=== PATIENT | female | born 1995 | race Caucasian/White ===

== ENCOUNTER 2019-11-17 10:24 | Outpatient (REF) | payer SELFPAY ==
[2019-11-17 12:32] LABS: Estmated Average Glucose 105; Hemoglobin A1C 5.3 % (4.0-6.0)
[2019-11-17 13:58] LABS: Chol HDL Ratio 2.44 mg/dL (0.0-4.40); Cholesterol 134 mg/dL (0-200); Glucose 79 mg/dL (65-115); HDL Cholesterol 55 mg/dL (60-100); LDL Cholesterol Calculated 62 mg/dL (50-129); LDL HDL Ratio 1.13 RATIO (0.00-3.22); Triglycerides 85 mg/dL (0-150)
== END 2019-11-17 10:25 | disposition home or self-care (01) ==
LOC: LAB 10:24
PROVIDERS: Visit Provider Dermatology
DX: Z01.89 Encounter for other specified special examinations (principal)
CPT/HCPCS: 80061; 82947; 83036

== ENCOUNTER 2020-01-18 16:08 | Outpatient (CLI) | payer SELFPAY ==
[2020-01-18 16:30] LABS: Basophils # 0.1 10^3/uL (0.0-0.1); Basophils % 0.8 %; Eosinophils # 0.1 10^3/uL (0.0-0.8); Eosinophils % 1.3 %; Hematocrit 39.5 % (37.0-47.0); Hemoglobin 12.6 g/dL (11.5-15.3); Lymphocytes # 1.7 10^3/uL (0.8-4.8); Lymphocytes % 21.9 %; Mean Corpuscular HGB Conc 31.9 g/dL (30.0-36.0); Mean Corpuscular Hemoglobin 29.4 pg (28.0-34.0); Mean Corpuscular Volume 92.1 fL (81-99); Mean Platelet Volume 9.5 fL (7.4-10.4); Monocytes # 0.5 10^3/uL (0.2-0.9); Monocytes % 5.7 %; Neutrophils # 5.5 10^3/uL (1.8-7.7); Neutrophils % 70.2 %; Nucleated Red Blood Cells % 0 %; Platelet Count 279 10^3/cmm (130-400); Red Blood Count 4.29 10^6/uL (4.1-5.3); Red Cell Distribution Width 12.5 % (12.1-15.1); White Blood Count 7.9 10^3/uL (4.0-10.0)
[2020-01-18 16:50] LABS: Alanine Aminotransferase 9 U/L (0-33); Albumin Level 4.5 g/dL (3.5-5.2); Alkaline Phosphatase 129 IU/L (35-105); Anion Gap 13.7 (5-19); Aspartate Amino Transferase 16 U/L (0-32); Blood Urea Nitrogen 10 mg/dL (6-20); Calcium 9.9 mg/dL (8.5-10.5); Carbon Dioxide 25 mmol/L (22-29); Chloride 105 mmol/L (98-107); Globulin 2.4 g/dL (1.3-4.6); Glomerular Filtration Rate 104.6 mL/min (90-130); Glucose 97 mg/dL (65-115); Osmolality Calculated 286 mOsm/kg (285-295); Potassium 3.7 mmol/L (3.5-5.1); Sodium 140 mmol/L (136-145); Total Bilirubin 0.5 mg/dL (0.15-1.2); Total Protein 6.9 g/dL (6.6-8.7)
[2020-01-18 16:57] LABS: D Dimer <= 0.27 ug/mIFEU (0-0.59)
== END 2020-01-18 16:09 | disposition home or self-care (01) ==
PROVIDERS: Visit Provider Nurse Practitioner Family
DX: R06.00 Dyspnea, unspecified (principal)
CPT/HCPCS: 36415; 80053; 85025; 85378

== ENCOUNTER 2020-08-01 10:51 | Emergency (ER) | payer SELFPAY ==
[2020-08-01 11:13] VITALS: BP 116/73; PULSE 87; RESP 14; TEMP 37.1; O2SAT 98; BMI 29.2
--- NOTE | 2020-08-01 11:19 | US_ITS ---
WS: [id number] OB ultrasound, 08/01/2020 Clinical Data: vaginal bleeding and cramping Comparison: None. Findings: Cervical length is 3.39 cm and it is closed. No abruption is seen. There is a single interuterine . heart rate is 101 beats per minute. There is a yolk sac present measuring 0.44 cm. The crown-rump length measured 0.4 cm and the gestatio nal sac 1.99 cm. The estimated gestational age 6w3d is with an ART of approximately 03/24/2021. The left ovary measured 2.6 cm x 2.6 cm x 3.1 cm. There is a simple left ovarian cyst measuring 1.49 x 1.77 x 2.16 cm. There is a cyst measuring 1.81 x 1.9 x 1.91 cm which has uniform echotexture and co uld represent a hemorrhagic cyst. The right ovary measured 3.44 cm x 3.45 cm x 1.25 cm. No right ovarian cysts or masses are seen. No fluid is seen in the cul-de-sac. US/US OB <=14 wk fetus w transvag Impression: 1. Single interuterine . 2. Estimated gestational age of 6w3d with an ART of 03/24/2021. 3. heart rate 101 beats per minute.
--- NOTE | 2020-08-01 11:33 | W.ED.GENADLT ---
HPI - General Adult General: Chief complaint: General Medical Stated complaint: KEEPS PASSING OUT Time Seen by Provider: 08/01/20 11:18 Source: patient Mode of arrival: ambulatory Limitations: no limitations History of Present Illness: HPI narrative: The patient is a 25-year-old female who has been feeling unwell for about 5 days. She has had nonspecific symptoms which include abdominal cramping, loss of appetite, vomiting and diarrhea, fever today of 101. 4 days ago she went to another emergency department and discovered that she was then. She was unaware that she was prior to this. LMP 06/24/2020. She is a and estimated gestational age is 5 weeks and 3 days. She feels very unwell and would like to be evaluated. Last night she started having some vaginal bleeding and today she said it got much worse. She has had 2 episodes of syncope one yesterday and one today. Associated symptoms: Reports nausea, syncope and vomiting; Deny dyspnea, headache(s), rash or palpitations Review of Systems General: Reports: 10 or more systems reviewed and unremarkable except in HPI and below Const: Reports: fever(s) and chills; Denies: body aches Eyes: Denies: change in vision or blurry vision ENMT: Denies: throat pain, enlarged tonsils, odynophagia, hoarseness, mouth pain or swelling of lips/tongue Card: Reports: syncope; Denies: palpitations, irregular heart rhythm, edema or swelling of feet/ankles Resp: Denies: dyspnea or productive cough GI: Reports: abdominal pain, nausea and vomiting : Reports: vaginal bleeding; Denies: flank pain, difficulty voiding, dysuria, urinary frequency, urinary urgency or urinary hesitancy Musc: Denies: neck pain, back pain or extremity swelling Skin/Breast: Denies: rash, pruritus or erythema Neuro: Reports: dizziness; Denies: headache(s), numbness in extremities or weakness in extremities Endo: Denies: polyuria, polydipsia or tired all the time Physical Exam Const: COMMON NORMALS: no acute distress, average body habitus, patient oriented x3, no limitations, healthy appearing, alert and well nourished HENMT: COMMON NORMALS: normocephalic, atraumatic and moist oral mucous membranes HEAD & SCALP: normocephalic and atraumatic Eye: COMMON NORMALS: Equal, round and reactive pupils present, EOMs intact bilaterally, conjunctivae normal and no scleral icterus CONJUNCTIVA: Yes conjunctivae normal PUPIL: Yes Equal, round and reactive pupils present Neck/C-Spine: COMMON NORMALS: full ROM, supple, no meningeal signs, no JVD and No carotid bruits Resp: COMMON NORMALS: normal respiratory effort, No retractions, No use of accessory muscles, clear to auscultation bilaterally and percussion normal AUSCULTATION: clear to auscultation bilaterally PERCUSSION: percussion normal Cardio: COMMON NORMALS: no JVD, regular rate, regular rhythm, S1 normal heart sound present, S2 normal heart sound present, No gallops present (Cardio), No clicks present (Cardio), No murmurs present (Cardio), No rub (Cardio) and Peripheral pulses 2+ throughout RATE: regular rate RHYTHM: regular rhythm HEART SOUNDS: S1 normal heart sound present and S2 normal heart sound present PERIPHERAL PULSES: Peripheral pulses 2+ throughout GI: COMMON NORMALS: Normal to inspection, nondistended, normoactive bowel sounds present, Soft to palpation, non-tender, No hepatosplenomegaly present, no masses and no bruits PALPATION: Yes Soft to palpation and Yes No hepatosplenomegaly present Extremity: COMMON NORMALS: normal to inspection, full ROM, capillary refill normal, no calf tenderness and no pedal edema Neuro: COMMON NORMALS: patient oriented x3 SENSORIUM/ORIENTATION: Yes alert MENINGEAL SIGNS: Yes no meningeal signs Skin: COMMON NORMALS: no rashes or lesions noted, no wounds, turgor normal, no jaundice, no petechiae and no mottling GENERAL SKIN EXAM: no rashes or lesions noted and turgor normal Course Reevaluation(s): Reevaluation #1: Discussed her lab and imaging findings with her, negative for acute findings. Ultrasound shows hemorrhagic left ovarian cyst as well as a single intrauterine at just about 6 weeks. Her labs are all unremarkable hemoglobin normal, UA negative, white cell count normal. We will discharge her home with no new orders. She voiced understanding and is in agreement with the plan. We will give a prescription of doxylamine pyridoxine. She will call an automotive general manager to set up an appointment. Time: 13:58 Vital Signs: Vital signs: Vital Signs Temperature 98.7 F 08/01/20 11:13 Pulse Rate 81 08/01/20 13:47 Respiratory Rate 18 08/01/20 13:47 Blood Pressure 98/46 08/01/20 13:47 Pulse Oximetry 100 08/01/20 13:47 MDM - General Adult MDM Narrative: Medical decision making narrative: 25-year-old female patient with a threatened . Ultrasound was negative for acute findings other than an ovarian cyst. Other labs unremarkable. She is discharged home with a prescription for doxylamine and pyridoxine. Medical Records: Attestation: I reviewed the patient's medical records. Lab Data: Attestation: I reviewed the patient's lab results. Labs: Lab Results 08/01/20 08/01/20 08/01/20 Range/Units 11:25 11:35 11:35 WBC 7.5 (4.0-10.0) 10^3/ uL RBC 4.44 (4.1-5.3) 10^6/u L Hgb 13.5 (11.5-15.3) g/dL Hct 42.2 (37.0-47.0) % MCV 95.0 (81-99) fL MCH 30.4 (28.0-34.0) pg MCHC 32.0 (30.0-36.0) g/dL RDW 12.7 (12.1-15.1) % Plt Count 294 (130-400) 10^3/c mm MPV 9.6 (7.4-10.4) fL Neut % (Auto) 71.6 % Lymph % (Auto) 17.8 % [place] % (Auto) 6.2 % Eos % (Auto) 3.6 % Baso % (Auto) 0.5 % Neut # (Auto) 5.35 (1.8-7.7) 10^3/u L Lymph # (Auto) 1.3 (0.8-4.8) 10^3/u L [place] # (Auto) 0.5 (0.2-0.9) 10^3/u L Eos # (Auto) 0.3 (0.0-0.8) 10^3/u L Baso # (Auto) 0.0 (0.0-0.1) 10^3/u L Nucleated RBC % (a uto) 0 % Nucleated RBCs # 0.0 /100WBC Sodium 136 (136-145) mmol/L Potassium 4.3 (3.5-5.1) mmol/L Chloride 101 (98-107) mmol/L Carbon Dioxide 28 (22-29) mmol/L Anion Gap 11.3 (5-19) BUN 12 (6-20) mg/dL Creatinine 0.5 (0.5-0.9) mg/dL GFR Calculation 152.9 H (90-130) mL/min Glucose 111 (65-115) mg/dL Calculated Osmolal ity 282 L (285-295) mOsm/k g Calcium 9.4 (8.5-10.5) mg/dL Total Bilirubin 0.3 (0.15-1.2) mg/dL AST 13 (0-32) U/L ALT 10 (0-33) U/L Alkaline Phosphata se 95 (35-105) IU/L Total Protein 7.0 (6.6-8.7) g/dL Albumin 4.2 (3.5-5.2) g/dL Globulin 2.8 (1.3-4.6) g/dL HCG, Qual (Negative) Ser , Coco i-Qnt 89386.00 mIU/mL Urine Color (Yellow) Urine Appearance (CLEAR) Urine pH (5-7) Ur Specific Gravit y (1.005-1.030) Urine Protein (Negative) Urine Glucose (UA) (Normal) Urine Ketones (Negative) Urine Blood (Negative) Urine Nitrate (Negative) Urine Bilirubin (Negative) Urine Urobilinogen (Negative) mg/dL Ur Leukocyte Marcelle ase (Negative) Blood Type Rho(D) Type 08/01/20 08/01/20 08/01/20 Range/Units 11:35 11:35 12:40 WBC (4.0-10.0) 10^3/ uL RBC (4.1-5.3) 10^6/u L Hgb (11.5-15.3) g/dL Hct (37.0-47.0) % MCV (81-99) fL MCH (28.0-34.0) pg MCHC (30.0-36.0) g/dL RDW (12.1-15.1) % Plt Count (130-400) 10^3/c mm MPV (7.4-10.4) fL Neut % (Auto) % Lymph % (Auto) % [place] % (Auto) % Eos % (Auto) % Baso % (Auto) % Neut # (Auto) (1.8-7.7) 10^3/u L Lymph # (Auto) (0.8-4.8) 10^3/u L [place] # (Auto) (0.2-0.9) 10^3/u L Eos # (Auto) (0.0-0.8) 10^3/u L Baso # (Auto) (0.0-0.1) 10^3/u L Nucleated RBC % (a uto) % Nucleated RBCs # /100WBC Sodium (136-145) mmol/L Potassium (3.5-5.1) mmol/L Chloride (98-107) mmol/L Carbon Dioxide (22-29) mmol/L Anion Gap (5-19) BUN (6-20) mg/dL Creatinine (0.5-0.9) mg/dL GFR Calculation (90-130) mL/min Glucose (65-115) mg/dL Calculated Osmolal ity (285-295) mOsm/k g Calcium (8.5-10.5) mg/dL Total Bilirubin (0.15-1.2) mg/dL AST (0-32) U/L ALT (0-33) U/L Alkaline Phosphata se (35-105) IU/L Total Protein (6.6-8.7) g/dL Albumin (3.5-5.2) g/dL Globulin (1.3-4.6) g/dL HCG, Qual Positive H (Negative) Ser , Coco i-Qnt mIU/mL Urine Color Yellow (Yellow) Urine Appearance Clear (CLEAR) Urine pH 6 (5-7) Ur Specific Gravit y 1.015 (1.005-1.030) Urine Protein Neg (Negative) Urine Glucose (UA) Norm (Normal) Urine Ketones Negative (Negative) Urine Blood Neg (Negative) Urine Nitrate Negative (Negative) Urine Bilirubin Neg (Negative) Urine Urobilinogen Norm (Negative) mg/dL Ur Leukocyte Marcelle ase Negative (Negative) Blood Type A Positive Rho(D) Type Positive Imaging Data^: US OB: Attestation: I personally reviewed and interpreted this imaging study as follows: Radiologist's impression: [address] [place] [address] Ultrasound Report Signed Patient: Carter PHILLIPS #: [id number] : 1995Acct#:[id number] Age/Sex: 25 / FADM Date: 08/01/20 Loc: ERRoom/Bed: Attending Dr: Ordering Provider/Ordering MD: Ellyn Herrera MD, [facility] Date of Service: 08/01/20 Procedure(s): US OB <=14 wk fetus w transvag Accession Number(s): [id number] Report Number: [id number] WS: [id number] OB ultrasound, 08/01/2020 Clinical Data: vaginal bleeding and cramping Comparison: None. Findings: Cervical length is 3.39 cm and it is closed. No abruption is seen. There is a single interuterine . heart rate is 101 beats per minute. There is a yolk sac present measuring 0.44 cm. The crown-rump length measured 0.4 cm and the gestational sac 1.99 cm. The estimated gestational age 6w3d is with an ART of approximately 03/24/2021. The left ovary measured 2.6 cm x 2.6 cm x 3.1 cm. There is a simple left ovarian cyst measuring 1.49 x 1.77 x 2.16 cm. There is a cyst measuring 1.81 x 1.9 x 1.91 cm which has uniform echotexture and could represent a hemorrhagic cyst. The right ovary measured 3.44 cm x 3.45 cm x 1.25 cm. No right ovarian cysts or masses are seen. No fluid is seen in the cul-de-sac. US/US OB <=14 wk fetus w transvag Impression: 1. Single interuterine . 2. Estimated gestational age of 6w3d with an ART of 03/24/2021. 3. heart rate 101 beats per minute. Dictated By:Dorinda Perez MD Signed By:Dorinda Perez MDSigned Date/Time:08/01/20 1247 DD/ 1240 Discharge Plan Discharge Patient Disposition: Home Clinical Impression: Threatened , Vomiting of , Hemorrhagic cyst of left ovary Condition: Stable Prescriptions: New doxylamine-pyridoxine (vit B6) 10-10 mg tablet,delayed release (DR/EC) 1 tab PO TID Qty: 30 RF: 0 Discharge Orders: Discharge Order (Routine); Ordered 08/01/20 Ordered By: Ellyn Herrera Discharge Diet: Advance as tolerated Discharge Activity: Resume usual activity Patient Instructions: Threatened Miscarriage (ED), Hyperemesis Gravidarum (ED) Activity Restrictions/Additional Instructions: Return for any new or worsening symptoms. Follow-up with your provider as soon as possible, get an automotive general manager as soon as possible to follow-up. Take the nausea medicine as prescribed, start with 2 at night and you can increase to 1 tablet in the morning 1 tablet in the afternoon and 2 at night. Do not take more than 4 tablets in 24 hours. Coding Level of Care Code ED Conference Concierge for Evan Fwd Exam Comprehensive
[2020-08-01 11:45] VITALS: BP 113/72; BP 120/71; BP 121/78; PULSE 83; PULSE 84; PULSE 96
[2020-08-01] MEDS: ondansetron 2 mg/ML SDV 2 mL 4 MG IVP (11:48)
[2020-08-01 11:52] LABS: Basophils % 0.5 %; Eosinophils # 0.3 10^3/uL (0.0-0.8); Eosinophils % 3.6 %; Hematocrit 42.2 % (37.0-47.0); Hemoglobin 13.5 g/dL (11.5-15.3); Lymphocytes # 1.3 10^3/uL (0.8-4.8); Lymphocytes % 17.8 %; Mean Corpuscular Hemoglobin 30.4 pg (28.0-34.0); Mean Platelet Volume 9.6 fL (7.4-10.4); Monocytes # 0.5 10^3/uL (0.2-0.9); Monocytes % 6.2 %; Neutrophils # 5.35 10^3/uL (1.8-7.7); Neutrophils % 71.6 %; Nucleated Red Blood Cells % 0 %; Platelet Count 294 10^3/cmm (130-400); Red Blood Count 4.44 10^6/uL (4.1-5.3); Red Cell Distribution Width 12.7 % (12.1-15.1); White Blood Count 7.5 10^3/uL (4.0-10.0)
[2020-08-01 12:19] LABS: Alanine Aminotransferase 10 U/L (0-33); Albumin Level 4.2 g/dL (3.5-5.2); Alkaline Phosphatase 95 IU/L (35-105); Anion Gap 11.3 (5-19); Aspartate Amino Transferase 13 U/L (0-32); Blood Urea Nitrogen 12 mg/dL (6-20); Calcium 9.4 mg/dL (8.5-10.5); Carbon Dioxide 28 mmol/L (22-29); Chloride 101 mmol/L (98-107); Globulin 2.8 g/dL (1.3-4.6); Glomerular Filtration Rate 152.9 mL/min (90-130); Glucose 111 mg/dL (65-115); Osmolality Calculated 282 mOsm/kg (285-295); Potassium 4.3 mmol/L (3.5-5.1); Sodium 136 mmol/L (136-145); Total Bilirubin 0.3 mg/dL (0.15-1.2)
[2020-08-01 12:40] LABS: HCG, Serum Qual Positive (Negative)
[2020-08-01] MEDS: sodium chloride 0.9% 1,000 ML 999 ML IV (12:46)
[2020-08-01 13:12] LABS: Add Urine Microscopic? NO; Bilirubin Urine Neg (Negative); Blood Urine Neg (Negative); Glucose Urine UA Norm (Normal); Ketones Urine Negative (Negative); Leukocyte Esterase Urine Negative (Negative); Nitrate Urine Negative (Negative); Protein Urine Neg (Negative); Specific Gravity, Urine 1.015 (1.005-1.030); Urine Appearance Clear (CLEAR); Urine Color Yellow (Yellow); Urobilinogen Urine Norm (Negative); pH Urine 6 (5-7)
[2020-08-01 13:47] VITALS: BP 98/46; PULSE 81; RESP 18; O2SAT 100
[2020-08-01] MEDS: promethazine 25 mg/mL SDV 1 mL IM (13:59)
[2020-08-01 14:51] VITALS: BP 98/51; PULSE 80; RESP 16; O2SAT 100
== END 2020-08-01 14:52 | disposition home or self-care (01) ==
PROVIDERS: Emergency Provider Family Medicine
DX: O20.0 Threatened abortion (principal); Z3A.01 Less than 8 weeks gestation of pregnancy; O26.891 Other specified pregnancy related conditions, first trimester; O34.81 Maternal care for other abnormalities of pelvic organs, first trimester; N83.202 Unspecified ovarian cyst, left side
CPT/HCPCS: 12345; 76801; 76817; 80053; 81003; 84702; 84703; 85025; 86900; 96361; 96372; 96374; 96375; 99283; J2405; J2550; J7030

== ENCOUNTER → 2020-08-12 16:13 | Outpatient (BNVA) | payer MEDICAID, SELFPAY | PROVIDERS: Visit Provider Obstetrics & Gynecology | DX: O20.0 Threatened abortion (principal) | CPT/HCPCS: 84702 ==

== ENCOUNTER 2020-08-15 09:17 | Outpatient (CLI) | payer MEDICAID, SELFPAY | END 2020-08-15 09:18 | disposition home or self-care (01) | LOC: LAB 09:21 | PROVIDERS: Visit Provider Obstetrics & Gynecology | DX: O20.0 Threatened abortion (principal) | CPT/HCPCS: 36415; 84315; 84702 ==

== ENCOUNTER 2020-08-26 02:21 | Emergency (ER) | payer SELFPAY ==
[2020-08-26 02:27] VITALS: BP 91/56; PULSE 90; RESP 16; TEMP 36.6; O2SAT 99; BMI 30.2
--- NOTE | 2020-08-26 02:37 | US_ITS ---
WS: [id number] EARLY OBSTETRICAL ULTRASOUND (<14 WEEKS). HISTORY: Abdominal pain, incomplete spontaneous . COMPARISON: 08/15/2020 Previously described intrauterine gestation is no longer present. There is thickening and heterogenei ty within the endometrial canal consistent with incomplete spontaneous with persistent blood products. No pole or cardiac activity is identified. Products of the gestation also noted cherise g the cervix. No free fluid. Ovaries are both identified and normal size. US/US OB <= 14 weeks fetus [id number] IMPRESSION: 1. Incomplete spontaneous . 2. Moderate amount of retained blood products along the endocervical canal.
--- NOTE | 2020-08-26 02:42 | ED_ITS ---
HPI - Female Genitourinary General: Chief complaint: Vaginal Bleeding Stated complaint: 10wks preg/suspects miscarriage Time Seen by Provider: 08/26/20 02:41 History of Present Illness: HPI Narrative: 25-year-old female with intrauterine documented at about 10 weeks. She presents with abdominal cramping, and brisk vaginal bleeding with clots, soaking about 3 pads in an hour tonight. No fever. No other discharge. MD elicited complaint: vaginal bleeding, pelvic pain and possible miscarriage Pertinent past history: other Onset (ago): hour(s) Location of symptoms: pelvis Severity: moderate Female Urogenital Radiation: Non-Radiating Quality of pain: cramping and stabbing Consistency: intermittent Vaginal discharge: none Vaginal bleeding: moderate and clots Relieving factors: none Associated symptoms: Reports abdominal pain, nausea and vaginal bleeding; Deny fevers/chills or vaginal discharge Sexual activity: Yes Patient : Yes Related Data: : 3 Review of Systems Const: Denies: fever(s) or chills Card: Denies: chest pain or palpitations Resp: Denies: dyspnea or productive cough GI: Reports: abdominal pain and nausea : Denies: vaginal discharge PFSH ED PFSH: Family History Grandmother Clotting disorder maternal Diabetes maternal Father Stroke Family/Other Breast cancer maternal aunt Denies family history of Colon cancer Ovarian cancer Heart disease Hyperlipidemia Anesthesia complication Bleeding disorder Hypertension Uterine cancer Thyroid condition Social History (Updated 08/16/20 @ 15:57 by Mavis Farnsworth RN) Smoking and tobacco status: never smoked Alcohol intake: former Former alcohol use details: prior to Female Reproductive History: : 3 Physical Exam Const: COMMON NORMALS: patient oriented x3, alert and well nourished Chest: COMMONS NORMALS: normal inspection of the chest Resp: COMMON NORMALS: normal respiratory effort, No retractions, No use of accessory muscles and clear to auscultation bilaterally AUSCULTATION: clear to auscultation bilaterally Cardio: COMMON NORMALS: regular rate, regular rhythm and No murmurs present (Cardio) RATE: regular rate RHYTHM: regular rhythm GI: COMMON NORMALS: Soft to palpation PALPATION: Yes Soft to palpation and Yes Tenderness to palpation present (GI) (suprapubic) : SPECULUM EXAM - VAGINA: Yes vaginal bleeding SPECULUM EXAM - CERVIX: Yes Cervical os open (small) OB/EXTERNAL & SPECULUM: Active bleeding present medium/moderate and with clots, Cervical os open (small) and vaginal bleeding Neuro: COMMON NORMALS: patient oriented x3 SENSORIUM/ORIENTATION: Yes alert Course Consultations: Consultation #Jani: Blas Time: 04:39 Vital Signs: Vital signs: Vital Signs Temperature 97.9 F 08/26/20 02:27 Pulse Rate 81 08/26/20 04:46 Respiratory Rate 15 08/26/20 04:46 Blood Pressure 92/52 08/26/20 04:46 Pulse Oximetry 97 08/26/20 04:46 MDM - Female MDM Narrative: Medical decision making narrative: 25-year-old female G3, P2. Pelvic pain and brisk vaginal bleeding. Pelvic exam performed by KADIE Thompson. Hemoglobin is 12. White blood cell count is 14. Ultrasound shows essentially a complete . There is no flow in the uterus. No sac. cervix is nearly closed on exam. She still bleeding some in the ER. Blood pressure 108/64. Heart rate around 100. Saturations are 98%. Spoke with obstetrics. Plan is to allow discharge, return in 48 hours or so to clinic to check H&H as well as hCG levels. Lab Data: Labs: Lab Results 08/26/20 08/26/20 Range/Units 03:00 03:00 WBC 14.1 H (4.0-10.0) 10^3/ uL RBC 4.01 L (4.1-5.3) 10^6/u L Hgb 12.0 (11.5-15.3) g/dL Hct 37.3 (37.0-47.0) % MCV 93.0 (81-99) fL MCH 29.9 (28.0-34.0) pg MCHC 32.2 (30.0-36.0) g/dL RDW 13.0 (12.1-15.1) % Plt Count 328 (130-400) 10^3/c mm MPV 9.7 (7.4-10.4) fL Neut % (Auto) 78.1 % Lymph % (Auto) 14.4 % [place] % (Auto) 5.0 % Eos % (Auto) 1.5 % Baso % (Auto) 0.5 % Neut # (Auto) 10.98 H (1.8-7.7) 10^3/u L Lymph # (Auto) 2.0 (0.8-4.8) 10^3/u L [place] # (Auto) 0.7 (0.2-0.9) 10^3/u L Eos # (Auto) 0.2 (0.0-0.8) 10^3/u L Baso # (Auto) 0.1 (0.0-0.1) 10^3/u L Nucleated RBC % (a uto) 0 % Nucleated RBCs # 0.0 /100WBC Sodium 135 L (136-145) mmol/L Potassium 3.6 (3.5-5.1) mmol/L Chloride 100 (98-107) mmol/L Carbon Dioxide 26 (22-29) mmol/L Anion Gap 12.6 (5-19) BUN 8 (6-20) mg/dL Creatinine 0.4 L (0.5-0.9) mg/dL GFR Calculation 197.8 H (90-130) mL/min Glucose 95 (65-115) mg/dL Calculated Osmolal ity 278 L (285-295) mOsm/k g Calcium 8.9 (8.5-10.5) mg/dL Total Bilirubin 0.2 (0.15-1.2) mg/dL AST 16 (0-32) U/L ALT 11 (0-33) U/L Alkaline Phosphata se 107 H (35-105) IU/L Total Protein 6.2 L (6.6-8.7) g/dL Albumin 3.6 (3.5-5.2) g/dL Globulin 2.6 (1.3-4.6) g/dL Lipase 19 (13-60) U/L Ser , Coco i-Qnt 824431.00 mIU/mL Discharge Plan Discharge Patient Disposition: Home Clinical Impression: Complete Condition: Stable Prescriptions: New Zofran 4 mg tablet 4 mg PO Q6H PRN (Reason: nausea and vomiting) Qty: 10 RF: 0 Percocet 7.5-325 mg tablet 1 tab PO Q6H PRN (Reason: pain) Qty: 10 RF: 0 No Action doxylamine-pyridoxine (vit B6) [Diclegis] 10-10 mg tablet,delayed release (DR/EC) 1 tab PO TID Qty: 90 RF: 0 prenat.vits,adrianna,[id number]-urgbv Tablet 1 tab PO DAILY Qty: 90 RF: 3 Discharge Orders: Discharge Order (Routine); Ordered 08/26/20 Ordered By: Mihai Rivera Referrals: Ernesto Leung MD [Primary Care Provider] - 1-3 days Discharge Diet: Advance as tolerated Discharge Activity: Limit activity as instructed Patient Instructions: Spontaneous Miscarriage (ED) Activity Restrictions/Additional Instructions: Return to the ER for continuing to soak 3 pads an hour for more than 3 to 4 hours. Return also for fever greater than 100, vomiting liquids or medications, worsening pain despite treatment, other concerning symptoms. Follow-up with your painter helper sign in 48 hours or so for repeat exam and testing. Call them later this morning. Medications as directed. Stand Alone Forms: Work/School Release Coding Level of Care Code ED Paperback Machine Operator for Chg Fwd Exam Detailed
[2020-08-26] MEDS: ondansetron 2 mg/ML SDV 2 mL 4 MG IVP ×2 (02:57→04:36)
[2020-08-26] MEDS: sodium chloride 0.9% 1,000 ML 999 ML IV (02:58)
[2020-08-26] MEDS: fentaNYL 50 mcg/mL INJ 2mL IVP ×2 (02:58→04:44)
[2020-08-26 03:01] VITALS: BP 125/77; PULSE 96; RESP 17; O2SAT 96
[2020-08-26 03:17] LABS: Basophils # 0.1 10^3/uL (0.0-0.1); Basophils % 0.5 %; Eosinophils # 0.2 10^3/uL (0.0-0.8); Eosinophils % 1.5 %; Hematocrit 37.3 % (37.0-47.0); Lymphocytes % 14.4 %; Mean Corpuscular HGB Conc 32.2 g/dL (30.0-36.0); Mean Corpuscular Hemoglobin 29.9 pg (28.0-34.0); Mean Platelet Volume 9.7 fL (7.4-10.4); Monocytes # 0.7 10^3/uL (0.2-0.9); Neutrophils # 10.98 10^3/uL (1.8-7.7); Neutrophils % 78.1 %; Nucleated Red Blood Cells % 0 %; Platelet Count 328 10^3/cmm (130-400); Red Blood Count 4.01 10^6/uL (4.1-5.3); White Blood Count 14.1 10^3/uL (4.0-10.0)
[2020-08-26 03:47] LABS: Alanine Aminotransferase 11 U/L (0-33); Albumin Level 3.6 g/dL (3.5-5.2); Alkaline Phosphatase 107 IU/L (35-105); Anion Gap 12.6 (5-19); Aspartate Amino Transferase 16 U/L (0-32); Blood Urea Nitrogen 8 mg/dL (6-20); Calcium 8.9 mg/dL (8.5-10.5); Carbon Dioxide 26 mmol/L (22-29); Chloride 100 mmol/L (98-107); Globulin 2.6 g/dL (1.3-4.6); Glomerular Filtration Rate 197.8 mL/min (90-130); Glucose 95 mg/dL (65-115); Lipase 19 U/L (13-60); Osmolality Calculated 278 mOsm/kg (285-295); Potassium 3.6 mmol/L (3.5-5.1); Sodium 135 mmol/L (136-145); Total Bilirubin 0.2 mg/dL (0.15-1.2); Total Protein 6.2 g/dL (6.6-8.7)
[2020-08-26 03:58] VITALS: BP 101/60; PULSE 77; RESP 18; O2SAT 99
[2020-08-26] MEDS: ketorolac 30 mg/mL INJ IVP (04:36)
[2020-08-26 04:38] VITALS: BP 92/52; PULSE 77; RESP 16; O2SAT 98
[2020-08-26 04:46] VITALS: BP 92/52; PULSE 81; RESP 15; O2SAT 97
[2020-08-26 05:08] VITALS: BP 106/63; PULSE 77; RESP 17; O2SAT 99
== END 2020-08-26 05:11 | disposition home or self-care (01) ==
PROVIDERS: Emergency Provider Emergency Medicine; PCP Obstetrics & Gynecology
DX: O03.9 Complete or unspecified spontaneous abortion without complication (principal)
CPT/HCPCS: 12345; 76801; 80053; 83690; 84702; 85025; 96361; 96374; 96375; 96376; 99282; 99283; J1885; J2405; J3010; J7030

== ENCOUNTER → 2020-08-29 10:48 | Outpatient (BNVA) | payer MEDICAID, SELFPAY | PROVIDERS: PCP Obstetrics & Gynecology; Visit Provider Obstetrics & Gynecology | DX: O03.9 Complete or unspecified spontaneous abortion without complication (principal) | CPT/HCPCS: 84702 ==

== ENCOUNTER 2020-08-30 21:44 | Emergency (ER) | payer SELFPAY ==
[2020-08-30 21:59] VITALS: BP 120/85; PULSE 84; RESP 18; TEMP 36.5; O2SAT 99; BMI 32.1
--- NOTE | 2020-08-30 22:09 | USR_ITS ---
PROCEDURE INFORMATION: Exam: US Nonobstetric Pelvis; Complete Exam date and time: 08/30/2020 10:11 PM Age: 25 years old Clinical indication: Other: Miscarriage, bleeding since Wednesday; Additional info: Continued bleeding after miscarriage TECHNIQUE: Imaging protocol: Transabdominal pelvic nonobstetric ultrasound. Complete exam. Real time ultrasound with image documentation. COMPARISON: US Pelvis Female [id number] 01/09/2014 3:43 PM FINDINGS: Uterus/cervix: The uterus measures 9.6 x 5.3 x 7.3 cm. The endometrium is thickened and inhomogenous measuring 2.1 cm. Focal hypervascularity evident superiorly. Fluid or blood within the endocervical canal. Right adnexa: The right ovary measures 2.9 x 1.1 x 2.7 cm with small follicles and normal blood flow. Left adnexa: The left ovary measures 2.6 x 2.2 x 3.1 cm with a 1.8 cm follicle and normal blood flow. Intraperitoneal space: No intraperitoneal free fluid. Urinary bladder: Normal. US/US pelvic with transvaginal IMPRESSION: 1. Inhomogenous thickened endometrium with focal hypervascularity in the superior fundal portion. This is suspicious for retained products of conception and endometrial blood products. Correlation with quantitative beta HCG values recommended. 2. Small amount of fluid or blood in the endocervical canal.
--- NOTE | 2020-08-30 22:14 | W.ED.PREGNAN ---
HPI - General: Chief complaint: Vaginal Bleeding Stated complaint: complications from miscarriage mon Time Seen by Provider: 08/30/20 22:09 History of Present Illness: HPI Narrative: Patient seen here in the ER on Wednesday incomplete . Miscarried seen Dr. Leung's office yesterday hCG count was still high they did not do an exam or make any recommendation at that time she called the office they said to come in here Complaint: vaginal bleeding (Patient is passing clots been using about 1 pad an hour she says presently) Onset (ago): day(s) Quality: Cramping care: followed by OB Associated symptoms: Reports no associated symptoms (Had fever yesterday while in doctor's office); Deny abdominal pain, headache(s), nausea or vomiting Review of Systems Const: Denies: fever(s), chills or body aches Eyes: Denies: change in vision or blurry vision ENMT: Denies: throat pain or nasal congestion Card: Denies: chest pain or dyspnea on exertion Resp: Denies: dyspnea, productive cough or non-productive cough GI: Denies: abdominal pain, nausea or vomiting : Reports: vaginal bleeding Musc: Denies: extremity pain Skin/Breast: Denies: rash Neuro: Denies: headache(s) Psych: Denies: anxiety or depression Carlo/Lymph: Denies: easy bruising PFSH ED PFSH: Family History Grandmother Clotting disorder maternal Diabetes maternal Father Stroke Family/Other Breast cancer maternal aunt Denies family history of Colon cancer Ovarian cancer Heart disease Hyperlipidemia Anesthesia complication Bleeding disorder Hypertension Uterine cancer Thyroid condition Social History (Updated 08/16/20 @ 15:57 by Mavis Farnsworth RN) Smoking and tobacco status: never smoked Alcohol intake: former Former alcohol use details: prior to Physical Exam Const: COMMON NORMALS: no acute distress, average body habitus and patient oriented x3 HENMT: COMMON NORMALS: normocephalic HEAD & SCALP: normal to inspection and normocephalic FACE & SINUS: normal facial exam Eye: COMMON NORMALS: conjunctivae normal GENERAL EYE: appearance normal, both eyes and all related structures CONJUNCTIVA: Yes conjunctivae normal Neck/C-Spine: COMMON NORMALS: no JVD Chest: COMMONS NORMALS: normal inspection of the chest Resp: COMMON NORMALS: normal respiratory effort Cardio: COMMON NORMALS: no JVD GI: INSPECTION: Yes normal to inspection Extremity: COMMON NORMALS: normal to inspection and full ROM Neuro: COMMON NORMALS: patient oriented x3 Course Vital Signs: Vital signs: Vital Signs Temperature 97.7 F 08/30/20 21:59 Pulse Rate 88 08/30/20 22:19 Respiratory Rate 16 08/30/20 22:39 Blood Pressure 117/76 08/30/20 23:18 Pulse Oximetry 98 08/30/20 22:19 MDM - OB/Uterine Contractions MDM Narrative: Medical decision making narrative: Discussed case and results with Dr. Rivera Lab Data: Labs: Lab Results 08/30/20 08/30/20 Range/Units 22:31 22:31 WBC 8.2 (4.0-10.0) 10^3/ uL RBC 3.85 L (4.1-5.3) 10^6/u L Hgb 11.5 (11.5-15.3) g/dL Hct 36.4 L (37.0-47.0) % MCV 94.5 (81-99) fL MCH 29.9 (28.0-34.0) pg MCHC 31.6 (30.0-36.0) g/dL RDW 12.5 (12.1-15.1) % Plt Count 309 (130-400) 10^3/c mm MPV 9.7 (7.4-10.4) fL Neut % (Auto) 62.8 % Lymph % (Auto) 25.8 % [place] % (Auto) 6.5 % Eos % (Auto) 4.0 % Baso % (Auto) 0.5 % Neut # (Auto) 5.13 (1.8-7.7) 10^3/u L Lymph # (Auto) 2.1 (0.8-4.8) 10^3/u L [place] # (Auto) 0.5 (0.2-0.9) 10^3/u L Eos # (Auto) 0.3 (0.0-0.8) 10^3/u L Baso # (Auto) 0.0 (0.0-0.1) 10^3/u L Nucleated RBC % (a uto) 0 % Nucleated RBCs # 0.0 /100WBC Ser , Coco i-Qnt 9493.00 mIU/mL Discharge Plan Discharge Prescriptions: No Action doxylamine-pyridoxine (vit B6) [Diclegis] 10-10 mg tablet,delayed release (DR/EC) 1 tab PO TID Qty: 90 RF: 0 prenat.vits,adrianna,mpp-haaf-xenau Tablet 1 tab PO DAILY Qty: 90 RF: 3 Zofran 4 mg tablet 4 mg PO Q6H PRN (Reason: nausea and vomiting) Qty: 10 RF: 0 Percocet 7.5-325 mg tablet 1 tab PO Q6H PRN (Reason: pain) Qty: 10 RF: 0 Coding Level of Care Code ED Whittling Room Operator for Chg Fwd Exam Comprehensive
[2020-08-30 22:19] VITALS: BP 126/68; PULSE 88; RESP 16; O2SAT 98
[2020-08-30 22:39] VITALS: BP 108/71; RESP 16
--- NOTE | 2020-08-30 22:46 | PC.NURSE ---
ultrasound in room
[2020-08-30 23:07] LABS: Basophils % 0.5 %; Eosinophils # 0.3 10^3/uL (0.0-0.8); Hematocrit 36.4 % (37.0-47.0); Hemoglobin 11.5 g/dL (11.5-15.3); Lymphocytes # 2.1 10^3/uL (0.8-4.8); Lymphocytes % 25.8 %; Mean Corpuscular HGB Conc 31.6 g/dL (30.0-36.0); Mean Corpuscular Hemoglobin 29.9 pg (28.0-34.0); Mean Corpuscular Volume 94.5 fL (81-99); Mean Platelet Volume 9.7 fL (7.4-10.4); Monocytes # 0.5 10^3/uL (0.2-0.9); Monocytes % 6.5 %; Neutrophils # 5.13 10^3/uL (1.8-7.7); Neutrophils % 62.8 %; Nucleated Red Blood Cells % 0 %; Platelet Count 309 10^3/cmm (130-400); Red Blood Count 3.85 10^6/uL (4.1-5.3); Red Cell Distribution Width 12.5 % (12.1-15.1); White Blood Count 8.2 10^3/uL (4.0-10.0)
[2020-08-30 23:18] VITALS: BP 117/76
[2020-08-30 23:53] VITALS: BP 112/81; PULSE 81; RESP 16; O2SAT 97
== END 2020-08-30 23:45 | disposition home or self-care (01) ==
PROVIDERS: Emergency Provider Nurse Practitioner Family; PCP Obstetrics & Gynecology
DX: N93.9 Abnormal uterine and vaginal bleeding, unspecified (principal)
CPT/HCPCS: 12345; 36415; 76830; 76856; 84702; 85025; 99283

== ENCOUNTER 2020-09-03 08:14 | Outpatient (CLI) | payer MEDICAID, SELFPAY | END 2020-09-03 08:15 | disposition home or self-care (01) | LOC: LAB 08:19 | PROVIDERS: PCP Obstetrics & Gynecology; Visit Provider Obstetrics & Gynecology | DX: O03.9 Complete or unspecified spontaneous abortion without complication (principal) | CPT/HCPCS: 36415; 84702 ==

== ENCOUNTER 2020-09-03 10:36 | Inpatient (IN) | payer SELFPAY ==
[2020-09-03 10:53] VITALS: BMI 31.7
[2020-09-03 11:36] VITALS: BP 107/71; PULSE 71; RESP 16; TEMP 36.9; O2SAT 98
[2020-09-03 12:23] LABS: Add Urine Microscopic? NO
[2020-09-03] MEDS: gentamicin inj 120 MG in sodium chloride 0.9% (100 ml) 100 ML 103 MG IV (12:25)
[2020-09-03 12:34] LABS: Bilirubin Urine Neg (Negative); Blood Urine Neg (Negative); Glucose Urine UA Norm (Normal); Ketones Urine Negative (Negative); Leukocyte Esterase Urine Negative (Negative); Nitrate Urine Negative (Negative); Protein Urine Neg (Negative); Urine Appearance Clear (CLEAR); Urine Color Yellow (Yellow); Urobilinogen Urine Norm (Negative); pH Urine 5 (5-7)
[2020-09-03 12:38] LABS: Basophils # 0.1 10^3/uL (0.0-0.1); Basophils % 0.9 %; Eosinophils # 0.1 10^3/uL (0.0-0.8); Eosinophils % 1.4 %; Hemoglobin 11.9 g/dL (11.5-15.3); Lymphocytes # 1.7 10^3/uL (0.8-4.8); Lymphocytes % 21.8 %; Mean Corpuscular HGB Conc 31.3 g/dL (30.0-36.0); Mean Corpuscular Hemoglobin 29.4 pg (28.0-34.0); Mean Corpuscular Volume 93.8 fL (81-99); Mean Platelet Volume 9.7 fL (7.4-10.4); Monocytes # 0.5 10^3/uL (0.2-0.9); Monocytes % 6.6 %; Nucleated Red Blood Cells % 0 %; Platelet Count 329 10^3/cmm (130-400); Red Blood Count 4.05 10^6/uL (4.1-5.3); Red Cell Distribution Width 12.5 % (12.1-15.1)
[2020-09-03] MEDS: ampicillin 2,000 MG in sodium chloride 0.9% (plus) 50 ML 100 MG IV ×2 (14:11→19:30)
[2020-09-03] MEDS: clindamycin 900 MG/50 ML PREMIX 100 MG IV ×2 (14:53→19:43)
[2020-09-03 15:06] VITALS: BP 106/69; PULSE 75; RESP 16; TEMP 36.7; O2SAT 98
[2020-09-03 15:44] LABS: Anion Gap 12.6 (5-19); Blood Urea Nitrogen 8 mg/dL (6-20); Carbon Dioxide 28 mmol/L (22-29); Chloride 103 mmol/L (98-107); Glomerular Filtration Rate 152.9 mL/min (90-130); Glucose 102 mg/dL (65-115); Osmolality Calculated 289 mOsm/kg (285-295); Potassium 3.6 mmol/L (3.5-5.1); Sodium 140 mmol/L (136-145)
[2020-09-03 19:25] VITALS: BP 105/71; PULSE 88; RESP 17; TEMP 36.9; O2SAT 100
[2020-09-03] MEDS: acetaminophen 325 mg Tablet 650 MG PO (19:47)
[2020-09-03] MEDS: sodium chloride 0.9% 1,000 ML 125 ML IV (21:44)
[2020-09-03 22:47] VITALS: BP 106/67; PULSE 73; RESP 15; TEMP 36.8; O2SAT 98
[2020-09-04] MEDS: ampicillin 2,000 MG in sodium chloride 0.9% (plus) 50 ML 100 MG IV ×4 (00:57→19:23)
[2020-09-04 03:30] VITALS: BP 89/56; PULSE 75; RESP 15; TEMP 36.8; O2SAT 99
[2020-09-04] MEDS: clindamycin 900 MG/50 ML PREMIX 100 MG IV ×3 (03:30→20:07)
--- NOTE | 2020-09-04 07:12 | PC.NURSE ---
DEANN FROM PHARMACY STATED TO DRAW PEAK GENTAMYCIN LEVEL THIRTY MINUTES BEFORE THIRD DOSE, AND TO DRAW TROUGH LEVEL IMMEDIATELY BEFORE ADMINISTRATION OF THE FIFTH DOSE.
[2020-09-04] MEDS: sodium chloride 0.9% 1,000 ML 125 ML IV (07:43)
[2020-09-04 07:48] VITALS: BP 90/57; PULSE 69; RESP 14; TEMP 36.9; O2SAT 99
--- NOTE | 2020-09-04 10:05 | P.HP_ITS ---
Providers/Chief Complaint Admitting Physician: Ernesto Leung MD Primary Care Provider: Ernesto Leung MD Chief Complaint: ENDOMETRIOSIS HPI FLY RAISER LOCKSTITCH History of Present Illness Ms. Parkinson is a 25 y/o with an LMP of 06/24/2020 who presents today for an emergency room follow up for a miscarriage. She is an established patient. She states that she had a gush of blood of Wednesday and then started bleeding heavier. She states that she went to the emergency room on Wednesday evening. She states that she was saturating a pad an hour when she left the hospital. She states that she has light vaginal bleeding today. She states that she wearing a panty liner today. She states that she is passing tissue. She states that she has been having fevers in the afternoon. She states that her temperature was 100.5 axillary yesterday. She continues to have pelvic pain that she describes as a pinching sensation. Present Details Date of Last Menstrual Period: 06/30/20 Calculated Date of Delivery: 04/06/21 Gestational Age Based on Last Menstrual Period: 9 Review of Systems General: Reports: 10 or more systems reviewed and unremarkable except in HPI and below Const: Denies: fever(s), chills or body aches Eyes: Denies: change in vision or blurry vision ENMT: Denies: throat pain or nasal congestion Card: Denies: chest pain or dyspnea on exertion Resp: Denies: dyspnea, productive cough or non-productive cough GI: Denies: abdominal pain, nausea or vomiting : Reports: vaginal bleeding (spotting today), vaginal discharge and pelvic pain; Denies: flank pain, dysuria or genital lesions Musc: Denies: extremity pain Skin/Breast: Denies: rash Neuro: Denies: headache(s) Psych: Denies: anxiety or depression Carlo/Lymph: Denies: easy bruising Medications/Allergies Home Medications Medication Instructions Recorded Confirmed Last Taken Type oxycodone-acetaminophen [Percocet] 1 tab PO Q6H PRN #10 tab 08/26/20 09/03/20 Unknown Rx Allergies Allergy/AdvReac Type Severity Reaction Status Date / Time morphine Allergy ALGY-Hives Verified 09/03/20 08:57 PFSH FLY RAISER LOCKSTITCH PFSH: Family History Grandmother Clotting disorder maternal Diabetes maternal Father Stroke Family/Other Breast cancer maternal aunt Denies family history of Colon cancer Ovarian cancer Heart disease Hyperlipidemia Anesthesia complication Bleeding disorder Hypertension Uterine cancer Thyroid condition Social History (Updated 09/03/20 @ 08:58 by Mavis Farnsworth RN) Smoking and tobacco status: never smoked Alcohol intake: former Former alcohol use details: prior to Other Female Reproductive History: Hx Age of Menarche: 14 Duration of menses: 3-5 days Date of Last Menstrual Period: 06/24/20 Cycle Length: regular, monthly Menstrual flow: normal/abnormal: normal History History History 3 Term 1 Miscarriages/Ectopic 1 1 Living Children 2 Vitals/I&O/Wt Last Vital Signs Temp 98.5 F 09/04/20 07:48 Pulse 69 09/04/20 07:48 Resp 14 09/04/20 07:48 BP 90/57 09/04/20 07:48 Pulse Ox 99 09/04/20 07:48 09/03/20 09/04/20 09/04/20 22:59 06:59 14:59 Intake Total 253.25 / 406.25 855.333 / 1261.583 379.167 / 379.167 Balance 253.25 / 406.25 855.333 / 1261.583 379.167 / 379.167 Weight last 48 hrs Weight 76.204 kg Physical Exam Const: COMMON NORMALS: no acute distress, patient oriented x3, alert and well nourished GENERAL APPEARANCE: well kempt HENMT: COMMON NORMALS: normocephalic and atraumatic HEAD & SCALP: normocephalic and atraumatic Neck/C-Spine: COMMON NORMALS: full ROM and Thyroid normal THYROID: Thyroid normal Lymph: LYMPHATIC: no lymphadenopathy noted Chest: CHEST: Yes Symmetrical chest wall rise Resp: COMMON NORMALS: normal respiratory effort Cardio: COMMON NORMALS: regular rate and regular rhythm RATE: regular rate RHYTHM: regular rhythm GI: COMMON NORMALS: Soft to palpation INSPECTION: Yes normal to inspection PALPATION: Yes Soft to palpation, No Tenderness to palpation present (GI), No Guarding due to palpation present (GI) and No Rebound tenderness present PERCUSSION: normal to percussion : COMMON NORMALS: No no CVA tenderness and Yes normal bimanual exam BLADDER/KIDNEY EXAM: No no CVA tenderness EXTERNAL FEMALE EXAM: Yes normal appearance of the urethra SPECULUM EXAM - VAGINA: No laceration, No lesion, No vaginal bleeding, No tenderness and No Vaginal discharge present SPECULUM EXAM - CERVIX: Yes Cervical os closed, No Cervical bleeding and No Cervical tenderness present BIMANUAL EXAM - VAGINA & UTERUS: Yes normal bimanual exam, Yes normal palpation, Yes normal palpation, Yes cervical motion tenderness, Yes Cervical tenderness present, Yes uterine size normal, Yes uterine shape normal and Yes Uterine tenderness bilaterally BIMANUAL EXAM - ADNEXA, OTHER: Yes normal adnexae, Yes tender on the left and No Adnexal mass present OB/EXTERNAL & SPECULUM: No vaginal bleeding Back/Pelvis: COMMON NORMALS: negative for no CVA tenderness LUMBAR SPINE/LOWER BACK: Yes normal to inspection and No pain with ROM PELVIS: Yes no pain with anterior-posterior compression, Yes no pain with lateral compression and No tenderness over symphysis pubis Extremity: GENERAL: Yes normal exam except as noted, No calf tenderness and No cyanosis Neuro: COMMON NORMALS: patient oriented x3 SENSORIUM/ORIENTATION: Yes alert SPEECH: speech normal Psych: COMMON NORMALS: mental status grossly normal, Normal thought process present, cooperative, normal affect and speech normal APPEARANCE: Yes grossly normal and Yes well kempt ATTITUDE: Yes calm ACTIVITY/MOTOR BEHAVIOR: Yes appropriate eye contact SPEECH: Yes normal speech MOOD & AFFECT: Yes euthymic mood THOUGHT PROCESS: Normal thought process present ATTENTI ON/CONCENTRATION: Yes attention grossly intact Skin: COMMON NORMALS: no rashes or lesions noted GENERAL SKIN EXAM: no rashes or lesions noted Data : 09/03/20 12:04 09/03/20 15:00 Micro: Microbiology 09/03/20 12:04 Blood Culture - Preliminary Blood SPECIMEN COLLECTED A&P Assessment and plan (1) Endometritis following abortive : Patient was counseled regarding suspected endometritis and is inflammation of the inner lining of the uterus (endometrium). Symptoms may include fever, lower abdominal pain, and abnormal vaginal bleeding or discharge. It is the most common cause of infection after miscarriage or childbirth. The preferred treatment is IV antibiotics for 24-48 hours. Patient was counseled regarding treatment and admission to hospital for IV therapy. Status: Acute Attestations Medical Necessity Statement*: In my professional opinion per admitting diagnosis Coding Level of Care Code Acute Cut Out Stitcher for [facility] Fwd Exam Comprehensive Diagnoses Endometritis following abortive O03.5
[2020-09-04 11:36] VITALS: BP 105/65; PULSE 70; RESP 16; TEMP 36.9; O2SAT 98
[2020-09-04 15:14] LABS: Gentamicin Peak 5.8 ug/mL (2.0-8.0)
[2020-09-04 15:35] VITALS: BP 106/67; PULSE 69; RESP 15; TEMP 36.9; O2SAT 99
[2020-09-04 19:30] VITALS: BP 109/71; PULSE 87; RESP 16; TEMP 36.9; O2SAT 99
[2020-09-04 21:06] LABS: Gentamicin Trough 0.7 ug/mL (0.0-8.0)
[2020-09-04 22:51] VITALS: BP 93/62; PULSE 77; RESP 16; TEMP 36.9; O2SAT 96
[2020-09-05] VITALS (15 sets, daily range): BP systolic 92–138; BP diastolic 57–78; PULSE 68–115; RESP 16–18; TEMP 36.7–37; O2SAT 93–100
[2020-09-05] MEDS: ampicillin 2,000 MG in sodium chloride 0.9% (plus) 50 ML 100 MG IV ×3 (00:49→15:20)
[2020-09-05] MEDS: clindamycin 900 MG/50 ML PREMIX 100 MG IV ×2 (03:37→12:02)
[2020-09-05] MEDS: sodium chloride 0.9% 1,000 ML 125 ML IV (04:57)
--- NOTE | 2020-09-05 08:22 | P.DS_ITS ---
Discharge Providers MANUFACTURING MANAGER Date of Admission: 09/03/20 10:36 Date of Discharge: 09/18/20 Attending Provider at Admission: Ernesto Leung MD Attending Provider at Discharge: Ernesto Leung MD Primary Care Provider: Erensto Leung MD Diagnoses at Discharge Discharge Diagnosis (1) Endometritis following abortive : Status: Acute Reason for Visit Reason for Visit: ENDOMETRIOSIS Hospital Course Hospital Course 25-year-old female status post spontaneous , admitted for suspected endometritis. CT IV antibiotics she has been afebrile for 48 hours. Hemodynamically stable. Some vaginal spotting. the vaginal bleeding has stopped but resume. A transvaginal ultrasound was repeated and confirmed retained products conception, a D&C was recommended and was performed without complications. Physical Exam Narrative: EXAM NARRATIVE: GA; alert and oriented x 3 HEENT: normal Breasts: engorged Nipples - skin intact Lungs; clear to auscultation Heart: regular rhythm, no murmurs. Abd: Appropriately tender. BS+. Uterine fundus below umbilicus. No Fundal Tenderness. Perineum: normal lochia. Extremities: no edema, no cyanosis, no tenderness. Discharge Data Data Completed and Pending: Laboratory Tests 09/03/20 09/03/20 09/05/20 08:28 12:04 08:57 WBC 8.0 Hgb 11.9 Hct 38.0 Plt Count 329 Ser , Coco i-Qnt 3179.00 1883.00 Pending at discharge Category Date Time Status Blood Culture [place] [facility] 09/03/20 10:59 Results HCG Quantitative Stat Lab 09/05/20 08:22 Ordered Labs from last 24 hours 09/04/20 09/04/20 20:35 14:30 Gentamicin Peak 5.8 Gentamicin Trough 0.7 Imaging^: US: Radiologist's impression: Findings consistent with retained products of conception redemonstrated. Vitals: Last Vital Signs Temp 98.5 F 09/05/20 07:33 Pulse 70 09/05/20 07:33 Resp 18 09/05/20 07:33 BP 93/60 09/05/20 07:33 Pulse Ox 99 09/05/20 07:33 Discharge Plan Discharge Patient Disposition: Home Condition: Stable Prescriptions: New ibuprofen 800 mg tablet 800 mg PO TID PRN (Reason: pain) Qty: 60 RF: 0 ferrous sulfate 325 mg (65 mg iron) tablet 325 mg PO BID Qty: 60 RF: 0 acetaminophen 325 mg capsule 325 mg PO Q4H PRN (Reason: fever or pain) Qty: 60 RF: 0 Continued Percocet 7.5-325 mg tablet 1 tab PO Q6H PRN (Reason: pain) Qty: 10 RF: 0 No Action metronidazole [Flagyl] 500 mg tablet 500 mg PO BID 14 Days Qty: 28 RF: 0 Discharge Orders: Discharge Order (Routine); Ordered 09/05/20 Ordered By: Ernesto Leung Referrals: Ernesto Leung MD [Primary Care Provider] - 4-7 days (* Call [facility] first thing Wednesday morning to make your follow up appointment. Your appointment needs to occur one day next week in between 09/09/2020 to 09/13/2020.) Discharge Diet: Regular Discharge Activity: Increase activity as tolerated Patient Instructions: Endometriosis (DC), OB Discharge Report, OB Food/Drug Interaction Guide Activity Restrictions/Additional Instructions: 1. Please call [facility] [place] [facility] on next working day to make your follow-up appointment in 2 weeks. 2. Please stay home until you come back to the clinic on first post-operative check up. 3. Please follow instructions on your medications CAREFULLY. 4. If you have abdominal incision, do not cover it unless dressing is necessary because of drainage. OK to shower, but avoid bath. Leave steri-strips until they fall off. If they are still on one week after surgery, you may remove them. 5. If you had vaginal surgery, your doctor may instruct you to take SITZ bath. 6. Yellow, blood tinged odorous vaginal discharge is usually normal after hysterectomy or vaginal surgeries. 7. No sexual intercourse, tampons, or douches until you are completely released from the post-operative care or 6 weeks. 8. Avoid constipation by eating right and maybe using some Metamucil or Milk of Magnesia. 9. All prescription refills are given during the working hours. Please do no wait till it runs out. Call the clinic at [phone] before your medication runs out. The clinic will get in touch with your doctor to prescribe medicat ions if necessary. 10. Please remain within 40 mile radius from our hospital because emergencies do happen now and then during the post-operative period. 11. If you have stairs at home, take one step at a time slowly and minimize the number of trips. It helps to stay in one floor for the next few days. No lifting except what you can lift by one hand until you are released from the post-operative care. 12. Driving is discouraged until you are well healed. It may be 3-4 weeks before you feel strong enough to drive. You should be able to turn and look through the rear window without pain and you should be able to push the brake pedal very hard without pain before you drive. No fast rules, but SAFETY should be your primary concern. DO NOT drive if you are on sedating medications such as narcotics. 13. Call the clinic (during working hours) to make urgent appointment or go to the Emergency room, if any of the following occurs: i. Vaginal bleeding becomes heavy, more than a period. ii. Incision becomes red and sore, or drains pus. iii. Your temperature is over 100.4 or you have chill. iv. IV site becomes red and swollen (a little ``knot?? is usually OK) v. Persistent nausea and vomiting vi. Persistent constipation or diarrhea vii. Rash or allergic reaction to medications. Discharge Attestations MANUFACTURING MANAGER Time Spent in Discharge Care*: greater than 30 min Coding Level of Care Code Acute Alarm Security Or Surveillance Monitor for [facility] Diagnoses Endometritis following abortive O03.5
--- NOTE | 2020-09-05 09:36 | USR_ITS ---
PROCEDURE INFORMATION: Exam: US Pelvis, Transvaginal Exam date and time: 09/05/2020 10:03 AM Age: 25 years old Clinical indication: Other: Retained products of conception; Additional info: Possible retained products of conception TECHNIQUE: Imaging protocol: Real-time transvaginal pelvic ultrasound with image documentation. Transvaginal imaging was used for better evaluation of the endometrium, adnexa, and/or cervix. COMPARISON: US pelvic with transvaginal 08/30/2020 10:53 PM FINDINGS: Uterus/cervix: Uterus 8.9 x 4.8 x 5.9 cm. Heterogeneous material in the upper endometrial cavity with color Doppler hypervascularity (increased vascularity compared to prior study), measuring up 2.0 cm AP dimension. Right adnexa: Right ovary 3.0 x 1.4 x 3.2 cm. Normal color and pulsed Doppler. Left adnexa: Left ovary 3.5 x 1.9 x 3.3 cm. Left ovarian 1.7 mm physiologic follicle. Normal color and pulsed Doppler. Intraperitoneal space: None. US/US OB transvaginal [id number] IMPRESSION: Findings consistent with retained products of conception redemonstrated.
[2020-09-05] MEDS: acetaminophen 325 mg Tablet 650 MG PO (10:51)
--- NOTE | 2020-09-05 13:05 | P.ANESASSM_ITS ---
Pre-Anesthetic Assessment Pre-Anesthetic Assessment: Height/Weight: Height 1.55 m Weight 76.204 kg Temp Pulse Resp BP Pulse Ox 98.4 F 74 18 93/61 99 09/05/20 10:46 09/05/20 10:46 09/05/20 10:46 09/05/20 10:46 09/05/20 10:46 Preop Diagnosis: Endometritis Proposed Procedure: Operation Date: 09/05/20 18:00 Proposed Procedures p Dilation And Curettage (D&C)(Not Applicable) - Ernesto Leung MD Familial anesthetic complications: None Was Beta Roberto taken within 24 hours: N/A Last intake: water will pills at 1030, two bites of bread at 0800 with apple juice Social: Social History: No alcohol and No tobacco Exam: Pre-Anes Outpt Exam: alert, oriented x 3, clear to auscultation bilaterally and regular rate & rhythm Airway: Cervical ROM: WNL MP: 3 Dentition: Full Anesthetic Plan: ASA status: 1 Anesthesia: MAC Meds/Allergies Current Medications: Current Medications Generic Name Dose Route Start Last Admin Trade Name Freq PRN Reason Stop Dose Admin Acetaminophen 650 mg 09/03/20 13:50 09/05/20 10:51 Acetaminophen 32 5 Mg Tablet PO 650 mg Q6H PRN Administration MILD PAIN Clindamycin HCl/De xtrose 900 mg in 50 mls @ 100 mls/hr 09/03/20 11:00 09/05/20 12:32 Cleocin IV Infused Q8H FREDERIC Infusion Protocol Ampicillin Sodium 2,000 mg/ 50 mls @ 100 mls/ hr 09/03/20 11:00 09/05/20 07:53 Sodium Chloride IV Infused Q6H FREDERIC Infusion Protocol Gentamicin Sulfate 130 mg/ 103.25 mls @ 103. 25 mls/hr 09/03/20 20:00 09/05/20 05:59 Sodium Chloride IV Infused Q8H FREDERIC Infusion Sodium Chloride 1,000 mls @ 125 m ls/hr 09/03/20 14:00 09/05/20 10:55 Sodium Chloride 0.9% IV 125 mls/hr .Q8H FREDERIC Infusion PFSH Anesthesia PFSH: Family History Grandmother Clotting disorder maternal Diabetes maternal Father Stroke Family/Other Breast cancer maternal aunt Denies family history of Colon cancer Ovarian cancer Heart disease Hyperlipidemia Anesthesia complication Bleeding disorder Hypertension Uterine cancer Thyroid condition Social History (Updated 09/03/20 @ 08:58 by Mavis Farnsworth RN) Smoking and tobacco status: never smoked Alcohol intake: former Former alcohol use details: prior to Female Reproductive History: Date of last menstrual period: 06/30/20 Data Anesthesia CBC & Chem 7: 09/03/20 12:04 09/03/20 15:00 Other Labs: Laboratory Results - last 48 hr 09/03/20 09/04/20 09/04/20 15:00 14:30 20:35 Sodium 140 Potassium 3.6 Chloride 103 Carbon Dioxide 28 Anion Gap 12.6 BUN 8 Creatinine 0.5 GFR Calculation 152.9 H Glucose 102 Calculated Osmolality 289 Calcium 9.0 C-React Prot High Sens 0.150 Ser , Semi-Qnt Gentamicin Peak 5.8 Gentamicin Trough 0.7 09/05/20 08:57 Sodium Potassium Chloride Carbon Dioxide Anion Gap BUN Creatinine GFR Calculation Glucose Calculated Osmolality Calcium C-React Prot High Sens Ser , Semi-Qnt 1883.00 Gentamicin Peak Gentamicin Trough Micro: Microbiology 09/03/20 12:04 Blood Culture - Preliminary Blood NEGATIVE TO DATE Cardiac Studies: 2 No Data to Display
--- NOTE | 2020-09-05 13:40 | PC.NURSE ---
Ampicillin pulled from [employer] and given to Gale TIPTON to administer when due at 1420.
--- NOTE | 2020-09-05 13:40 | PC.NURSE ---
Pt was taken by Gale TIPTON to surgery at 1340.
--- NOTE | 2020-09-05 13:45 | P.PN_ITS ---
Subjective Subjective: Interval history: 25 y/o female s/p incomplete . Vitals/I&O/Wt Last Vital Signs Temp 98.6 F 09/05/20 13:30 Pulse 74 09/05/20 13:30 Resp 18 09/05/20 13:30 BP 111/70 09/05/20 13:30 Pulse Ox 99 09/05/20 13:30 09/04/20 09/05/20 09/05/20 22:59 06:59 14:59 Intake Total 1100 / 1682.417 306.50 / 1988.917 681.25 / 681.25 Balance 1100 / 1682.417 306.50 / 1988.917 681.25 / 681.25 Physical Exam Narrative: EXAM NARRATIVE: GA; alert and oriented x 3 HEENT: normal Breasts: engorged Nipples - skin intact Lungs; clear to auscultation Heart: regular rhythm, no murmurs. Abd: Appropriately tender. BS+. Uterine fundus below umbilicus. No Fundal Tenderness. Perineum: normal lochia. Extremities: no edema, no cyanosis, no tenderness. Data : 09/03/20 12:04 09/03/20 15:00 Micro: Microbiology 09/03/20 12:04 Blood Culture - Preliminary Blood NEGATIVE TO DATE US: My impression: Retained products of conception redemonstrated. Radiologist's impression: [address] [address] Ultrasound Report Signed Patient: Maria Eugenia Parkinson #: [id number] : 1995Acct#:[id number] Age/Sex: 25 M Date: 09/03/20 Loc: OBGYNRoo/Bed: [facility] Attending Dr: Ernesto Leung MD Ordering Provider/Ordering MD: Ernesto Leung MD Date of Service: 09/05/20 Procedure(s): US OB transvaginal [id number] Accession Number(s): [id number] Report Number: [id number] PROCEDURE INFORMATION: Exam: US Pelvis, Transvaginal Exam date and time: 09/05/2020 10:03 AM Age: 25 years old Clinical indication: Other: Retained products of conception; Additional info: Possible retained products of conception TECHNIQUE: Imaging protocol: Real-time transvaginal pelvic ultrasound with image documentation. Transvaginal imaging was used for better evaluation of the endometrium, adnexa, and/or cervix. COMPARISON: US pelvic with transvaginal 08/30/2020 10:53 PM FINDINGS: Uterus/cervix: Uterus 8.9 x 4.8 x 5.9 cm. Heterogeneous material in the upper endometrial cavity with color Doppler hypervascularity (increased vascularity compared to prior study), measuring up 2.0 cm AP dimension. Right adnexa: Right ovary 3.0 x 1.4 x 3.2 cm. Normal color and pulsed Doppler. Left adnexa: Left ovary 3.5 x 1.9 x 3.3 cm. Left ovarian 1.7 mm physiologic follicle. Normal color and pulsed Doppler. Intraperitoneal space: None. US/US OB transvaginal [id number] IMPRESSION: Findings consistent with retained products of conception redemonstrated. A&P Assessment and plan (1) Incomplete complicated by genital tract and pelvic infection: patient admitted for suspected endometritis. She received IV antibiotics for 48 hours and she has been afebrile hemodynamically stable. Resume bleeding transvaginal ultrasound was ordered and confirmed retained product conception. she was counseled regarding ultrasound findings, and was advised for dilation and curettage. The patient was informed of the risks and benefits of the procedure. Risks included but were not limited to bleeding, infection, injury to the vulva, vagina, or cervix, and uterine perforation. The patient was counseled on the potential need for laparoscopy or laparotomy if uterine perforation were to occur. The patient expressed understanding of the risks involved, all questions were answered, and the patient consented to the procedure and signed informed consent. Status: Acute (2) Endometritis following abortive : Patient is status post spontaneous AB with pelvic pain and fever on admission. Status: Acute Attestations Medical Necessity Statement*: in my professional opinion per admitting diagnosis Coding Level of Care Code Acute Waste Minimization Technician for [facility] Fwd Diagnoses Incomplete complicated by genital tract and pelvic infection O03.0 Endometritis following abortive O03.5
--- NOTE | 2020-09-05 15:37 | PM.OP ---
Operative Report Date of procedure: September 05, 2020 Pre-op Diagnosis: Endometritis, retained products of conception Post-op diagnosis: same Post-op Findings: Product of conception Procedure Done: Suction dilation and curettage Specimens removed/disposition: Products of conception Surgeon: Ernesto Leung MD Anesthesia: MAC Estimated blood loss (mL): 20 IV fluids (mL): 400 Condition: stable Disposition: PACU Brief History: 25-year-old female status post AB admitted for suspected endometritis, transvaginal ultrasound showed retained products of conception. Procedure: After informed consent, the patient was taken to the Operating Room where general anesthesia was administered. The patient was examined under anesthesia and found to have a normal uterus with normal adnexa. She was placed in the dorsal lithotomy position and prepped and draped in sterile fashion. A sterile weighted speculum was placed in the patient?s vagina. A single-tooth tenaculum was then applied to the cervix. The uterus was then gently sounded to 12 cm and a suction curette was advanced gently to the uterine fundus and product of conception emptied. A sharp curettage was then performed until a gritty texture was noted. There was minimal bleeding noted and the tenaculum was removed with good hemostasis noted. The patient tolerated the procedure well. The patient was taken to the recovery area in stable condition.
--- NOTE | 2020-09-05 15:54 | SUR.PHASEI ---
PT AWAKE ALERT SHIVERING WITH GOOD RESP NOTED ON RA, ABD SOFT WITH SARAHY PAD IN PLACE D/I SCDS ON, IV PATENT , PT GIVEN WARM BLANKETS AND SHIVERING BETTER.
--- NOTE | 2020-09-05 16:00 | ANE.PACU2 ---
Inpatient post-anesthesia follow up: Airway intact: Yes Vital signs: Temperature 98.4 F Pulse Rate 115 Respiratory Rate 17 Blood Pressure 100/68 Pulse Oximetry 98 Oxygen Delivery Me thod Room Air Oxygen Flow Rate Fraction of Inspir ed Oxygen Hydration adequate: Yes Nausea and vomiting: No Pain level: 2 Mental status: Baseline
--- NOTE | 2020-09-05 16:29 | SUR.PHASEI ---
1610 PT TO OB SLEEPY BUT MOVES SELF TO BED ABD SOFT SARAHY PAD D/I WARM BLANKETS X 3 TO PT , PT SHIVERING AGAIN FROM MOVING, BUT QUICKLY RELAXES WITH NO SHIVERING, PT C/O OF CRAMPING PAIN TO ABD. NURSE TO CHECK ON PAIN MED PT GIVEN ICE CHIPS.
[2020-09-05] MEDS: HYDROcodone-acetaminophen 5-325 mg Tablet PO (16:41)
[2020-09-05] MEDS: ketorolac 30 mg/mL INJ IVP (16:41)
[2020-09-05] MEDS: ondansetron 2 mg/ML SDV 2 mL 4 MG IVP (16:48)
== END 2020-09-05 17:42 | disposition home or self-care (01) | DRG 770 ==
PROVIDERS: Admitting Provider Obstetrics & Gynecology; PCP Obstetrics & Gynecology; Visit Provider Obstetrics & Gynecology
PROC: 10D17ZZ Extraction of Products of Conception, Retained, Via Natural or Artificial Opening (ICD-10-PCS; CPT 58120; principal; 2020-09-05 18:00)
DX: O03.0 Genital tract and pelvic infection following incomplete spontaneous abortion (principal)
CPT/HCPCS: 12345; 36415; 76817; 80048; 80170; 81003; 84702; 85025; 86141; 87040; 88305; 96375; J0290; J1580; J1885; J2250; J2405; J2704; J3010; J3490; J7030

== ENCOUNTER → 2021-02-19 14:01 | Outpatient (BNVA) | payer MEDICAID, SELFPAY | PROVIDERS: PCP Obstetrics & Gynecology; Visit Provider Nurse Practitioner | DX: J98.8 Other specified respiratory disorders (principal); Z20.822 Contact with and (suspected) exposure to COVID-19; J06.9 Acute upper respiratory infection, unspecified | CPT/HCPCS: 87635 ==

== ENCOUNTER 2021-02-20 05:02 | Emergency (ER) | payer MEDICAID, SELFPAY ==
--- NOTE | 2021-02-20 05:10 | XRR_ITS ---
PROCEDURE INFORMATION: Exam: XR Chest Exam date and time: 02/20/2021 5:11 AM Age: 25 years old Clinical indication: Cough and shortness of breath; Patient HX: Cough with SOB. TECHNIQUE: Imaging protocol: XR of the chest. Views: 1 view. COMPARISON: CT Chest/Abdomen/Pelvis w IV* 05/30/2019 10:15 AM FINDINGS: Lungs: Unremarkable. No consolidation. Pleural spaces: Unremarkable. No pleural effusion. No pneumothorax. Heart/Mediastinum: Unremarkable. No cardiomegaly. Bones/joints: Unremarkable. XR/XR chest 1V portable [id number] IMPRESSION: No acute findings.
[2021-02-20 05:16] VITALS: BP 127/87; PULSE 84; RESP 15; TEMP 37.1; O2SAT 99; BMI 27.3
--- NOTE | 2021-02-20 05:20 | ED_ITS ---
HPI - URI/Sore Throat General: Chief Complaint: COVID symptoms Stated Complaint: covid symptoms Time Seen by Provider: 02/20/21 05:10 Source: patient Mode of arrival: ambulatory Limitations: no limitations History of Present Illness: HPI Narrative: 25-year-old female who states that over the last 4 to 5 days she has been having nasal congestion some sinus pain slight cough and body aches. States she been having weakness. States she was concerned she had a sinus infection went to her PCP yesterday and had a Covid swab. Results still are not back. She states that she just felt worse today. She is afebrile here. She denies any shortness of breath. She is in no distress. Associated symptoms: Reports chills; Deny abdominal pain, chest pain, diarrhea, nausea or vomiting Review of Systems Const: Reports: chills and body aches Eyes: Denies: blurry vision or eye discomfort ENMT: Denies: throat pain or dental pain Card: Denies: chest pain Resp: Reports: non-productive cough GI: Denies: abdominal pain, nausea, vomiting or diarrhea : Denies: dysuria Musc: Denies: neck pain or back pain Skin/Breast: Denies: rash Neuro: Reports: weakness in extremities Psych: Denies: depression Carlo/Lymph: Denies: easy bruising All/Imm: Denies: urticaria PFSH ED PFSH: Medical History Bleeding in early Surgical History H/O dilation and curettage 09/05/2020- suction D&C performed by Dr. Leung at [facility] No history of previous surgery Family History Grandmother Clotting disorder maternal Diabetes maternal Father Stroke Family/Other Breast cancer maternal aunt Denies family history of Colon cancer Ovarian cancer Heart disease Hyperlipidemia Anesthesia complication Bleeding disorder Hypertension Uterine cancer Thyroid condition Social History Smoking and tobacco status: never smoked Second hand smoke exposure: No Smoking risk assessment/counseling performed?: No Alcohol intake: former Former alcohol use details: prior to Desire information about alcohol rehabilitation?: No Counseling given: No Desire information about substance/drug rehabilitation?: No Counseling given: No Adopted: No Caregiver/support person: No Lives independently: Yes Household members: spouse Housing: House Marital status: Number of children: 2 service: No Current occupational status: employed Current occupation: [employer] Pets and animals: No History of recent travel: No Leisure activites: exercise Current gender identity: Female Female Reproductive History: Date of last menstrual period: 01/26/21 Physical Exam Const: COMMON NORMALS: no acute distress, patient oriented x3 and healthy appearing HENMT: COMMON NORMALS: normocephalic and atraumatic HEAD & SCALP: normocephalic and atraumatic Eye: COMMON NORMALS: Equal, round and reactive pupils present and EOMs intact bilaterally PUPIL: Yes Equal, round and reactive pupils present Neck/C-Spine: COMMON NORMALS: full ROM and supple Chest: COMMONS NORMALS: normal inspection of the chest and normal palpation of entire chest wall Resp: COMMON NORMALS: normal respiratory effort, No retractions, No use of accessory muscles and clear to auscultation bilaterally AUSCULTATION: clear to auscultation bilaterally Cardio: COMMON NORMALS: regular rate, regular rhythm and No murmurs present (Cardio) RATE: regular rate RHYTHM: regular rhythm GI: COMMON NORMALS: Normal to inspection, nondistended, normoactive bowel sounds present, Soft to palpation, non-tender and no masses PALPATION: Yes Soft to palpation Extremity: COMMON NORMALS: normal to inspection and full ROM Neuro: COMMON NORMALS: patient oriented x3, moves all extremities and no focal motor deficits Psych: COMMON NORMALS: mental status grossly normal, Normal thought process present and cooperative THOUGHT PROCESS: Normal thought process present Skin: COMMON NORMALS: no rashes or lesions noted and no wounds GENERAL SKIN EXAM: no rashes or lesions noted Course Vital Signs: Vital signs: Vital Signs Temperature 98.8 F 02/20/21 05:16 Pulse Rate 84 02/20/21 05:16 Respiratory Rate 15 02/20/21 05:16 Blood Pressure 127/87 02/20/21 05:16 Pulse Oximetry 99 02/20/21 05:26 MDM - URI/Sore Throat MDM Narrative: Medical decision making narrative: Peyton presents here with upper respiratory infection and possible sinus infection. She did have a Covid swab yesterday that is still pending. X-ray here is normal. She is in no distress and afebrile. Patient given Decadron and Toradol in the ER. Did prescribe her Augmentin informed her that if her Covid comes back negative she is to take the Augmentin. She is to follow-up with PCP and return if worsening. Imaging Data^: CXR: My impression: No acute normality Discharge Plan Discharge Patient Disposition: Home Clinical Impression: Upper respiratory infection Qualifiers: URI type: unspecified URI Qualified Code(s): J06.9 - Acute upper respiratory infection, unspecified Condition: Stable Prescriptions: New Naprosyn 500 mg tablet 500 mg PO BID PRN (Reason: pain) Qty: 20 RF: 0 Augmentin 875-125 mg tablet 1 tab PO BID Qty: 14 RF: 0 No Action promethazine-DM 6.25-15 mg/5 mL syrup 5 ml PO Q6H PRN (Reason: cough) Qty: 118 RF: 0 Discharge Orders: Discharge ED (Routine); Ordered 02/20/21 Ordered By: Qi Darling Referrals: Ernesto Leung MD [Primary Care Provider] - Discharge Diet: Advance as tolerated Discharge Activity: Resume usual activity Patient Instructions: Upper Respiratory Infection (ED) Coding Level of Care Code ED Straw Hat Brusher for Evan Fwd Exam Comprehensive
[2021-02-20 05:26] VITALS: O2SAT 99
[2021-02-20] MEDS: ketorolac 30 mg/mL INJ IM (05:49)
[2021-02-20] MEDS: dexamethasone 10 mg/mL INJ IM (05:50)
[2021-02-20] MEDS: ondansetron 4 MG Tablet PO (05:53)
[2021-02-20 05:56] VITALS: BP 127/87; PULSE 68; RESP 15; TEMP 37.1; O2SAT 96
== END 2021-02-20 05:58 | disposition home or self-care (01) ==
PROVIDERS: Emergency Provider Emergency Medicine; PCP Obstetrics & Gynecology
DX: J06.9 Acute upper respiratory infection, unspecified (principal)
CPT/HCPCS: 71045; 96372; 99283; J1100; J1885; Q0162

== ENCOUNTER 2021-05-13 03:04 | Emergency (ER) | payer MEDICAID, SELFPAY ==
[2021-05-13 03:14] VITALS: BP 128/84; PULSE 89; RESP 16; TEMP 36.6; O2SAT 100; BMI 27.3
--- NOTE | 2021-05-13 03:15 | CTR_ITS ---
PROCEDURE INFORMATION: Exam: CT Abdomen And Pelvis With Contrast Exam date and time: 05/13/2021 3:15 AM Age: 26 years old Clinical indication: Nausea; Abdominal pain; Epigastric; Additional info: Abd pain TECHNIQUE: Imaging protocol: Computed tomography of the abdomen and pelvis with contrast. Radiation optimization: All CT scans at this facility use at least one of these dose optimization techniques: automated exposure control; mA and/or kV adjustment per patient size (includes targeted exams where dose is matched to clinical indication); or iterative reconstruction. Contrast material: OMNI 300; Contrast volume: 95 ml; Contrast route: INTRAVENOUS (IV); COMPARISON: CT Chest/Abdomen/Pelvis w IV* 05/30/2019 10:15 AM RADIATION DOSE METRICS: Total DLP (mGy-cm): 1029.43 FINDINGS: Lungs: The lung bases are clear. Liver: Unremarkable. Gallbladder and bile ducts: No visible gallstones or other definite gallbladder abnormality by CT. Ultrasound would be more sensitive for detecting gallstones, if clinically needed. No biliary tree dilation. Pancreas: Unremarkable. Spleen: Unremarkable. Adrenal glands: Unremarkable. Kidneys and ureters: No hydronephrosis of either kidney. No visible ureteral calculus. No perinephric fluid. The kidneys enhance homogeneously. Stomach and bowel: The stomach appears somewhat distended at the time of scanning. Please correlate clinically. There are no CT findings to strongly suggest diverticulitis. Appendix: The appendix is visualized and appears normal. Intraperitoneal space: No free air, generalized ascites, or bowel distention. Vasculature: No evidence for abdominal aortic aneurysm. Lymph nodes: No retroperitoneal adenopathy. Urinary bladder: Possibly some mild diffuse urinary bladder wall thickening. Evaluation is somewhat limited, as the bladder is not well distended. While nonspecific, this could indicate evidence for cystitis. Please correlate clinically. Reproductive: Very small amount of cul-de-sac fluid. No definite ovarian/adnexal cyst or mass by CT. Bones/joints: No significant acute finding. Soft tissues: Very small umbilical hernia, containing only fat. CT/CT abdomen pelvis w con* [id number] IMPRESSION: 1. Somewhat distended stomach. 2. No free air or bowel distention. No evidence for bowel obstruction. 3. Unremarkable gallbladder by CT. 4. Normal appendix 5. Possible mild urinary bladder wall thickening, see above. 6. No hydronephrosis of either kidney. No visible ureteral calculus. No perinephric fluid. 7. Very small amount of cul-de-sac fluid. No definite ovarian/adnexal cyst or mass by CT. 8. Other findings discussed above. Radiation Dose CTDIVOL = (mGy): DLP = 1029.43 (mGy-cm)
--- NOTE | 2021-05-13 03:15 | XRR_ITS ---
PROCEDURE INFORMATION: Exam: XR Chest Exam date and time: 05/13/2021 3:15 AM Age: 26 years old Clinical indication: Pain; Other: Epigastric; Additional info: Cp TECHNIQUE: Imaging protocol: XR of the chest. Views: 1 view. COMPARISON: CR XR chest 1V portable [id number] 02/20/2021 5:15 AM FINDINGS: Lungs: No CHF/pulmonary edema. Poor inspiration somewhat limits evaluation, especially of the lung bases. Visible lungs appear essentially clear. Pleural spaces: No visible pneumothorax. No definite pleural fluid. Heart/Mediastinum: Heart size is within normal limits. Bones/joints: No significant acute finding. XR/XR chest 1V portable [id number] IMPRESSION: 1. Essentially unremarkable single view chest. 2. Other findings discussed above.
[2021-05-13 03:17] VITALS: PULSE 88; RESP 10; O2SAT 98
--- NOTE | 2021-05-13 03:21 | W.ED.ABDPA2 ---
HPI - Abdominal Pain General: Chief Complaint: Abdominal Pain Stated Complaint: ABD PAIN, CHEST PAIN, N/V Time Seen by Provider: 05/13/21 03:11 Source: patient Mode of arrival: ambulatory Limitations: no limitations History of Present Illness: HPI narrative: 26-year-old female states she has been having epigastric abdominal pain that radiates to her chest along with right lower quadrant pain. States her pain is very sharp in nature going on over the last 2 days. She rates it an 8 out of 10. She has had nauseating and vomiting. She states the pain has been constant. She denies any worsening improving factors. She denies any fevers. Associated Symptoms: Reports nausea and vomiting; Denies chills, dysuria and fever(s) Related Data: Date of Last Menstrual Period: 05/11/21 Review of Systems Const: Denies: fever(s), chills, body aches or change in appetite Eyes: Denies: blurry vision or eye discomfort ENMT: Denies: throat pain or dental pain Card: Reports: chest pain Resp: Denies: dyspnea GI: Reports: abdominal pain, nausea and vomiting : Denies: dysuria Musc: Denies: neck pain or back pain Skin/Breast: Denies: rash Neuro: Denies: headache(s) Psych: Denies: depression Carlo/Lymph: Denies: easy bruising All/Imm: Denies: urticaria PFSH ED PFSH: Medical History Bleeding in early Surgical History H/O dilation and curettage 09/05/2020- suction D&C performed by Dr. Leung at [facility] No history of previous surgery Family History Grandmother Clotting disorder maternal Diabetes maternal Father Stroke Family/Other Breast cancer maternal aunt Denies family history of Colon cancer Ovarian cancer Heart disease Hyperlipidemia Anesthesia complication Bleeding disorder Hypertension Uterine cancer Thyroid condition Social History Smoking and tobacco status: never smoked Second hand smoke exposure: No Smoking risk assessment/counseling performed?: No Alcohol intake: former Former alcohol use details: prior to Desire information about alcohol rehabilitation?: No Counseling given: No Desire information about substance/drug rehabilitation?: No Counseling given: No Adopted: No Caregiver/support person: No Lives independently: Yes Household members: spouse Housing: House Marital status: Number of children: 2 service: No Current occupational status: employed Current occupation: [employer] Pets and animals: No History of recent travel: No Leisure activites: exercise Current gender identity: Female Female Reproductive History: Date of last menstrual period: 05/11/21 Physical Exam Const: COMMON NORMALS: no acute distress, patient oriented x3 and healthy appearing HENMT: COMMON NORMALS: normocephalic and atraumatic HEAD & SCALP: normocephalic and atraumatic Eye: COMMON NORMALS: Equal, round and reactive pupils present and EOMs intact bilaterally PUPIL: Yes Equal, round and reactive pupils present Neck/C-Spine: COMMON NORMALS: full ROM and supple Chest: COMMONS NORMALS: normal inspection of the chest and normal palpation of entire chest wall Resp: COMMON NORMALS: normal respiratory effort, No retractions, No use of accessory muscles and clear to auscultation bilaterally AUSCULTATION: clear to auscultation bilaterally Cardio: COMMON NORMALS: regular rate, regular rhythm and No murmurs present (Cardio) RATE: regular rate RHYTHM: regular rhythm GI: COMMON NORMALS: Normal to inspection, nondistended, normoactive bowel sounds present, Soft to palpation, non-tender and no masses PALPATION: Yes Soft to palpation and Yes Tenderness to palpation present (GI) Details: RLQ Extremity: COMMON NORMALS: normal to inspection and full ROM Neuro: COMMON NORMALS: patient oriented x3, moves all extremities and no focal motor deficits Psych: COMMON NORMALS: mental status grossly normal, Normal thought process present and cooperative THOUGHT PROCESS: Normal thought process present Skin: COMMON NORMALS: no rashes or lesions noted and no wounds GENERAL SKIN EXAM: no rashes or lesions noted Course Vital Signs: Vital signs: Vital Signs Temperature 97.8 F 05/13/21 03:14 Pulse Rate 88 05/13/21 03:17 Respiratory Rate 10 L 05/13/21 03:17 Blood Pressure 112/71 05/13/21 04:47 Pulse Oximetry 98 05/13/21 03:17 MDM - Abdominal Pain MDM Narrative: Medical decision making narrative: Patient presents here with vomiting along with abdominal and chest pain. Her chest pains atypical in her troponin here is negative. CT here shows no acute findings and her white count is normal. She feels much improved after Reglan. Will prescribe her Reglan for home and she is stable for dish Lab Data: Labs: Lab Results 05/13/21 05/13/21 05/13/21 Range/Units 03:22 03:22 03:22 WBC 9.3 (4.0-10.0) 10^3/ uL RBC 4.37 (4.1-5.3) 10^6/u L Hgb 12.8 (11.5-15.3) g/dL Hct 40.5 (37.0-47.0) % MCV 92.7 (81-99) fL MCH 29.3 (28.0-34.0) pg MCHC 31.6 (30.0-36.0) g/dL RDW 13.1 (12.1-15.1) % Plt Count 261 (130-400) 10^3/c mm MPV 9.7 (7.4-10.4) fL Neut % (Auto) 67.2 % Lymph % (Auto) 23.2 % Heard % (Auto) 6.9 % Eos % (Auto) 2.1 % Baso % (Auto) 0.3 % Neut # (Auto) 6.25 (1.8-7.7) 10^3/u L Lymph # (Auto) 2.2 (0.8-4.8) 10^3/u L Heard # (Auto) 0.6 (0.2-0.9) 10^3/u L Eos # (Auto) 0.2 (0.0-0.8) 10^3/u L Baso # (Auto) 0.0 (0.0-0.1) 10^3/u L Nucleated RBC % (a uto) 0 % Nucleated RBCs # 0.0 /100WBC Sodium 138 (136-145) mmol/L Potassium 3.5 (3.5-5.1) mmol/L Chloride 103 (98-107) mmol/L Carbon Dioxide 26 (22-29) mmol/L Anion Gap 12.5 (5-19) BUN 9 (6-20) mg/dL Creatinine 0.6 (0.5-0.9) mg/dL GFR Calculation 122.8 (90-130) mL/min Glucose 81 (65-115) mg/dL Calculated Osmolal ity 284 L (285-295) mOsm/k g Calcium 8.9 (8.5-10.5) mg/dL Total Bilirubin 0.4 (0.15-1.2) mg/dL AST 14 (0-32) U/L ALT 8 (0-33) U/L Alkaline Phosphata se 90 (35-105) IU/L Troponin T Baselin e 6 (0-10) ng/L Total Protein 6.4 L (6.6-8.7) g/dL Albumin 4.2 (3.5-5.2) g/dL Globulin 2.2 (1.3-4.6) g/dL Lipase 25 (13-60) U/L HCG, Qual (Negative) Urine Color (Yellow) Urine Appearance (CLEAR) Urine pH (5-7) Ur Specific Gravit y (1.005-1.030) Urine Protein (Negative) Urine Glucose (UA) (Normal) Urine Ketones (Negative) Urine Blood (Negative) Urine Nitrate (Negative) Urine Bilirubin (Negative) Urine Urobilinogen (Negative) mg/dL Ur Leukocyte Marcelle ase (Negative) Urine RBC (0-2) /hpf Urine WBC (0-5) /hpf Ur Squamous Epith Cells (0-5) /hpf Amorphous Sediment Urine Bacteria (NONE) /hpf 05/13/21 05/13/21 Range/Units 03:22 04:52 WBC (4.0-10.0) 10^3/ uL RBC (4.1-5.3) 10^6/u L Hgb (11.5-15.3) g/dL Hct (37.0-47.0) % MCV (81-99) fL MCH (28.0-34.0) pg MCHC (30.0-36.0) g/dL RDW (12.1-15.1) % Plt Count (130-400) 10^3/c mm MPV (7.4-10.4) fL Neut % (Auto) % Lymph % (Auto) % Heard % (Auto) % Eos % (Auto) % Baso % (Auto) % Neut # (Auto) (1.8-7.7) 10^3/u L Lymph # (Auto) (0.8-4.8) 10^3/u L Heard # (Auto) (0.2-0.9) 10^3/u L Eos # (Auto) (0.0-0.8) 10^3/u L Baso # (Auto) (0.0-0.1) 10^3/u L Nucleated RBC % (a uto) % Nucleated RBCs # /100WBC Sodium (136-145) mmol/L Potassium (3.5-5.1) mmol/L Chloride (98-107) mmol/L Carbon Dioxide (22-29) mmol/L Anion Gap (5-19) BUN (6-20) mg/dL Creatinine (0.5-0.9) mg/dL GFR Calculation (90-130) mL/min Glucose (65-115) mg/dL Calculated Osmolal ity (285-295) mOsm/k g Calcium (8.5-10.5) mg/dL Total Bilirubin (0.15-1.2) mg/dL AST (0-32) U/L ALT (0-33) U/L Alkaline Phosphata se (35-105) IU/L Troponin T Baselin e (0-10) ng/L Total Protein (6.6-8.7) g/dL Albumin (3.5-5.2) g/dL Globulin (1.3-4.6) g/dL Lipase (13-60) U/L HCG, Qual Negative (Negative) Urine Color Yellow (Yellow) Urine Appearance Clear (CLEAR) Urine pH 6.5 (5-7) Ur Specific Gravit y 1.010 (1.005-1.030) Urine Protein Neg (Negative) Urine Glucose (UA) Norm (Normal) Urine Ketones Negative (Negative) Urine Blood 2+ H (Negative) Urine Nitrate Negative (Negative) Urine Bilirubin Neg (Negative) Urine Urobilinogen Norm (Negative) mg/dL Ur Leukocyte Marcelle ase Negative (Negative) Urine RBC 5-10 H (0-2) /hpf Urine WBC 0-4 H (0-5) /hpf Ur Squamous Epith Cells 0-4 H (0-5) /hpf Amorphous Sediment Not Reportable Urine Bacteria Trace (NONE) /hpf Imaging Data ^: CT Abd/Pel: Attestation: I personally reviewed and interpreted this imaging study as follows: Radiologist's impression: [facility] [address] [place] [address] CT Scan Report Signed Patient: Maria Eugenia Parkinson Unit #: [id number] : 1995 Age/Sex: 26 / F ADM Date: 05/13/21 Loc: ER Room/Bed: Attending Dr: Ordering Provider/Ordering MD: Qi Darling MD Date of Service: 05/13/21 Procedure(s): CT abdomen pelvis w con* [id number] Accession Number(s): [id number] Report Number: [id number] PROCEDURE INFORMATION: Exam: CT Abdomen And Pelvis With Contrast Exam date and time: 05/13/2021 3:15 AM Age: 26 years old Clinical indication: Nausea; Abdominal pain; Epigastric; Additional info: Abd pain TECHNIQUE: Imaging protocol: Computed tomography of the abdomen and pelvis with contrast. Radiation optimization: All CT scans at this facility use at least one of these dose optimization techniques: automated exposure control; mA and/or kV adjustment per patient size (includes targeted exams where dose is matched to clinical indication); or iterative reconstruction. Contrast material: OMNI 300; Contrast volume: 95 ml; Contrast route: INTRAVENOUS (IV); COMPARISON: CT Chest/Abdomen/Pelvis w IV* 05/30/2019 10:15 AM RADIATION DOSE METRICS: Total DLP (mGy-cm): 1029.43 FINDINGS: Lungs: The lung bases are clear. Liver: Unremarkable. Gallbladder and bile ducts: No visible gallstones or other definite gallbladder abnormality by CT. Ultrasound would be more sensitive for detecting gallstones, if clinically needed. No biliary tree dilation. Pancreas: Unremarkable. Spleen: Unremarkable. Adrenal glands: Unremarkable. Kidneys and ureters: No hydronephrosis of either kidney. No visible ureteral calculus. No perinephric fluid. The kidneys enhance homogeneously. Stomach and bowel: The stomach appears somewhat distended at the time of scanning. Please correlate clinically. There are no CT findings to strongly suggest diverticulitis. Appendix: The appendix is visualized and appears normal. Intraperitoneal space: No free air, generalized ascites, or bowel distention. Vasculature: No evidence for abdominal aortic aneurysm. Lymph nodes: No retroperitoneal adenopathy. Urinary bladder: Possibly some mild diffuse urinary bladder wall thickening. Evaluation is somewhat limited, as the bladder is not well distended. While nonspecific, this could indicate evidence for cystitis. Please correlate clinically. Reproductive: Very small amount of cul-de-sac fluid. No definite ovarian/adnexal cyst or mass by CT. Bones/joints: No significant acute finding. Soft tissues: Very small umbilical hernia, containing only fat. CT/CT abdomen pelvis w con* [id number] IMPRESSION: 1. Somewhat distended stomach. 2. No free air or bowel distention. No evidence for bowel obstruction. 3. Unremarkable gallbladder by CT. 4. Normal appendix 5. Possible mild urinary bladder wall thickening, see above. 6. No hydronephrosis of either kidney. No visible ureteral calculus. No perinephric fluid. 7. Very small amount of cul-de-sac fluid. No definite ovarian/adnexal cyst or mass by CT. 8. Other findings discussed above. Radiation Dose CTDIVOL = (mGy): DLP = 1029.43 (mGy-cm) Dictated By: Peter Nguyen MD Signed By: Peter Nguyen MD Signed Date/Time: 05/13/21445 DD/ 3 CXR: Radiologist's impression: [address] [address] XRay Report Signed Patient: Maria Eugenia Parkinson Unit #: [id number] : 1995 Age/Sex: 26 / F ADM Date: 05/13/21 Loc: ER Room/Bed: Attending Dr: Ordering Provider/Ordering MD: Qi Darling MD Date of Service: 05/13/21 Procedure(s): XR chest 1V portable [id number] Accession Number(s): [id number] Report Number: [id number] PROCEDURE INFORMATION: Exam: XR Chest Exam date and time: 05/13/2021 3:15 AM Age: 26 years old Clinical indication: Pain; Other: Epigastric; Additional info: Cp TECHNIQUE: Imaging protocol: XR of the chest. Views: 1 view. COMPARISON: CR XR chest 1V portable [id number] 02/20/2021 5:15 AM FINDINGS: Lungs: No CHF/pulmonary edema. Poor inspiration somewhat limits evaluation, especially of the lung bases. Visible lungs appear essentially clear. Pleural spaces: No visible pneumothorax. No definite pleural fluid. Heart/Mediastinum: Heart size is within normal limits. Bones/joints: No significant acute finding. XR/XR chest 1V portable [id number] IMPRESSION: 1. Essentially unremarkable single view chest. 2. Other findings discussed above. Dictated By: Peter Nguyen MD Signed By: Peter Nguyen MD Signed Date/Time: 05/13/21447 DD/ 5 EKG Data ^: EKG 1: Attestation: I personally reviewed and interpreted this EKG as follows: EKG interpretation date: 05/13/21 EKG interpretation time: 03:14 Interpretation: nsr hr [address] or t wave abnormalities qrs 97 qtc 395 Discharge Plan Discharge Patient Disposition: Home Clinical Impression: Abdominal pain Qualifiers: Abdominal location: generalized Qualified Code(s): R10.84 - Generalized abdominal pain Chest pain Qualifiers: Chest pain type: unspecified Qualified Code(s): R07.9 - Chest pain, unspecified Condition: Stable Prescriptions: New metoclopramide HCl [Reglan] 10 mg tablet 10 mg PO Q6H PRN (Reason: nausea and vomiting) Qty: 20 RF: 0 No Action promethazine-DM 6.25-15 mg/5 mL syrup 5 ml PO Q6H PRN (Reason: cough) Qty: 118 RF: 0 Naprosyn 500 mg tablet 500 mg PO BID PRN (Reason: pain) Qty: 20 RF: 0 Augmentin 875-125 mg tablet 1 tab PO BID Qty: 14 RF: 0 Discharge Orders: Discharge ED (Routine); Ordered 05/13/21 Ordered By: Qi Darling Referrals: Ernesto Leung MD [Primary Care Provider] - Discharge Diet: Advance as tolerated Discharge Activity: Resume usual activity Patient Instructions: Acute Nausea and Vomiting (ED), Abdominal Pain (ED) Stand Alone Forms: Work/School Release Coding Level of Care Code ED Astronomy Instructor for Chg Fwd Exam Comprehensive
[2021-05-13] MEDS: ondansetron 2 mg/ML SDV 2 mL 4 MG IVP (03:26)
[2021-05-13] MEDS: HYDROmorphone 1 mg/mL INJ 1 mL IVP (03:26)
[2021-05-13] MEDS: sodium chloride 0.9% 1,000 ML 999 ML IV (03:26)
[2021-05-13 03:27] LABS: Basophils % 0.3 %; Eosinophils # 0.2 10^3/uL (0.0-0.8); Eosinophils % 2.1 %; Hematocrit 40.5 % (37.0-47.0); Hemoglobin 12.8 g/dL (11.5-15.3); Lymphocytes # 2.2 10^3/uL (0.8-4.8); Lymphocytes % 23.2 %; Mean Corpuscular HGB Conc 31.6 g/dL (30.0-36.0); Mean Corpuscular Hemoglobin 29.3 pg (28.0-34.0); Mean Corpuscular Volume 92.7 fL (81-99); Mean Platelet Volume 9.7 fL (7.4-10.4); Monocytes # 0.6 10^3/uL (0.2-0.9); Monocytes % 6.9 %; Neutrophils # 6.25 10^3/uL (1.8-7.7); Neutrophils % 67.2 %; Nucleated Red Blood Cells % 0 %; Platelet Count 261 10^3/cmm (130-400); Red Blood Count 4.37 10^6/uL (4.1-5.3); Red Cell Distribution Width 13.1 % (12.1-15.1); White Blood Count 9.3 10^3/uL (4.0-10.0)
[2021-05-13 03:44] LABS: Troponin(5th) Baseline 6 ng/L (0-10)
[2021-05-13 03:47] LABS: Alanine Aminotransferase 8 U/L (0-33); Albumin Level 4.2 g/dL (3.5-5.2); Alkaline Phosphatase 90 IU/L (35-105); Anion Gap 12.5 (5-19); Aspartate Amino Transferase 14 U/L (0-32); Blood Urea Nitrogen 9 mg/dL (6-20); Calcium 8.9 mg/dL (8.5-10.5); Carbon Dioxide 26 mmol/L (22-29); Chloride 103 mmol/L (98-107); Globulin 2.2 g/dL (1.3-4.6); Glomerular Filtration Rate 122.8 mL/min (90-130); Glucose 81 mg/dL (65-115); Lipase 25 U/L (13-60); Osmolality Calculated 284 mOsm/kg (285-295); Potassium 3.5 mmol/L (3.5-5.1); Sodium 138 mmol/L (136-145); Total Bilirubin 0.4 mg/dL (0.15-1.2); Total Protein 6.4 g/dL (6.6-8.7)
[2021-05-13 04:05] LABS: HCG, Serum Qual Negative (Negative)
[2021-05-13] MEDS: metoclopramide 5 mg/mL SDV 2 mL 10 MG IVP (04:10)
[2021-05-13] MEDS: diphenhydrAMINE 50 mg/mL SDV 1mL IVP (04:13)
[2021-05-13] MEDS: iohexol 300 mg/mL 100 mL Btl IV (04:23)
[2021-05-13 04:47] VITALS: BP 112/71
[2021-05-13 05:08] LABS: Add Urine Culture? No; Add Urine Microscopic? YES; Bacteria Urine TRACE /hpf; Bilirubin Urine Neg (Negative); Blood Urine 2+ (Negative); Glucose Urine UA Norm (Normal); Ketones Urine Negative (Negative); Leukocyte Esterase Urine Negative (Negative); Nitrate Urine Negative (Negative); Protein Urine Neg (Negative); Squamous Epithelial Cell Urine 0-4 /hpf (0-5); Urine Appearance Clear (CLEAR); Urine Color Yellow (Yellow); Urobilinogen Urine Norm (Negative); WBC Urine 0-4 /hpf (0-5); pH Urine 6.5 (5-7)
[2021-05-13 05:41] VITALS: BP 105/66; PULSE 66; RESP 14; O2SAT 100
== END 2021-05-13 05:43 | disposition home or self-care (01) ==
PROVIDERS: Emergency Provider Emergency Medicine; PCP Obstetrics & Gynecology
DX: R10.84 Generalized abdominal pain (principal); R07.9 Chest pain, unspecified
CPT/HCPCS: 71045; 74177; 80053; 81001; 83690; 84484; 84703; 85025; 96374; 96375; 99283; 99284; J1170; J1200; J2405; J2765; J7030; Q9967

== ENCOUNTER 2021-05-13 19:27 | Emergency (ER) | payer MEDICAID, SELFPAY ==
[2021-05-13 20:46] VITALS: BP 127/86; PULSE 94; RESP 18; TEMP 36.8; O2SAT 100; BMI 27.3
--- NOTE | 2021-05-13 20:51 | USR_ITS ---
PROCEDURE INFORMATION: Exam: US Abdomen, Limited; Right Upper Quadrant Exam date and time: 05/13/2021 8:51 PM Age: 26 years old Clinical indication: Abdominal pain; Acute; Additional info: Ruq pain TECHNIQUE: Imaging protocol: US abdomen. Real time ultrasound with image documentation. Limited exam focused on the right upper quadrant. COMPARISON: CT abdomen pelvis w con* [id number] 05/13/2021 4:19 AM FINDINGS: Liver: Normal. No masses. Gallbladder: Gallbladder is contracted. No evident shadowing stones. Common bile duct: Normal. No stones. No dilation. Pancreas: Visualized pancreas is unremarkable. Right kidney: Normal. No mass. No hydronephrosis. Stomach: Distended gas-filled stomach. US/US gall bladder [id number] IMPRESSION: 1. Contracted gallbladder, no evident gallstones. 2. Distended gas-filled stomach.
[2021-05-13 22:06] LABS: Basophils % 0.3 %; Eosinophils # 0.2 10^3/uL (0.0-0.8); Hematocrit 42.7 % (37.0-47.0); Hemoglobin 13.2 g/dL (11.5-15.3); Lymphocytes # 1.3 10^3/uL (0.8-4.8); Lymphocytes % 17.1 %; Mean Corpuscular HGB Conc 30.9 g/dL (30.0-36.0); Mean Corpuscular Hemoglobin 29.6 pg (28.0-34.0); Mean Corpuscular Volume 95.7 fL (81-99); Mean Platelet Volume 9.8 fL (7.4-10.4); Monocytes # 0.5 10^3/uL (0.2-0.9); Neutrophils # 5.54 10^3/uL (1.8-7.7); Neutrophils % 74.5 %; Nucleated Red Blood Cells % 0 %; Platelet Count 291 10^3/cmm (130-400); Red Blood Count 4.46 10^6/uL (4.1-5.3); Red Cell Distribution Width 13.1 % (12.1-15.1); White Blood Count 7.4 10^3/uL (4.0-10.0)
[2021-05-13 22:28] LABS: HCG, Serum Qual Negative (Negative)
[2021-05-13 22:36] LABS: Alanine Aminotransferase 8 U/L (0-33); Albumin Level 4.3 g/dL (3.5-5.2); Alkaline Phosphatase 97 IU/L (35-105); Aspartate Amino Transferase 15 U/L (0-32); Blood Urea Nitrogen 6 mg/dL (6-20); Calcium 8.7 mg/dL (8.5-10.5); Carbon Dioxide 22 mmol/L (22-29); Chloride 107 mmol/L (98-107); Creatinine Clr Calc Pharmacy 150.6071; Glomerular Filtration Rate 151.6 mL/min (90-130); Glucose 74 mg/dL (65-115); Lipase 32 U/L (13-60); Osmolality Calculated 284 mOsm/kg (285-295); Sodium 139 mmol/L (136-145); Total Bilirubin 0.3 mg/dL (0.15-1.2); Total Protein 6.3 g/dL (6.6-8.7)
--- NOTE | 2021-05-13 22:41 | CTR_ITS ---
PROCEDURE INFORMATION: Exam: CT Abdomen And Pelvis With Contrast Exam date and time: 05/13/2021 10:41 PM Age: 26 years old Clinical indication: Nausea; Abdominal pain; Generalized; Patient HX: Persistent abd pain with n/v/d. ; Additional info: Abdominal pain, vomiting TECHNIQUE: Imaging protocol: Computed tomography of the abdomen and pelvis with contrast. Radiation optimization: All CT scans at this facility use at least one of these dose optimization techniques: automated exposure control; mA and/or kV adjustment per patient size (includes targeted exams where dose is matched to clinical indication); or iterative reconstruction. Contrast material: OMNI 300; Contrast volume: 95 ml; Contrast route: INTRAVENOUS (IV); Other contrast: Oral, OMNI 300, 25 ML MIXED WITH 475 ML (16OZ) OF WATER.; COMPARISON: CT abdomen pelvis w con* [id number] 05/13/2021 4:19 AM RADIATION DOSE METRICS: Total DLP (mGy-cm): 977.74 FINDINGS: Liver: No mass. Gallbladder and bile ducts: No calcified stones. No ductal dilation. Pancreas: No ductal dilation. Spleen: No splenomegaly. Adrenal glands: Normal. No mass. Kidneys and ureters: No hydronephrosis. Stomach and bowel: No obstruction. No mucosal thickening. Appendix: No evidence of appendicitis. Intraperitoneal space: No free air. No significant fluid collection. Vasculature: No abdominal aortic aneurysm. Lymph nodes: No enlarged lymph nodes. Urinary bladder: Unremarkable as visualized. Reproductive: Unremarkable as visualized. Bones/joints: Unremarkable. No acute fracture. Soft tissues: Unremarkable. CT/CT abdomen pelvis w con* [id number] IMPRESSION: No acute findings. Radiation Dose CTDIVOL = (mGy): DLP = 977.74 (mGy-cm)
[2021-05-13 22:54] LABS: Lactate (Lactic Acid level) 0.3 mmol/L (0.5-2.2)
[2021-05-14 03:37] VITALS: BP 125/85; PULSE 83; RESP 17; TEMP 36.7; O2SAT 100
[2021-05-14] MEDS: ondansetron 2 mg/ML SDV 2 mL 4 MG IVP (03:52)
[2021-05-14] MEDS: sodium chloride 0.9% 1,000 ML 999 ML IV (03:52)
[2021-05-14] MEDS: HYDROmorphone 1 mg/mL INJ 1 mL IVP (03:52)
--- NOTE | 2021-05-14 03:52 | W.ED.ABDPA2 ---
Documented by User: Qi Darling MD 05/14/21 03:54 HPI - Abdominal Pain General: Chief Complaint: Abdominal Pain Stated Complaint: ABD PAIN/DIARRHEA Time Seen by Provider: 05/14/21 03:33 Source: patient Mode of arrival: ambulatory Limitations: no limitations History of Present Illness: HPI narrative: 26-year-old female seen here yesterday for vomiting along with abdominal pain. She had a CT scan showed no acute findings and normal lab work. Patient discharged home on Reglan. She states that today her vomiting is worsened and she had worse diffuse abdominal cramping. States she is unable to tolerate any p.o. She denies any fevers. Denies any diarrhea. Associated Symptoms: Reports nausea and vomiting; Denies chills, dysuria and fever(s) Related Data: Date of Last Menstrual Period: 05/13/21 Review of Systems Const: Denies: fever(s), chills, body aches or change in appetite Eyes: Denies: blurry vision or eye discomfort ENMT: Denies: throat pain or dental pain Card: Denies: chest pain Resp: Denies: dyspnea GI: Reports: abdominal pain, nausea and vomiting : Denies: dysuria Musc: Denies: neck pain or back pain Skin/Breast: Denies: rash Neuro: Denies: headache(s) Psych: Denies: depression Carlo/Lymph: Denies: easy bruising All/Imm: Denies: urticaria PFSH ED PFSH: Medical History Bleeding in early Surgical History H/O dilation and curettage 09/05/2020- suction D&C performed by Dr. Leung at [facility] No history of previous surgery Family History Grandmother Clotting disorder maternal Diabetes maternal Father Stroke Family/Other Breast cancer maternal aunt Denies family history of Colon cancer Ovarian cancer Heart disease Hyperlipidemia Anesthesia complication Bleeding disorder Hypertension Uterine cancer Thyroid condition Social History Smoking and tobacco status: never smoked Second hand smoke exposure: No Smoking risk assessment/counseling performed?: No Alcohol intake: former Former alcohol use details: prior to Desire information about alcohol rehabilitation?: No Counseling given: No Desire information about substance/drug rehabilitation?: No Counseling given: No Adopted: No Caregiver/support person: No Lives independently: Yes Household members: spouse Housing: House Marital status: Number of children: 2 service: No Current occupational status: employed Current occupation: [employer] Pets and animals: No History of recent travel: No Leisure activites: exercise Current gender identity: Female Female Reproductive History: Date of last menstrual period: 05/13/21 Physical Exam Const: COMMON NORMALS: no acute distress, patient oriented x3 and healthy appearing HENMT: COMMON NORMALS: normocephalic and atraumatic HEAD & SCALP: normocephalic and atraumatic Eye: COMMON NORMALS: Equal, round and reactive pupils present and EOMs intact bilaterally PUPIL: Yes Equal, round and reactive pupils present Neck/C-Spine: COMMON NORMALS: full ROM and supple Chest: COMMONS NORMALS: normal inspection of the chest and normal palpation of entire chest wall Resp: COMMON NORMALS: normal respiratory effort, No retractions, No use of accessory muscles and clear to auscultation bilaterally AUSCULTATION: clear to auscultation bilaterally Cardio: COMMON NORMALS: regular rate, regular rhythm and No murmurs present (Cardio) RATE: regular rate RHYTHM: regular rhythm GI: COMMON NORMALS: Normal to inspection, nondistended, normoactive bowel sounds present, Soft to palpation and no masses PALPATION: Yes Soft to palpation OTHER: Diffuse mild tenderness Extremity: COMMON NORMALS: normal to inspection and full ROM Neuro: COMMON NORMALS: patient oriented x3, moves all extremities and no focal motor deficits Psych: COMMON NORMALS: mental status grossly normal, Normal thought process present and cooperative THOUGHT PROCESS: Normal thought process present Skin: COMMON NORMALS: no rashes or lesions noted and no wounds GENERAL SKIN EXAM: no rashes or lesions noted Course Vital Signs: Vital signs: Vital Signs Temperature 98.0 F 05/14/21 03:37 Pulse Rate 74 05/14/21 06:25 Respiratory Rate 18 05/14/21 06:25 Blood Pressure 122/78 05/14/21 06:25 Pulse Oximetry 99 05/14/21 06:25 MDM - Abdominal Pain Lab Data: Labs: Lab Results 08/12/2905/13/21 05/13/21 Range/Units 21:46 21:46 21:46 WBC 7.4 (4.0-10.0) 10^3/ uL RBC 4.46 (4.1-5.3) 10^6/u L Hgb 13.2 (11.5-15.3) g/dL Hct 42.7 (37.0-47.0) % MCV 95.7 (81-99) fL MCH 29.6 (28.0-34.0) pg MCHC 30.9 (30.0-36.0) g/dL RDW 13.1 (12.1-15.1) % Plt Count 291 (130-400) 10^3/c mm MPV 9.8 (7.4-10.4) fL Neut % (Auto) 74.5 % Lymph % (Auto) 17.1 % [place] % (Auto) 6.0 % Eos % (Auto) 2.0 % Baso % (Auto) 0.3 % Neut # (Auto) 5.54 (1.8-7.7) 10^3/u L Lymph # (Auto) 1.3 (0.8-4.8) 10^3/u L [place] # (Auto) 0.5 (0.2-0.9) 10^3/u L Eos # (Auto) 0.2 (0.0-0.8) 10^3/u L Baso # (Auto) 0.0 (0.0-0.1) 10^3/u L Nucleated RBC % (a uto) 0 % Nucleated RBCs # 0.0 /100WBC Sodium 139 (136-145) mmol/L Potassium 4.0 (3.5-5.1) mmol/L Chloride 107 (98-107) mmol/L Carbon Dioxide 22 (22-29) mmol/L Anion Gap 14.0 (5-19) BUN 6 (6-20) mg/dL Creatinine 0.5 (0.5-0.9) mg/dL GFR Calculation 151.6 H (90-130) mL/min Glucose 74 (65-115) mg/dL Calculated Osmolal ity 284 L (285-295) mOsm/k g Lactate (0.5-2.2) mmol/L Calcium 8.7 (8.5-10.5) mg/dL Total Bilirubin 0.3 (0.15-1.2) mg/dL AST 15 (0-32) U/L ALT 8 (0-33) U/L Alkaline Phosphata se 97 (35-105) IU/L Total Protein 6.3 L (6.6-8.7) g/dL Albumin 4.3 (3.5-5.2) g/dL Globulin 2.0 (1.3-4.6) g/dL Lipase 32 (13-60) U/L HCG, Qual Negative (Negative) Urine Color (Yellow) Urine Appearance (CLEAR) Urine pH (5-7) Ur Specific Gravit y (1.005-1.030) Urine Protein (Negative) Urine Glucose (UA) (Normal) Urine Ketones (Negative) Urine Blood (Negative) Urine Nitrate (Negative) Urine Bilirubin (Negative) Urine Urobilinogen (Negative) mg/dL Ur Leukocyte Marcelle ase (Negative) Urine RBC (0-2) /hpf Urine WBC (0-5) /hpf Ur Squamous Epith Cells (0-5) /hpf Amorphous Sediment Urine Bacteria (NONE) /hpf 05/13/21 05/14/21 Range/Units 21:46 05:48 WBC (4.0-10.0) 10^3/ uL RBC (4.1-5.3) 10^6/u L Hgb (11.5-15.3) g/dL Hct (37.0-47.0) % MCV (81-99) fL MCH (28.0-34.0) pg MCHC (30.0-36.0) g/dL RDW (12.1-15.1) % Plt Count (130-400) 10^3/c mm MPV (7.4-10.4) fL Neut % (Auto) % Lymph % (Auto) % [place] % (Auto) % Eos % (Auto) % Baso % (Auto) % Neut # (Auto) (1.8-7.7) 10^3/u L Lymph # (Auto) (0.8-4.8) 10^3/u L [place] # (Auto) (0.2-0.9) 10^3/u L Eos # (Auto) (0.0-0.8) 10^3/u L Baso # (Auto) (0.0-0.1) 10^3/u L Nucleated RBC % (a uto) % Nucleated RBCs # /100WBC Sodium (136-145) mmol/L Potassium (3.5-5.1) mmol/L Chloride (98-107) mmol/L Carbon Dioxide (22-29) mmol/L Anion Gap (5-19) BUN (6-20) mg/dL Creatinine (0.5-0.9) mg/dL GFR Calculation (90-130) mL/min Glucose (65-115) mg/dL Calculated Osmolal ity (285-295) mOsm/k g Lactate 0.3 L (0.5-2.2) mmol/L Calcium (8.5-10.5) mg/dL Total Bilirubin (0.15-1.2) mg/dL AST (0-32) U/L ALT (0-33) U/L Alkaline Phosphata se (35-105) IU/L Total Protein (6.6-8.7) g/dL Albumin (3.5-5.2) g/dL Globulin (1.3-4.6) g/dL Lipase (13-60) U/L HCG, Qual (Negative) Urine Color Yellow (Yellow) Urine Appearance Clear (CLEAR) Urine pH 5 (5-7) Ur Specific Gravit y 1.010 (1.005-1.030) Urine Protein Neg (Negative) Urine Glucose (UA) Norm (Normal) Urine Ketones Negative (Negative) Urine Blood 3+ H (Negative) Urine Nitrate Negative (Negative) Urine Bilirubin Neg (Negative) Urine Urobilinogen Norm (Negative) mg/dL Ur Leukocyte Marcelle ase Negative (Negative) Urine RBC 5-10 H (0-2) /hpf Urine WBC None (0-5) /hpf Ur Squamous Epith Cells 5-10 H (0-5) /hpf Amorphous Sediment Not Reportable Urine Bacteria None (NONE) /hpf Discharge Plan Discharge Patient Disposition: Home Clinical Impression: Abdominal pain, Biliary dyskinesia Condition: Stable Prescriptions: New promethazine 25 mg tablet 25 mg PO QID PRN (Reason: nausea and vomiting) Qty: 20 RF: 0 omeprazole 20 mg capsule,delayed release(DR/EC) 20 mg PO DAILY 28 Days RF: 0 hydrocodone-acetaminophen 5-325 mg tablet 1 tab PO Q6H PRN (Reason: pain) Qty: 15 RF: 0 Held promethazine-DM 6.25-15 mg/5 mL syrup 5 ml PO Q6H PRN (Reason: cough) Qty: 118 RF: 0 Hold Instructions: Resume on 05/28/21. Reglan 10 mg tablet 10 mg PO Q6H PRN (Reason: nausea and vomiting) Qty: 20 RF: 0 Hold Instructions: Resume on 05/28/21. Discontinued naproxen [Naprosyn] 500 mg tablet 500 mg PO BID PRN (Reason: pain) Qty: 20 RF: 0 No Action Augmentin 875-125 mg tablet 1 tab PO BID Qty: 14 RF: 0 Discharge Orders: Discharge ED (Routine); Ordered 05/14/21 Ordered By: Florin Grace Referrals: Ernesto Leung MD [Primary Care Provider] - Patient Instructions: Abdominal Pain (ED), Opioid Safety Sign Out Sign Out Data: Patient Sign Out occurred on 05/14/21 at 06:23. Patient's care was discussed, and care was transferred from to Florin Grace DO. Coding Level of Care Code ED Clamshell Operator for Chg Fwd Exam Comprehensive Documented by User: Florin Grace DO 05/14/21 07:04 HPI - Abdominal Pain General: Chief Complaint: Abdominal Pain Stated Complaint: ABD PAIN/DIARRHEA Time Seen by Provider: 05/14/21 03:33 PFS ED PFSH: Medical History Bleeding in early Surgical History H/O dilation and curettage 09/05/2020- suction D&C performed by Dr. Leung at [facility] No history of previous surgery Family History Grandmother Clotting disorder maternal Diabetes maternal Father Stroke Family/Other Breast cancer maternal aunt Denies family history of Colon cancer Ovarian cancer Heart disease Hyperlipidemia Anesthesia complication Bleeding disorder Hypertension Uterine cancer Thyroid condition Social History Smoking and tobacco status: never smoked Second hand smoke exposure: No Smoking risk assessment/counseling performed?: No Alcohol intake: former Former alcohol use details: prior to Desire information about alcohol rehabilitation?: No Counseling given: No Desire information about substance/drug rehabilitation?: No Counseling given: No Adopted: No Caregiver/support person: No Lives independently: Yes Household members: spouse Housing: House Marital status: Number of children: 2 service: No Current occupational status: employed Current occupation: [employer] Pets and animals: No History of recent travel: No Leisure activites: exercise Current gender identity: Female Course Vital Signs: Vital signs: Vital Signs Temperature 98.0 F 05/14/21 03:37 Pulse Rate 74 05/14/21 06:25 Respiratory Rate 18 05/14/21 06:25 Blood Pressure 122/78 05/14/21 06:25 Pulse Oximetry 99 05/14/21 06:25 MDM - Abdominal Pain MDM Narrative: Medical decision making narrative: Assumed at change of shift CT read is negative patient does have a lot of gastric distention. Ultrasound gallbladder was negative labs for the most part are unremarkable patient has recurrent nausea and vomiting with normal liver functions. This is been going on for at least a month. We will set her up for a HIDA scan and discharge her home with hydrocodone we will switch her from Reglan to promethazine have her stop the promethazine DM cough syrup. Also switch her from Pepcid she has been taking to Prilosec. Have her follow-up with a general surgeon after the HIDA scan is completed. Lab Data: Labs: Lab Results 05/13/21 05/13/21 05/13/21 Range/Units 21:46 21:46 21:46 WBC 7.4 (4.0-10.0) 10^3/ uL RBC 4.46 (4.1-5.3) 10^6/u L Hgb 13.2 (11.5-15.3) g/dL Hct 42.7 (37.0-47.0) % MCV 95.7 (81-99) fL MCH 29.6 (28.0-34.0) pg MCHC 30.9 (30.0-36.0) g/dL RDW 13.1 (12.1-15.1) % Plt Count 291 (130-400) 10^3/c mm MPV 9.8 (7.4-10.4) fL Neut % (Auto) 74.5 % Lymph % (Auto) 17.1 % [place] % (Auto) 6.0 % Eos % (Auto) 2.0 % Baso % (Auto) 0.3 % Neut # (Auto) 5.54 (1.8-7.7) 10^3/u L Lymph # (Auto) 1.3 (0.8-4.8) 10^3/u L [place] # (Auto) 0.5 (0.2-0.9) 10^3/u L Eos # (Auto) 0.2 (0.0-0.8) 10^3/u L Baso # (Auto) 0.0 (0.0-0.1) 10^3/u L Nucleated RBC % (a uto) 0 % Nucleated RBCs # 0.0 /100WBC Sodium 139 (136-145) mmol/L Potassium 4.0 (3.5-5.1) mmol/L Chloride 107 (98-107) mmol/L Carbon Dioxide 22 (22-29) mmol/L Anion Gap 14.0 (5-19) BUN 6 (6-20) mg/dL Creatinine 0.5 (0.5-0.9) mg/dL GFR Calculation 151.6 H (90-130) mL/min Glucose 74 (65-115) mg/dL Calculated Osmolal ity 284 L (285-295) mOsm/k g Lactate (0.5-2.2) mmol/L Calcium 8.7 (8.5-10.5) mg/dL Total Bilirubin 0.3 (0.15-1.2) mg/dL AST 15 (0-32) U/L ALT 8 (0-33) U/L Alkaline Phosphata se 97 (35-105) IU/L Total Protein 6.3 L (6.6-8.7) g/dL Albumin 4.3 (3.5-5.2) g/dL Globulin 2.0 (1.3-4.6) g/dL Lipase 32 (13-60) U/L HCG, Qual Negative (Negative) Urine Color (Yellow) Urine Appearance (CLEAR) Urine pH (5-7) Ur Specific Gravit y (1.005-1.030) Urine Protein (Negative) Urine Glucose (UA) (Normal) Urine Ketones (Negative) Urine Blood (Negative) Urine Nitrate (Negative) Urine Bilirubin (Negative) Urine Urobilinogen (Negative) mg/dL Ur Leukocyte Marcelle ase (Negative) Urine RBC (0-2) /hpf Urine WBC (0-5) /hpf Ur Squamous Epith Cells (0-5) /hpf Amorphous Sediment Urine Bacteria (NONE) /hpf 05/13/21 05/14/21 Range/Units 21:46 05:48 WBC (4.0-10.0) 10^3/ uL RBC (4.1-5.3) 10^6/u L Hgb (11.5-15.3) g/dL Hct (37.0-47.0) % MCV (81-99) fL MCH (28.0-34.0) pg MCHC (30.0-36.0) g/dL RDW (12.1-15.1) % Plt Count (130-400) 10^3/c mm MPV (7.4-10.4) fL Neut % (Auto) % Lymph % (Auto) % [place] % (Auto) % Eos % (Auto) % Baso % (Auto) % Neut # (Auto) (1.8-7.7) 10^3/u L Lymph # (Auto) (0.8-4.8) 10^3/u L [place] # (Auto) (0.2-0.9) 10^3/u L Eos # (Auto) (0.0-0.8) 10^3/u L Baso # (Auto) (0.0-0.1) 10^3/u L Nucleated RBC % (a uto) % Nucleated RBCs # /100WBC Sodium (136-145) mmol/L Potassium (3.5-5.1) mmol/L Chloride (98-107) mmol/L Carbon Dioxide (22-29) mmol/L Anion Gap (5-19) BUN (6-20) mg/dL Creatinine (0.5-0.9) mg/dL GFR Calculation (90-130) mL/min Glucose (65-115) mg/dL Calculated Osmolal ity (285-295) mOsm/k g Lactate 0.3 L (0.5-2.2) mmol/L Calcium (8.5-10.5) mg/dL Total Bilirubin (0.15-1.2) mg/dL AST (0-32) U/L ALT (0-33) U/L Alkaline Phosphata se (35-105) IU/L Total Protein (6.6-8.7) g/dL Albumin (3.5-5.2) g/dL Globulin (1.3-4.6) g/dL Lipase (13-60) U/L HCG, Qual (Negative) Urine Color Yellow (Yellow) Urine Appearance Clear (CLEAR) Urine pH 5 (5-7) Ur Specific Gravit y 1.010 (1.005-1.030) Urine Protein Neg (Negative) Urine Glucose (UA) Norm (Normal) Urine Ketones Negative (Negative) Urine Blood 3+ H (Negative) Urine Nitrate Negative (Negative) Urine Bilirubin Neg (Negative) Urine Urobilinogen Norm (Negative) mg/dL Ur Leukocyte Marcelle ase Negative (Negative) Urine RBC 5-10 H (0-2) /hpf Urine WBC None (0-5) /hpf Ur Squamous Epith Cells 5-10 H (0-5) /hpf Amorphous Sediment Not Reportable Urine Bacteria None (NONE) /hpf Discharge Plan Discharge Patient Disposition: Home Clinical Impression: Abdominal pain, Biliary dyskinesia Condition: Stable Prescriptions: New promethazine 25 mg tablet 25 mg PO QID PRN (Reason: nausea and vomiting) Qty: 20 RF: 0 omeprazole 20 mg capsule,delayed release(DR/EC) 20 mg PO DAILY 28 Days RF: 0 hydrocodone-acetaminophen 5-325 mg tablet 1 tab PO Q6H PRN (Reason: pain) Qty: 15 RF: 0 Held promethazine-DM 6.25-15 mg/5 mL syrup 5 ml PO Q6H PRN (Reason: cough) Qty: 118 RF: 0 Hold Instructions: Resume on 05/28/21. Reglan 10 mg tablet 10 mg PO Q6H PRN (Reason: nausea and vomiting) Qty: 20 RF: 0 Hold Instructions: Resume on 05/28/21. Discontinued naproxen [Naprosyn] 500 mg tablet 500 mg PO BID PRN (Reason: pain) Qty: 20 RF: 0 No Action Augmentin 875-125 mg tablet 1 tab PO BID Qty: 14 RF: 0 Discharge Orders: Discharge ED (Routine); Ordered 05/14/21 Ordered By: Florin Grace Referrals: Ernesto Leung MD [Primary Care Provider] - Patient Instructions: Abdominal Pain (ED), Opioid Safety Sign Out Sign Out Data: Patient Sign Out occurred on 05/14/21 at 06:23. Patient's care was discussed, and care was transferred from to Florin Grace DO. Coding Level of Care Code ED Clamshell Operator for Evan Fwd Exam Comprehensive
[2021-05-14] MEDS: metoclopramide 5 mg/mL SDV 2 mL 10 MG IVP (04:32)
[2021-05-14] MEDS: diphenhydrAMINE 50 mg/mL SDV 1mL IVP (04:34)
[2021-05-14 04:39] VITALS: BP 129/89; PULSE 80; RESP 18; O2SAT 100
[2021-05-14] MEDS: iohexol 300 mg/mL 50 mL Btl PO (04:59)
[2021-05-14] MEDS: iohexol 300 mg/mL 100 mL Btl IV (05:00)
[2021-05-14 05:52] VITALS: BP 123/76; PULSE 84; RESP 16; O2SAT 100
[2021-05-14 06:25] VITALS: BP 122/78; PULSE 74; RESP 18; O2SAT 99
[2021-05-14 06:39] LABS: Add Urine Microscopic? YES; Bilirubin Urine Neg (Negative); Blood Urine 3+ (Negative); Glucose Urine UA Norm (Normal); Ketones Urine Negative (Negative); Leukocyte Esterase Urine Negative (Negative); Nitrate Urine Negative (Negative); Protein Urine Neg (Negative); Urine Appearance Clear (CLEAR); Urine Color Yellow (Yellow); Urobilinogen Urine Norm (Negative); pH Urine 5 (5-7)
[2021-05-14 06:40] LABS: Add Urine Culture? No
[2021-05-14 07:22] VITALS: RESP 15
[2021-05-14] MEDS: HYDROmorphone 1 mg/mL INJ 1 mL 0.5 MG IVP (07:22)
[2021-05-14 07:30] VITALS: BP 115/77; PULSE 87; RESP 15; O2SAT 97
--- NOTE | 2021-05-14 12:57 | DCPLANNER ---
Addendum entered by Jessica Hernandez 05/15/21 08:46: Patient came back to the ER and was seen. Patient was admitted to hospital, and will have the HIDA scan as in patient. Original Note: multicultural manager had message to schedule an out patient HIDA scan for patient. multicultural manager called patient to confirm if patient wanted the test, and to confirm who patient sees for primary care to see who to send the results to. multicultural manager called phone number [phone], unable to speak with patient at this time, a voicemail was left for patient to return director of casework phone call.
== END 2021-05-14 07:34 | disposition home or self-care (01) ==
PROVIDERS: Emergency Medicine; Physician Assistant; Emergency Provider Family Medicine; PCP Obstetrics & Gynecology
DX: R10.9 Unspecified abdominal pain (principal); K82.8 Other specified diseases of gallbladder
CPT/HCPCS: 74177; 76705; 80053; 81001; 83605; 83690; 84703; 85025; 96361; 96374; 96375; 96376; 99284; J1170; J1200; J2405; J2765; J7030; Q9967

== ENCOUNTER 2021-05-14 23:49 | Observation (INO) | payer MEDICAID, SELFPAY ==
[2021-05-15] VITALS (22 sets, daily range): BP systolic 83–117; BP diastolic 48–93; PULSE 53–99; RESP 10–24; TEMP 36.8; O2SAT 97–100; BMI 27.3
--- NOTE | 2021-05-15 00:25 | XRR_ITS ---
PROCEDURE INFORMATION: Exam: XR Chest Exam date and time: 05/15/2021 12:25 AM Age: 26 years old Clinical indication: Chest pressure; Patient HX: Chest pain; Additional info: Cp TECHNIQUE: Imaging protocol: XR of the chest. Views: 1 view. COMPARISON: CR (CHEST, ) 05/13/2021 4:02 AM FINDINGS: Lungs: No consolidation. Pleural spaces: Unremarkable. No pleural effusion. No pneumothorax. Heart/Mediastinum: No cardiomegaly. Bones/joints: No acute fracture. XR/XR chest 1V portable [id number] IMPRESSION: No acute findings.
--- NOTE | 2021-05-15 00:25 | XRR_ITS ---
PROCEDURE INFORMATION: Exam: XR Abdomen Exam date and time: 05/15/2021 12:25 AM Age: 26 years old Clinical indication: Abdominal pain; Generalized; Patient HX: Persistent abd pain with n/v. TECHNIQUE: Imaging protocol: XR of the abdomen. Views: Frontal supine view of the abdomen. 1 View. COMPARISON: CT abdomen pelvis w con* [id number] 05/14/2021 5:01 AM FINDINGS: Gastrointestinal tract: Residual contrast noted in the colon. There are no dilated bowel loops. No high-grade obstruction. Bowel gas pattern unremarkable. Moderate amount of stool noted in the colon. Bones/joints: Unremarkable. XR/XR KUB [id number] IMPRESSION: No acute findings.
--- NOTE | 2021-05-15 00:49 | W.ED.CHESTPA ---
HPI - Chest Pain General: Chief Complaint: Chest Pain Stated Complaint: cp,abdomen pain, n/v Time Seen by Provider: 05/14/21 23:53 Source: patient Mode of arrival: ambulatory Limitations: no limitations History of Present Illness: HPI narrative: 26-year-old female who has been having diffuse abdominal pain fevers and vomiting over the last 2 days. She has been seen here and has had 2 CAT scans that showed abdominal distention but no signs of obstruction. She has been on Reglan and Zofran and Phenergan with no relief. She states that her pain is worsened and she keeps vomiting. She states she had a fever today of 101. States she had some chest pain from vomiting as well. Denies any worsening or improving factors. Associated symptoms: Reports abdominal pain, fever(s), nausea and vomiting; Deny dyspnea Review of Systems Const: Reports: fever(s) Eyes: Denies: blurry vision or eye discomfort ENMT: Denies: throat pain or dental pain Card: Reports: chest pain Resp: Denies: dyspnea GI: Reports: abdominal pain, nausea and vomiting : Denies: dysuria Musc: Denies: neck pain or back pain Skin/Breast: Denies: rash Neuro: Denies: headache(s) Psych: Denies: depression Carlo/Lymph: Denies: easy bruising All/Imm: Denies: urticaria PFSH ED PFSH: Medical History Bleeding in early Surgical History H/O dilation and curettage 09/05/2020- suction D&C performed by Dr. Leung at [facility] No history of previous surgery Family History Grandmother Clotting disorder maternal Diabetes maternal Father Stroke Family/Other Breast cancer maternal aunt Denies family history of Colon cancer Ovarian cancer Heart disease Hyperlipidemia Anesthesia complication Bleeding disorder Hypertension Uterine cancer Thyroid condition Social History Smoking and tobacco status: never smoked Second hand smoke exposure: No Smoking risk assessment/counseling performed?: No Alcohol intake: former Former alcohol use details: prior to Desire information about alcohol rehabilitation?: No Counseling given: No Desire information about substance/drug rehabilitation?: No Counseling given: No Adopted: No Caregiver/support person: No Lives independently: Yes Household members: spouse Housing: House Marital status: Number of children: 2 service: No Current occupational status: employed Current occupation: [employer] Pets and animals: No History of recent travel: No Leisure activites: exercise Current gender identity: Female Female Reproductive History: Date of last menstrual period: 05/15/21 Physical Exam Const: COMMON NORMALS: no acute distress, patient oriented x3 and healthy appearing HENMT: COMMON NORMALS: normocephalic and atraumatic HEAD & SCALP: normocephalic and atraumatic Eye: COMMON NORMALS: Equal, round and reactive pupils present and EOMs intact bilaterally PUPIL: Yes Equal, round and reactive pupils present Neck/C-Spine: COMMON NORMALS: full ROM and supple Chest: COMMONS NORMALS: normal inspection of the chest and normal palpation of entire chest wall Resp: COMMON NORMALS: normal respiratory effort, No retractions, No use of accessory muscles and clear to auscultation bilaterally AUSCULTATION: clear to auscultation bilaterally Cardio: COMMON NORMALS: regular rate, regular rhythm and No murmurs present (Cardio) RATE: regular rate RHYTHM: regular rhythm GI: COMMON NORMALS: Normal to inspection, nondistended, normoactive bowel sounds present, Soft to palpation and no masses PALPATION: Yes Soft to palpation OTHER: Diffuse tenderness Extremity: COMMON NORMALS: normal to inspection and full ROM Neuro: COMMON NORMALS: patient oriented x3, moves all extremities and no focal motor deficits Psych: COMMON NORMALS: mental status grossly normal, Normal thought process present and cooperative THOUGHT PROCESS: Normal thought process present Skin: COMMON NORMALS: no rashes or lesions noted and no wounds GENERAL SKIN EXAM: no rashes or lesions noted Course Vital Signs: Vital signs: Vital Signs Temperature 98.3 F 05/15/21 00:10 Pulse Rate 53 L 05/15/21 04:30 Respiratory Rate 16 05/15/21 04:43 Blood Pressure 96/64 05/15/21 04:30 Pulse Oximetry 99 05/15/21 04:43 MDM - Chest Pain MDM Narrative: Medical decision making narrative: Patient presents with vomiting. This is her third trip in the last [address] that showed some abdominal distention no signs of bowel obstruction. She has been on Reglan and Phenergan and continues to vomit. I spoke to the hospitalist and will admit for observation for intractable vomiting. Abdominal exam here is benign. Lab Data: Labs: Lab Results 05/15/21 05/15/21 05/15/21 Range/Units 00:42 00:42 00:42 WBC 6.1 (4.0-10.0) 10^3/ uL RBC 4.28 (4.1-5.3) 10^6/u L Hgb 12.6 (11.5-15.3) g/dL Hct 40.4 (37.0-47.0) % MCV 94.4 (81-99) fL MCH 29.4 (28.0-34.0) pg MCHC 31.2 (30.0-36.0) g/dL RDW 13.1 (12.1-15.1) % Plt Count 285 (130-400) 10^3/c mm MPV 10.2 (7.4-10.4) fL Neut % (Auto) 51.4 % Lymph % (Auto) 37.2 % Park % (Auto) 7.4 % Eos % (Auto) 3.5 % Baso % (Auto) 0.5 % Neut # (Auto) 3.13 (1.8-7.7) 10^3/u L Lymph # (Auto) 2.3 (0.8-4.8) 10^3/u L Park # (Auto) 0.5 (0.2-0.9) 10^3/u L Eos # (Auto) 0.2 (0.0-0.8) 10^3/u L Baso # (Auto) 0.0 (0.0-0.1) 10^3/u L Nucleated RBC % (a uto) 0 % Nucleated RBCs # 0.0 /100WBC Sodium 139 (136-145) mmol/L Potassium 3.7 (3.5-5.1) mmol/L Chloride 103 (98-107) mmol/L Carbon Dioxide 28 (22-29) mmol/L Anion Gap 11.7 (5-19) BUN 7 (6-20) mg/dL Creatinine 0.6 (0.5-0.9) mg/dL GFR Calculation 122.8 (90-130) mL/min Glucose 73 (65-115) mg/dL Calculated Osmolal ity 285 (285-295) mOsm/k g Lactate 0.8 (0.5-2.2) mmol/L Calcium 8.8 (8.5-10.5) mg/dL Total Bilirubin 0.2 (0.15-1.2) mg/dL AST 12 (0-32) U/L ALT 7 (0-33) U/L Alkaline Phosphata se 95 (35-105) IU/L Troponin T Baselin e (0-10) ng/L Troponin T 120 Min xander (0-10) ng/L Delta Troponin T (0-10) ABS# Total Protein 6.0 L (6.6-8.7) g/dL Albumin 3.8 (3.5-5.2) g/dL Globulin 2.2 (1.3-4.6) g/dL Lipase 27 (13-60) U/L SARS-CoV-2 Ag (Rap id) (Negative) 05/15/21 05/15/21 05/15/21 Range/Units 00:42 01:16 02:36 WBC (4.0-10.0) 10^3/ uL RBC (4.1-5.3) 10^6/u L Hgb (11.5-15.3) g/dL Hct (37.0-47.0) % MCV (81-99) fL MCH (28.0-34.0) pg MCHC (30.0-36.0) g/dL RDW (12.1-15.1) % Plt Count (130-400) 10^3/c mm MPV (7.4-10.4) fL Neut % (Auto) % Lymph % (Auto) % Park % (Auto) % Eos % (Auto) % Baso % (Auto) % Neut # (Auto) (1.8-7.7) 10^3/u L Lymph # (Auto) (0.8-4.8) 10^3/u L Park # (Auto) (0.2-0.9) 10^3/u L Eos # (Auto) (0.0-0.8) 10^3/u L Baso # (Auto) (0.0-0.1) 10^3/u L Nucleated RBC % (a uto) % Nucleated RBCs # /100WBC Sodium (136-145) mmol/L Potassium (3.5-5.1) mmol/L Chloride (98-107) mmol/L Carbon Dioxide (22-29) mmol/L Anion Gap (5-19) BUN (6-20) mg/dL Creatinine (0.5-0.9) mg/dL GFR Calculation (90-130) mL/min Glucose (65-115) mg/dL Calculated Osmolal ity (285-295) mOsm/k g Lactate (0.5-2.2) mmol/L Calcium (8.5-10.5) mg/dL Total Bilirubin (0.15-1.2) mg/dL AST (0-32) U/L ALT (0-33) U/L Alkaline Phosphata se (35-105) IU/L Troponin T Baselin e 6 (0-10) ng/L Troponin T 120 Min xander 6.00 (0-10) ng/L Delta Troponin T 0 (0-10) ABS# Total Protein (6.6-8.7) g/dL Albumin (3.5-5.2) g/dL Globulin (1.3-4.6) g/dL Lipase (13-60) U/L SARS-CoV-2 Ag (Rap id) Negative (Negative) EKG Data^: EKG 1: Attestation: I personally reviewed and interpreted this EKG as follows: EKG interpretation date: 05/15/21 EKG interpretation time: 00:50 Interpretation: nsr hr [address] or t wave abnormalities qrs 85 qtc 383 Discharge Plan Discharge Prescriptions: No Action promethazine-DM 6.25-15 mg/5 mL syrup 5 ml PO Q6H PRN (Reason: cough) Qty: 118 RF: 0 Hold Instructions: Resume on 05/28/21. Reglan 10 mg tablet 10 mg PO Q6H PRN (Reason: nausea and vomiting) Qty: 20 RF: 0 Hold Instructions: Resume on 05/28/21. promethazine 25 mg tablet 25 mg PO QID PRN (Reason: nausea and vomiting) Qty: 20 RF: 0 omeprazole 20 mg capsule,delayed release(DR/EC) 20 mg PO DAILY 28 Days RF: 0 hydrocodone-acetaminophen 5-325 mg tablet 1 tab PO Q6H PRN (Reason: pain) Qty: 15 RF: 0 Augmentin 875-125 mg tablet 1 tab PO BID Qty: 14 RF: 0 Coding Level of Care Code ED Architectural Coating Finisher for Evan Fwd Exam Comprehensive
[2021-05-15 00:55] LABS: Basophils % 0.5 %; Eosinophils # 0.2 10^3/uL (0.0-0.8); Eosinophils % 3.5 %; Hematocrit 40.4 % (37.0-47.0); Hemoglobin 12.6 g/dL (11.5-15.3); Lymphocytes # 2.3 10^3/uL (0.8-4.8); Lymphocytes % 37.2 %; Mean Corpuscular HGB Conc 31.2 g/dL (30.0-36.0); Mean Corpuscular Hemoglobin 29.4 pg (28.0-34.0); Mean Corpuscular Volume 94.4 fL (81-99); Mean Platelet Volume 10.2 fL (7.4-10.4); Monocytes # 0.5 10^3/uL (0.2-0.9); Monocytes % 7.4 %; Neutrophils # 3.13 10^3/uL (1.8-7.7); Neutrophils % 51.4 %; Nucleated Red Blood Cells % 0 %; Platelet Count 285 10^3/cmm (130-400); Red Blood Count 4.28 10^6/uL (4.1-5.3); Red Cell Distribution Width 13.1 % (12.1-15.1); White Blood Count 6.1 10^3/uL (4.0-10.0)
[2021-05-15] MEDS: HYDROmorphone 1 mg/mL INJ 1 mL IVP (01:00)
[2021-05-15] MEDS: sodium chloride 0.9% 1,000 ML 999 ML IV ×2 (01:00→04:33)
[2021-05-15] MEDS: ondansetron 2 mg/ML SDV 2 mL 4 MG IVP ×3 (01:00→21:41)
[2021-05-15 01:15] LABS: Troponin(5th) Baseline 6 ng/L (0-10)
[2021-05-15 01:16] LABS: Alanine Aminotransferase 7 U/L (0-33); Albumin Level 3.8 g/dL (3.5-5.2); Alkaline Phosphatase 95 IU/L (35-105); Anion Gap 11.7 (5-19); Aspartate Amino Transferase 12 U/L (0-32); Blood Urea Nitrogen 7 mg/dL (6-20); Calcium 8.8 mg/dL (8.5-10.5); Carbon Dioxide 28 mmol/L (22-29); Chloride 103 mmol/L (98-107); Globulin 2.2 g/dL (1.3-4.6); Glomerular Filtration Rate 122.8 mL/min (90-130); Glucose 73 mg/dL (65-115); Lipase 27 U/L (13-60); Osmolality Calculated 285 mOsm/kg (285-295); Potassium 3.7 mmol/L (3.5-5.1); Sodium 139 mmol/L (136-145); Total Bilirubin 0.2 mg/dL (0.15-1.2)
[2021-05-15 01:17] LABS: Lactate (Lactic Acid level) 0.8 mmol/L (0.5-2.2)
[2021-05-15 01:51] LABS: SARS Covid-2 Antigen Negative (Negative)
[2021-05-15] MEDS: diphenhydrAMINE 50 mg/mL SDV 1mL IVP (02:49)
[2021-05-15] MEDS: metoclopramide 5 mg/mL SDV 2 mL 10 MG IVP ×2 (02:53→07:36)
[2021-05-15 03:04] LABS: Troponin 5 2HR Delta 0 ABS# (0-10)
[2021-05-15] MEDS: HYDROmorphone 1 mg/mL INJ 1 mL 0.5 MG IVP (04:43)
--- NOTE | 2021-05-15 05:02 | PM.HP ---
Providers/Chief Complaint Primary Care Provider: Ramila Petit APN Chief Complaint: cp,abdomen pain, n/v History of Present Illness Maria Eugenia Parkinson is a 26 year old female with no known past medical history presented today with chief complaint of intractable nausea vomiting. Patient is stating that she ate Faroese food on Wednesday, she had shrimp soup, chicken and steak, in the evening she started experiencing abdominal pain which are associated with multiple episode of emesis and nausea. Her symptoms were not improving, she decided to come to the ED for further evaluation. In the ED her lab work was unremarkable, she was discharged home after CT abdomen pelvis. However she presented again due to intractable nausea vomiting within 12 hours this time oral contrast was given which showed stomach distention, umbilical hernia without any signs of obstruction she was discharged home with Phenergan. She is presenting back third time with similar complaint of intractable nausea vomiting. In total she has had more than 10 episodes of emesis which she describing as bilious/green color. She also experiencing green color diarrhea, fever 101. She is denying chest pain, shortness of breath. No recent camping. She has noticed blood in her vomitus and stool, dark-colored stool. Diagnostic work-up in the ER revealed normal CBC and BMP, patient looks dehydrated slightly hypotensive, received 2 L normal saline bolus Patient is still complaining of abdominal pain especially in her right upper quadrant Of note, patient has been using phentermine for last 1 year which he stopped a month ago, she lost 60 pounds Review of Systems Const: Reports: fever(s), chills, body aches and fatigue Eyes: Denies: change in vision ENMT: Denies: throat pain Card: Denies: chest pain Resp: Denies: dyspnea GI: Reports: abdominal pain, nausea, vomiting, diarrhea and hematochezia : Denies: flank pain Musc: Denies: neck pain Skin/Breast: Denies: rash Neuro: Denies: headache(s) Psych: Reports: anxiety Endo: Denies: polyuria Carlo/Lymph: Denies: easy bruising All/Imm: Denies: urticaria Medications/Allergies Home Medications Medication Instructions Recorded Confirmed Last Taken Type promethazine-DM 6.25 mg-15 mg/5 mL 5 ml PO Q6H PRN #118 ml 02/19/21 02/19/21 Unknown Rx oral syrup amoxicillin-pot clavulanate 1 tab PO BID #14 tab 02/20/21 Unknown Rx [Augmentin] Reglan 10 mg PO Q6H PRN #20 tab 05/13/21 Unknown Rx hydrocodone-acetaminophen 1 tab PO Q6H PRN #15 tab 05/14/21 Unknown Rx omeprazole 20 mg PO DAILY 28 Days cap 05/14/21 Unknown Rx promethazine 25 mg PO QID PRN #20 tab 05/14/21 Unknown Rx Allergies Allergy/AdvReac Type Severity Reaction Status Date / Time morphine Allergy ALGY-Hives Verified 05/15/21 00:13 PFSH Acute PFSH: Medical History Bleeding in early Surgical History H/O dilation and curettage 09/05/2020- suction D&C performed by Dr. Leung at [facility] No history of previous surgery Family History Grandmother Clotting disorder maternal Diabetes maternal Father Stroke Family/Other Breast cancer maternal aunt Denies family history of Colon cancer Ovarian cancer Heart disease Hyperlipidemia Anesthesia complication Bleeding disorder Hypertension Uterine cancer Thyroid condition Social History Smoking and tobacco status: never smoked Second hand smoke exposure: No Smoking risk assessment/counseling performed?: No Alcohol intake: former Former alcohol use details: prior to Desire information about alcohol rehabilitation?: No Counseling given: No Desire information about substance/drug rehabilitation?: No Counseling given: No Adopted: No Caregiver/support person: No Lives independently: Yes Household members: spouse Housing: House Marital status: Number of children: 2 service: No Current occupational status: employed Current occupation: [employer] Pets and animals: No History of recent travel: No Leisure activites: exercise Current gender identity: Female Female Reproductive History: Date of last menstrual period: 05/15/21 Vitals/I&O/Wt Last Vital Signs Temp 98.3 F 05/15/21 00:10 Pulse 53 L 05/15/21 04:30 Resp 16 05/15/21 04:43 BP 96/64 05/15/21 04:30 Pulse Ox 99 05/15/21 04:43 05/14/21 05/14/21 05/15/21 14:59 22:59 06:59 Intake Total 1000 / 1000 Balance 1000 / 1000 Weight last 48 hrs Weight 65.771 kg Physical Exam Narrative: EXAM NARRATIVE: Young female who was laying comfortably in her bed Saturating well on room air Mild guarding noted, right upper quadrant pain elicited on deep palpation, Beasley sign positive, bowel sound present Otherwise abdomen is soft S1, S2 sinus rhythm Abdominal striae noted Lower extremity no edema Clinically looks dehydrated EOMI, PERRLA Neurologically nonfocal exam No joint swelling Appropriate mood and affect Data : 05/15/21 00:42 05/15/21 00:42 A&P Assessment and plan (1) Gastroenteritis: Status: Acute (2) Abdominal pain: Status: Acute Additional A&P Information Gastroenteritis Gastric distention noted however no active signs of obstruction Patient ate Faroese food on Wednesday and symptoms started within few hours afterwards however no other family members sick at home Fever, black tarry stool, los pain, I would avoid antibiotics at this point No active signs of HUS Fluid hydration and analgesia for now requested hepatobiliary/HIDA scan she has positive Beasley sign Contracted gallbladder she has not eaten in last 4 days. Zofran as needed uses I will give her 1 dose of Decadron for her intractable nausea vomiting Repeat beta-hCG, previous hCG negative Normal TSH Requested procalcitonin Stool study Full liquid diet DVT prophylaxis Lovenox Full code Attestations Medical Necessity Statement*: Intractable nausea vomiting needs hospitalization, anticipating discharge within 48 hours Time Spent in Patient Care: Greater than 35 minutes Coding Level of Care Code Acute Knife Machine Operator for g Fwd Diagnoses Gastroenteritis K52.9 Abdominal pain R10.9
[2021-05-15 05:18] LABS: HCG, Serum Qual Negative (Negative)
[2021-05-15 05:33] LABS: Procalcitonin 0.02 ng/mL (0-0.5)
--- NOTE | 2021-05-15 06:25 | ECG_ITS ---
[facility] ED Test Date: 2021-05-15 Pat Name: Maria Eugenia Parkinson Department: Room: Gender: Female Ax Survey Worker: : 1995 Requested By: Qi Darling Order Number: [id number] Kirsten MD: Sherry Eid M.D. Measurements Intervals Buckner Rate: 70 P: 40 TN: 126 QRS: 65 QRSD: 85 T: 85 QT: 362 QTc: 393 Interpretive Statements SINUS RHYTHM Compared to ECG 11/25/2018 19:58:58 Sinus tachycardia no longer present T-wave abnormality no longer present Electronically Signed On 05-16-2021 16:48:49 CDT by Sherry Eid M.D. [id number]
--- NOTE | 2021-05-15 07:52 | PC.PHAR ---
pt states she never filled the norco,prilosec,promethazine or reglan that was written on 05/14/21 and 05/13/21-ext med history shows phentermine filled on 04/09/21 30d/s pt states she hasnt taken this in a month or so pt states she doesnt remember getting it filled on 04/09/21
--- NOTE | 2021-05-15 09:04 | PC.NURSE ---
pt ate 3 packets of saltine crackers with a blayne lemon tetlin soda.
[2021-05-15] MEDS: enoxaparin 40 mg/0.4 mL Syringe SUBCUT (12:14)
[2021-05-15] MEDS: HYDROmorphone 1 mg/mL INJ 1 mL 0.4 MG IVP ×3 (12:15→23:30)
[2021-05-15] MEDS: sodium chloride 0.9% 1,000 ML 75 ML IV (12:17)
[2021-05-15] MEDS: dexamethasone 4 mg/mL INJ IVP (12:54)
--- NOTE | 2021-05-15 12:54 | PM.PN ---
Subjective Subjective: Interval history: Maria Eugenia reports her abdomen continues to hurt, mainly above her umbilicus. She reports she had some abdominal fullness she described to her primary care provider 1 to 2 months ago and was put on Pepcid at that time. It seemed to improve. She is not for sure if that is related. She started with diarrhea on the first, quickly culminating into vomiting as well. She states she has had multiple bowel movements, without blood. She has had multiple emesis since that time, and has questioned if there could be dark blood in some of that. She reports she had a fever yesterday. She has a sister, who is out for Covid. No marijuana use. Medications: Reviewed: Yes Vitals/I&O/Wt Last Vital Signs Temp 98.3 F 05/15/21 00:10 Pulse 62 05/15/21 07:29 Resp 15 05/15/21 12:15 BP 104/67 05/15/21 07:18 Pulse Ox 98 05/15/21 12:15 05/14/21 05/15/21 05/15/21 22:59 06:59 14:59 Intake Total 1999 Balance 1999 Weight last 48 hrs Weight 65.771 kg Physical Exam Narrative: EXAM NARRATIVE: General exam no apparent distress. She indicates nausea. Neck is supple no lymphadenopathy or thyromegaly Cardiovascular regular rate and rhythm without murmur Lungs clear no wheezing or crackles Abdomen tenderness, above the umbilicus is noted. No obvious organomegaly. is deferred Extremities no cyanosis clubbing or edema, cap refill brisk Skin no rash Neuro no obvious focal deficits. Data : 05/15/21 00:42 05/15/21 00:42 Other Labs: CT abdomen and pelvis done May 13 during a prior emergency department visit did not demonstrate any abnormality. A&P Assessment and plan (1) Gastroenteritis: Clinical picture is significant for enteritis. At this point there is no reason to repeat a CT scan abdomen and pelvis. Although enteritis generally self resolves, she has been ill since Wednesday(5 days) and reports a documented fever over 101 yesterday. Cipro and Flagyl will be initiated. Await stool culture, parasite screen, C. difficile toxin. C. difficile is thought to be less likely. Covid can also cause enteritis, and although her rapid Covid is negative we will perform a PCR. She has a close contact with Covid who she has been exposed to, her sibling. Isolation precautions have been initiated. Repeat laboratory tomorrow Protonix 40 mg IV every 12 hours Pain and nausea control Hydration Status: Acute Additional A&P Information Full code Lovenox for DVT prophylaxis Attestations Medical Necessity Statement*: Needs continued hospital stay, for hydration secondary to intractable nausea and vomiting pending work-up. Coding Level of Care Code Acute Director Of Marketing And Promotions for [facility] Amadeo Diagnoses Gastroenteritis K52.9
[2021-05-15] MEDS: pantoprazole 40 mg SDV IVP (13:59)
[2021-05-15] MEDS: ciprofloxacin 400 MG/200 ML PREMIX 200 MG IV (14:00)
[2021-05-15] MEDS: metroNIDAZOLE IV 500 MG/100 ML PREMIX 100 MG IV ×2 (15:28→22:05)
--- NOTE | 2021-05-15 18:10 | PC.NURSE ---
ATTEMPT TO GIVE REPORT FOR PATIENT GOING TO ROOM 268A
[2021-05-15] MEDS: zolpidem 5 mg Tablet PO (23:27)
[2021-05-16] VITALS (10 sets, daily range): BP systolic 99–119; BP diastolic 56–77; PULSE 64–86; RESP 16–18; TEMP 36.3–37.1; O2SAT 97–98
[2021-05-16] MEDS: pantoprazole 40 mg SDV IVP ×2 (00:55→13:54)
[2021-05-16] MEDS: ciprofloxacin 400 MG/200 ML PREMIX 200 MG IV ×2 (01:05→15:36)
[2021-05-16] MEDS: metroNIDAZOLE IV 500 MG/100 ML PREMIX 100 MG IV ×3 (04:42→21:28)
[2021-05-16 05:27] LABS: Basophils % 0.3 %; Eosinophils % 0.3 %; Hematocrit 36.9 % (37.0-47.0); Hemoglobin 11.6 g/dL (11.5-15.3); Lymphocytes # 1.2 10^3/uL (0.8-4.8); Lymphocytes % 16.3 %; Mean Corpuscular HGB Conc 31.4 g/dL (30.0-36.0); Mean Corpuscular Volume 92.3 fL (81-99); Mean Platelet Volume 9.7 fL (7.4-10.4); Monocytes # 0.5 10^3/uL (0.2-0.9); Monocytes % 6.5 %; Neutrophils # 5.43 10^3/uL (1.8-7.7); Neutrophils % 76.3 %; Nucleated Red Blood Cells % 0 %; Platelet Count 250 10^3/cmm (130-400); Red Cell Distribution Width 12.4 % (12.1-15.1); White Blood Count 7.1 10^3/uL (4.0-10.0)
[2021-05-16 05:52] LABS: Alanine Aminotransferase 7 U/L (0-33); Albumin Level 3.6 g/dL (3.5-5.2); Alkaline Phosphatase 75 IU/L (35-105); Anion Gap 9.7 (5-19); Aspartate Amino Transferase 13 U/L (0-32); Blood Urea Nitrogen 4 mg/dL (6-20); Calcium 8.6 mg/dL (8.5-10.5); Carbon Dioxide 26 mmol/L (22-29); Chloride 108 mmol/L (98-107); Globulin 2.1 g/dL (1.3-4.6); Glomerular Filtration Rate 122.8 mL/min (90-130); Glucose 84 mg/dL (65-115); Magnesium 1.6 mg/dL (1.7-2.3); Osmolality Calculated 286 mOsm/kg (285-295); Potassium 3.7 mmol/L (3.5-5.1); Sodium 140 mmol/L (136-145); Total Bilirubin 0.3 mg/dL (0.15-1.2); Total Protein 5.7 g/dL (6.6-8.7)
--- NOTE | 2021-05-16 06:13 | PC.NURSE ---
Shift Note Frequent safety and comfort rounds continue. Orders and/or nursing care completed as indicated. Patient monitored for response to intervention and treatment(s). Education provided includes new meds including pain meds and ambiem, ]. Patient understand teaching and had verbalized that current pain med not working, hospitalist notified along with patient's request for benadryl for sleep aid. no change in pain med but ambiem order received.patient awake most of the night but noted to be asleep around 0130 and continue to sleep at this time. no nausea or vomiting or diarrhea this shift. Will continue to monitor.
--- NOTE | 2021-05-16 08:00 | NM_ITS ---
WS: [id number] NUCLEAR MEDICINE HIDA SCAN WITH GALLBLADDER EJECTION FRACTION HISTORY: Right upper quadrant pain Beasley sign COMPARISON: Gallbladder ultrasound 05/13/2021 TECHNIQUE: The patient was intravenously injected with 5.1 mCi of TC99m Mebrofenin. Immediate imaging over the right upper quadrant was followed by 5 minute image and additional images for a total of 60 minutes. Normal uptake of radiotracer throughout the liver. Activity identified in the gallbladder at 10 minutes and well distended by 60 minutes. Activity in the proximal small bowel was seen by 30 minutes. Good washout of the radiotracer from the liver by 60 minutes. The patient then drank 8 ounces of Ensure Plus. Ejection fraction at 60 minutes was 92%. Normal GB ej ection fraction is 35-75%. Post fatty meal symptoms: None. NM/NM hepatobiliary w phar* [id number] IMPRESSION: 1. Normal HIDA scan. 2. Normal gallbladder ejection fraction.
[2021-05-16] MEDS: HYDROmorphone 1 mg/mL INJ 1 mL 0.4 MG IVP ×2 (09:10→14:02)
[2021-05-16] MEDS: ondansetron 2 mg/ML SDV 2 mL 4 MG IVP ×3 (09:11→21:35)
[2021-05-16] MEDS: enoxaparin 40 mg/0.4 mL Syringe SUBCUT (09:11)
--- NOTE | 2021-05-16 12:09 | PC.CHAP ---
Pastoral Care Encounter/Spiritual Assessment Type of Contact [] Declined hand mixer visit [] Patient/Family/Request visit [] Outpatient visit [] Follow-up visit [] Physician referral [] Code/Alert [] Routine visit [] Staff referral [] Actively dying [] Patient sleeping [] Family support [] [] Out of room [] Palliative care [] [] Receiving care in room [] Pre-surgical visit [] Trauma [] Long length of stay [] ICU visit [XX] Other: ISOLATION Relational/Emotional Strength [] Patient feels connected with others/family/visitors/staff [] Distress [] Loneliness/isolation [] Abandonment Spirituality of Patient [] Person of Stephanie [] Attends [facility] of their Stephanie [] Believes in Prayer [] Reads Bible or Restorationist materials [] There are Spiritual issues to be addressed Incident Response Engineer Interventions [] Prayer [] Active listening [] Non-anxious presence [] Spiritual/emotional support [] Crisis/trauma care [] Spiritual counseling [] Bereavement support [] Provided bereavement packet [] Provided Bible/devotional materials [] Provided toy/stuffed animal, coloring book to patient or family member [] Provided Communion [] Anointing/[place] [] Salvation [] Completed spiritual assessment [] Other: Impact on Illness or Injury [] Angry [] Fearful [] Anxious [] Often cries [] Exhaustion [] Unable to work [] Unable to attend restorationist [] Unable to walk/stand [] Unable to read [] Unable to drive [] Unable to eat/drink [] Unable to sleep [] Unable to be with family [] Patient intubated [] Other: Summary Time spent with patient
[2021-05-16] MEDS: sodium chloride 0.9% 1,000 ML 75 ML IV (13:55)
[2021-05-16 14:52] LABS: Coronavirus Test Green County Not Detected
--- NOTE | 2021-05-16 15:03 | P.PN_ITS ---
Subjective Subjective: Interval history: Maria Eugenia reported she feels a little bit better. Still has some pain when she eats. Medications: Reviewed: Yes Vitals/I&O/Wt Last Vital Signs Temp 98.5 F 05/16/21 10:59 Pulse 76 05/16/21 10:59 Resp 18 05/16/21 14:02 BP 101/62 05/16/21 10:59 Pulse Ox 98 05/16/21 10:59 05/16/21 05/16/21 05/16/21 06:59 14:59 22:59 Intake Total 400 / 1262.5 592.5 / 592.5 Output Total 600 / 600 Balance -200 / 662.5 592.5 / 592.5 Weight last 48 hrs Weight 65.771 kg Weight 65.771 kg Physical Exam Narrative: EXAM NARRATIVE: General exam no apparent distress. Neck is supple no lymphadenopathy or thyromegaly Cardiovascular regular rate and rhythm without murmur Lungs clear no wheezing or crackles Abdomen tenderness, most notable in the epigastric area. Extremities no cyanosis clubbing or edema, cap refill brisk Data : 05/16/21 05:17 05/16/21 05:17 Micro: Microbiology 05/16/21 13:00 Occult Blood (FIT) - Final Stool Routine Collection A&P Assessment and plan (1) Gastroenteritis: Clinical picture is significant for enteritis. At this point there is no reason to repeat a CT scan abdomen and pelvis. Although enteritis generally self resolves, she has been ill since Wednesday(5 days) and reports a documented fever over 101 yesterday. Cipro and Flagyl was initiated. Await stool culture, parasite screen, C. difficile toxin. C. difficile is thought to be less likely. Covid can also cause enteritis, and although her rapid Covid is negative. A Covid PCR was performed and negative as well.. She has a close contact with Covid who she has been exposed to, her sibling. Isolation precautions have been initiated. Repeat laboratory tomorrow Continue Protonix 40 mg IV every 12 hours Pain and nausea control Decrease IV fluids She reports a chronic issue with abdominal pain, and has been told she has had ulcers in the past. She would be a candidate for an EGD as an outpatient. Stool Hemoccult negative. HIDA scan was ordered by admitting physician and normal as well. She currently has some significant anxiety regarding her ability to go home and not have recurrence of more severe abdominal discomfort as well as repetitive vomiting. She had had 3 emergency department visits prior to admission. I believe it is warranted to closely monitor her until tomorrow morning to make sure there is no recurrence at which time she could likely be discharged home, as well as await pending stool studies. Would consider outpatient referral for EGD. Status: Acute Additional A&P Information Full code Lovenox for DVT prophylaxis Attestations Medical Necessity Statement*: Needs continued hospitalization for supportive care and IV antibiotics secondary to enteritis. Coding Level of Care Code Acute Psychology Technician for Chg Fwd Diagnoses Gastroenteritis K52.9
[2021-05-16] MEDS: magnesium sulfate premix 2 GM/50 ML PIGGYBACK IV (17:29)
[2021-05-17] VITALS: BP 112/70; PULSE 90; RESP 17; TEMP 36.5; O2SAT 98
[2021-05-17 01:55] VITALS: RESP 16
[2021-05-17] MEDS: HYDROmorphone 1 mg/mL INJ 1 mL 0.4 MG IVP (01:55)
[2021-05-17] MEDS: pantoprazole 40 mg SDV IVP (02:04)
[2021-05-17] MEDS: ciprofloxacin 400 MG/200 ML PREMIX 200 MG IV (02:05)
[2021-05-17] MEDS: ondansetron 2 mg/ML SDV 2 mL 4 MG IVP (03:52)
[2021-05-17 04:00] VITALS: BP 126/72; PULSE 72; RESP 18; TEMP 36.6; O2SAT 97
[2021-05-17] MEDS: metroNIDAZOLE IV 500 MG/100 ML PREMIX 100 MG IV (06:00)
[2021-05-17 06:30] LABS: Basophils % 0.6 %; Eosinophils # 0.2 10^3/uL (0.0-0.8); Eosinophils % 4.2 %; Hematocrit 34.3 % (37.0-47.0); Hemoglobin 10.8 g/dL (11.5-15.3); Lymphocytes # 1.8 10^3/uL (0.8-4.8); Lymphocytes % 35.8 %; Mean Corpuscular HGB Conc 31.5 g/dL (30.0-36.0); Mean Corpuscular Hemoglobin 29.3 pg (28.0-34.0); Mean Corpuscular Volume 93.2 fL (81-99); Mean Platelet Volume 10.1 fL (7.4-10.4); Monocytes # 0.5 10^3/uL (0.2-0.9); Monocytes % 9.5 %; Neutrophils # 2.47 10^3/uL (1.8-7.7); Neutrophils % 49.7 %; Nucleated Red Blood Cells % 0 %; Platelet Count 234 10^3/cmm (130-400); Red Blood Count 3.68 10^6/uL (4.1-5.3); Red Cell Distribution Width 12.7 % (12.1-15.1)
[2021-05-17 07:00] LABS: Alanine Aminotransferase 9 U/L (0-33); Albumin Level 3.2 g/dL (3.5-5.2); Alkaline Phosphatase 68 IU/L (35-105); Anion Gap 11.2 (5-19); Aspartate Amino Transferase 14 U/L (0-32); Blood Urea Nitrogen 6 mg/dL (6-20); Calcium 7.9 mg/dL (8.5-10.5); Carbon Dioxide 28 mmol/L (22-29); Chloride 107 mmol/L (98-107); Globulin 1.8 g/dL (1.3-4.6); Glomerular Filtration Rate 122.8 mL/min (90-130); Glucose 83 mg/dL (65-115); Magnesium 1.6 mg/dL (1.7-2.3); Osmolality Calculated 293 mOsm/kg (285-295); Potassium 3.2 mmol/L (3.5-5.1); Sodium 143 mmol/L (136-145); Total Bilirubin 0.2 mg/dL (0.15-1.2)
[2021-05-17] MEDS: acetaminophen 325 mg Tablet 650 MG PO (07:45)
[2021-05-17 08:00] VITALS: BP 101/64; PULSE 78; RESP 18; TEMP 36.6; O2SAT 99
[2021-05-17] MEDS: enoxaparin 40 mg/0.4 mL Syringe SUBCUT (08:34)
--- NOTE | 2021-05-17 10:53 | P.DS_ITS ---
Discharge Providers Date of Admission: 05/15/21 08:33 Date of Discharge: May 17, 2021 Attending Provider at Admission: Florina Baker MD Attending Provider at Discharge: Sammy Nevarez MD Primary Care Provider: Ramila Petit APN Diagnoses at Discharge Discharge Diagnosis (1) Gastroenteritis: Status: Acute Reason for Visit Reason for Visit: cp,abdomen pain, n/v Hospital Course Hospital Course Maria Eugenia Parkinson is a 26 year old female with no known past medical history presented today with chief complaint of intractable nausea vomiting. Patient is stating that she ate Scottish food on Wednesday, she had shrimp soup, chicken and steak, in the evening she started experiencing abdominal pain which are associated with multiple episode of emesis and nausea. Her symptoms were not improving, she decided to come to the ED for further evaluation. In the ED her lab work was unremarkable, she was discharged home after CT abdomen pelvis. However she presented again due to intractable nausea vomiting within 12 hours this time oral contrast was given which showed stomach distention, umbilical hernia without any signs of obstruction she was discharged home with Phenergan. She is presenting back third time with similar complaint of intractable nausea vomiting. In total she has had more than 10 episodes of emesis which she describing as bilious/green color. She also experiencing green color diarrhea, fever 101. She is denying chest pain, shortness of breath. No recent camping. She has noticed blood in her vomitus and stool, dark-colored stool. Diagnostic work-up in the ER revealed normal CBC and BMP, patient looks dehydrated slightly hypotensive, received 2 L normal saline bolus Patient is still complaining of abdominal pain especially in her right upper quadrant Of note, patient has been using phentermine for last 1 year which he stopped a month ago, she lost 60 pounds. She was admitted to hospital for further management nausea/vomiting. She was started on IV hydration. Stool studies were sent which were negative for any infectious source. HIDA scan was done and was negative for any acute abnormalities. Patient responded well to the treatment and is able to tolerate clear to full liquid diet presently with occasional episode of nausea but no vomiting. Because of her close contact with a sibling who was tested positive for COVID-19 patient was status tested for Covid and PCR was negative. H. pylori antigen was negative. Patient is been discharged medically stable condition advised to follow-up with a primary care provider within next 1 week. She is advised to advance her diet gradually from full liquid to GI soft within next 1 week as tolerated. Patient is also advised to follow-up with surgery for endoscopy as an outpatient to rule out gastric erosions and H. pylori. Physical Exam Narrative: EXAM NARRATIVE: General exam no apparent distress. Neck is supple no lymphadenopathy or thyromegaly Cardiovascular regular rate and rhythm without murmur Lungs clear no wheezing or crackles Abdomen tenderness, most notable in the epigastric area. Extremities no cyanosis clubbing or edema, cap refill brisk Discharge Data Data Completed and Pending: Completed Studies During Hospitalization Category Date Time Status XR KUB [id number] Stat Exams 05/15/21 00:25 Completed XR chest 1V nancy ble [id number] Stat Exams 05/15/21 00:25 Completed NM hepatobiliary w phar* [id number] Rout ine Nuc Med 05/16/21 08:00 Completed Pending at discharge Category Date Time Status Clostridioides Di fficile PCR Routin e Lab 05/15/21 06:30 Received Enteric Bacterial Panel by PCR Rout ine Lab 05/15/21 08:33 Received Enteric Parasite Panel by PCR Routi ne Lab 05/15/21 08:33 Received Labs from last 24 hours 05/17/21 05/17/21 05/15/21 05:53 05:53 18:48 WBC 5.0 RBC 3.68 L Hgb 10.8 L Hct 34.3 L MCV 93.2 MCH 29.3 MCHC 31.5 RDW 12.7 Plt Count 234 MPV 10.1 Neut % (Auto) 49.7 Lymph % (Auto) 35.8 [place] % (Auto) 9.5 Eos % (Auto) 4.2 Baso % (Auto) 0.6 Neut # (Auto) 2.47 Lymph # (Auto) 1.8 [place] # (Auto) 0.5 Eos # (Auto) 0.2 Baso # (Auto) 0.0 Nucleated RBC % (a uto) 0 Nucleated RBCs # 0.0 Sodium 143 Potassium 3.2 L Chloride 107 Carbon Dioxide 28 Anion Gap 11.2 BUN 6 Creatinine 0.6 GFR Calculation 122.8 Glucose 83 Calculated Osmolal ity 293 Calcium 7.9 L Magnesium 1.6 L Total Bilirubin 0.2 AST 14 ALT 9 Alkaline Phosphata se 68 Total Protein 5.0 L Albumin 3.2 L Globulin 1.8 Nasal/Oral COVID-1 9 PCR Not detected Addt'l Data from Hospital Stay: Laboratory Results WBC 5.0 10^3/uL (4.0- 10.0) 05/17/21 05:53 RBC 3.68 10^6/uL (4.1 -5.3) L 05/17/21 05:53 Hgb 10.8 g/dL (11.5-1 5.3) L 05/17/21 05:53 Hct 34.3 % (37.0-47.0 ) L 05/17/21 05:53 MCV 93.2 fL (81-99) 05/17/21 05:53 MCH 29.3 pg (28.0-34. 0) 05/17/21 05:53 MCHC 31.5 g/dL (30.0-3 6.0) 05/17/21 05:53 RDW 12.7 % (12.1-15.1 ) 05/17/21 05:53 Plt Count 234 10^3/cmm (130 -400) 05/17/21 05:53 MPV 10.1 fL (7.4-10.4 ) 05/17/21 05:53 Neut % (Auto) 49.7 % 05/17/21 05:53 Lymph % (Auto) 35.8 % 05/17/21 05:53 [place] % (Auto) 9.5 % 05/17/21 05:53 Eos % (Auto) 4.2 % 05/17/21 05:53 Baso % (Auto) 0.6 % 05/17/21 05:53 Neut # (Auto) 2.47 10^3/uL (1.8 -7.7) 05/17/21 05:53 Lymph # (Auto) 1.8 10^3/uL (0.8- 4.8) 05/17/21 05:53 [place] # (Auto) 0.5 10^3/uL (0.2- 0.9) 05/17/21 05:53 Eos # (Auto) 0.2 10^3/uL (0.0- 0.8) 05/17/21 05:53 Baso # (Auto) 0.0 10^3/uL (0.0- 0.1) 05/17/21 05:53 Nucleated RBC % (a uto) 0 % 05/17/21 05:53 Nucleated RBCs # 0.0 /100WBC 05/17/21 05:53 Sodium 143 mmol/L (136-1 45) 05/17/21 05:53 Potassium 3.2 mmol/L (3.5-5 .1) L 05/17/21 05:53 Chloride 107 mmol/L (98-10 7) 05/17/21 05:53 Carbon Dioxide 28 mmol/L (22-29) 05/17/21 05:53 Anion Gap 11.2 (5-19) 05/17/21 05:53 BUN 6 mg/dL (6-20) 05/17/21 05:53 Creatinine 0.6 mg/dL (0.5-0. 9) 05/17/21 05:53 GFR Calculation 122.8 mL/min (90- 130) 05/17/21 05:53 Glucose 83 mg/dL (65-115) 05/17/21 05:53 Calculated Osmolal ity 293 mOsm/kg (285- 295) 05/17/21 05:53 Lactate 0.8 mmol/L (0.5-2 .2) 05/15/21 00:42 Calcium 7.9 mg/dL (8.5-10 .5) L 05/17/21 05:53 Magnesium 1.6 mg/dL (1.7-2. 3) L 05/17/21 05:53 Total Bilirubin 0.2 mg/dL (0.15-1 .2) 05/17/21 05:53 AST 14 U/L (0-32) 05/17/21 05:53 ALT 9 U/L (0-33) 05/17/21 05:53 Alkaline Phosphata se 68 IU/L (35-105) 05/17/21 05:53 Troponin T Baselin e 6 ng/L (0-10) 05/15/21 00:42 Troponin T 120 Min [place] 6.00 ng/L (0-10) 05/15/21 02:36 Delta Troponin T 0 ABS# (0-10) 05/15/21 02:36 Total Protein 5.0 g/dL (6.6-8.7 ) L 05/17/21 05:53 Albumin 3.2 g/dL (3.5-5.2 ) L 05/17/21 05:53 Globulin 1.8 g/dL (1.3-4.6 ) 05/17/21 05:53 Lipase 27 U/L (13-60) 05/15/21 00:42 Procalcitonin 0.02 ng/mL (0-0.5 ) 05/15/21 00:42 HCG, Qual Negative (Negati ve) 05/15/21 00:42 Nasal/Oral COVID-1 9 PCR Not detected 05/15/21 18:48 SARS-CoV-2 Ag (Rap id) Negative (Negati ve) 05/15/21 01:16 Impressions Chest X-Ray 05/15/21 00:25 IMPRESSION: No acute findings. KUB X-Ray 05/15/21 00:25 IMPRESSION: No acute findings. Hepatobiliary Scan Nuclear Medicine 05/16/21 08:00 IMPRESSION: 1. Normal HIDA scan. 2. Normal gallbladder ejection fraction. Vitals: Last Vital Signs Temp 97.9 F 05/17/21 08:00 Pulse 78 05/17/21 08:00 Resp 18 05/17/21 08:00 BP 101/64 05/17/21 08:00 Pulse Ox 99 05/17/21 08:00 Discharge Plan Discharge Patient Disposition: Home Condition: Stable Prescriptions: New ciprofloxacin HCl [Cipro] 500 mg tablet 500 mg PO BID 7 Days Qty: 14 RF: 0 metronidazole [Flagyl] 500 mg tablet 500 mg PO BID 7 Days Qty: 14 RF: 0 Continued metoclopramide HCl [Reglan] 10 mg tablet 10 mg PO Q6H PRN (Reason: nausea and vomiting) Qty: 20 RF: 0 Hold Instructions: Resume on 05/28/21. promethazine 25 mg tablet 25 mg PO QID PRN (Reason: nausea and vomiting) Qty: 20 RF: 0 hydrocodone-acetaminophen 5-325 mg tablet 1 tab PO Q6H PRN (Reason: pain) Qty: 15 RF: 0 Tylenol Extra Strength 500 mg Tablet 1,000 mg PO PRN RF: 0 omeprazole 20 mg capsule,delayed release(DR/EC) 20 mg PO DAILY RF: 0 Discharge Orders: Discharge Order (Routine); Ordered 05/17/21 Ordered By: Sammy Nevarez Referrals: Conor Leblanc MD [Physician] - 4-7 days (Possible endoscopy for persistent/recurrent episodes of nausea and vomiting to rule out gastric erosions/H. pylori infection.) Daamso,SOLOMON Mcgrath [Primary Care Provider] - 4-7 days Discharge Diet: Advance as tolerated and Full LIquid Discharge Activity: Resume usual activity Patient Instructions: Opioid Safety Activity Restrictions/Additional Instructions: Please advance diet gradually. Take full liquid diet including broth for now for next few days advancing to GI soft/brat diet which involves applesauce, mashed potatoes, toast gradually. Take small frequent meals. If you have further nausea or vomiting take at least 500 cc of Gatorade daily. Please present back to the ER if you have persistent vomiting. Please follow-up with surgery for endoscopy to rule out gastric ulcer/erosion and H. pylori infection. Discharge Attestations Time Spent in Discharge Care*: greater than 30 min Specific Discharge Activities: educating patient, educating and/or supporting family/caregiver, discussing with ed case manager/social workers/dc planners, documenting/other paperwork and evaluating patient/reviewing data Status at Discharge: Cognitive status at discharge: cognitively intact , Behavioral status at discharge: cooperative , Functional status at discharge: independent ambulation Overall status at discharge: patient is back to baseline Quality Metrics Clinical Quality Measures During this hospital stay, did patient experience: None Coding Level of Care Code Acute [facility] DC note Diagnoses Gastroenteritis K52.9
[2021-05-17 10:54] VITALS: BP 110/75; PULSE 77; RESP 16; TEMP 36.5; O2SAT 98
[2021-05-17 12:33] LABS: H. Pylori IgG Antibody Negative (Negative)
[2021-05-17 15:30] VITALS: BP 110/75; PULSE 77; RESP 16; TEMP 36.5; O2SAT 98
--- NOTE | 2021-05-17 15:31 | PC.NURSE ---
IV removed intact. Patient tolerated well. Reviewed patient discharge with patient. Patient verbalized understanding of discharge instructions. Patient is A&Ox3. Respirations even and non-labored on room air. Patient wheel chaired to private car.
== END 2021-05-17 15:00 | disposition home or self-care (01) ==
LOC: ER 05-15 02:53 → ER IP 05-15 10:12 → MEDSURG 05-15 17:52
PROVIDERS: Internal Medicine; Admitting Provider Internal Medicine; Emergency Provider Emergency Medicine; PCP Nurse Practitioner Family; Visit Provider Student in an Organized Health Care Education/Training Program
DX: K52.9 Noninfective gastroenteritis and colitis, unspecified (principal)
CPT/HCPCS: 36415; 71045; 74018; 78227; 80053; 82274; 83605; 83690; 83735; 84145; 84484; 84703; 85025; 86677; 87426; 87493; 87506; 87635; 93005; 96361; 96365; 96367; 96372; 96375; 96376; 99285; A9537; C9113; G0378; J0744; J1100; J1170; J1200; J1650; J2405; J2765; J3475; J7030; S0030

== ENCOUNTER → 2021-05-29 16:20 | Outpatient (BNVA) | payer MEDICAID, SELFPAY | PROVIDERS: PCP Nurse Practitioner Family; Visit Provider Family Medicine | DX: Z20.822 Contact with and (suspected) exposure to COVID-19 (principal) | CPT/HCPCS: 87426; 87635 ==

== ENCOUNTER 2021-06-10 09:04 | Outpatient (CLI) | payer MEDICAID, SELFPAY ==
--- NOTE | 2021-06-10 09:20 | XRR_ITS ---
PROCEDURE INFORMATION: Exam: XR Left Hand Exam date and time: 06/10/2021 9:20 AM Age: 26 years old Clinical indication: Pain and injury or trauma; Other: Shut hand in door; Fingers and hand; Left; Blunt trauma (contusions or hematomas); Hand and finger; Index finger and middle finger and ring finger; Finger(s) and hand; Injury date: 06/08/21; Injury details: Trauma 06/08/21. Shut hand(3rd finger) in door. C/O pain, bruising, swelling lt hand dannielle 2,3.4. Fingers; Additional info: Left hand-finger pain and swelling-trauma TECHNIQUE: Imaging protocol: XR Left hand. Views: 3 or more views. COMPARISON: No relevant prior studies available. FINDINGS: Bones/joints: No acute bony injury or malalignment in the visualized left hand. Soft tissues: Mild soft tissue swelling without radiopaque foreign body. XR/XR hand LT min 3V* [id number] IMPRESSION: No acute bony injury or malalignment in the visualized left hand.
== END 2021-06-10 09:05 | disposition home or self-care (01) ==
PROVIDERS: PCP Nurse Practitioner Family; Visit Provider Nurse Practitioner Family
DX: M79.645 Pain in left finger(s) (principal); M79.89 Other specified soft tissue disorders
CPT/HCPCS: 73130

== ENCOUNTER → 2021-06-11 09:36 | Outpatient (BNVA) | payer MEDICAID, SELFPAY | PROVIDERS: PCP Nurse Practitioner Family; Visit Provider Family Medicine | DX: Z20.828 Contact with and (suspected) exposure to other viral communicable diseases (principal) | CPT/HCPCS: 87635 ==

== ENCOUNTER 2021-06-11 21:23 | Emergency (ER) | payer MEDICAID, SELFPAY ==
--- NOTE | 2021-06-11 21:28 | XRR_ITS ---
PROCEDURE INFORMATION: Exam: XR Chest Exam date and time: 06/11/2021 9:28 PM Age: 26 years old Clinical indication: Cough and fever and shortness of breath TECHNIQUE: Imaging protocol: XR of the chest. Views: 1 view. COMPARISON: CR (CHEST, ) 05/15/2021 12:47 AM FINDINGS: Lungs: Unremarkable. No consolidation. Pleural spaces: Unremarkable. No pleural effusion. No pneumothorax. Heart/Mediastinum: Unremarkable. No cardiomegaly. Bones/joints: Unremarkable. XR/XR chest 1V portable [id number] IMPRESSION: No acute findings.
[2021-06-11 21:36] VITALS: BP 118/79; PULSE 101; TEMP 37.4; O2SAT 96; BMI 28.3
--- NOTE | 2021-06-11 22:24 | ED_ITS ---
HPI - COVID General: Chief Complaint: COVID symptoms Stated Complaint: Possible Covid\Chest Pain\Fever Time Seen by Provider: 06/11/21 21:32 Source: patient Mode of arrival: ambulatory Limitations: no limitations Triage information: Has fever, cough or shortness of breath . Exposure to COVID + person last 14 days History of Present Illness: HPI Narrative: 26-year-old female who states she is concerned she may have Covid. 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 States that over the last 2 days she has been having high fevers cough body aches congestion. States that tonight her fever worsened was up to 103 and started having severe chest pain as well. Denies any worsening improving factors. Denies any radiation of her pain. COVID 19 common symptoms: positive fever(s), chills and body aches; negative dyspnea, headache(s), throat pain, nausea, vomiting or diarrhea COVID 19 other sytmptoms: positive chest pain COVID Results: SARS-CoV-2 Antigen (Rapid) Positive (Negative) H 06/11/21 21:57 06/11/21 Nasal/Oral Coronavirus 2019 PCR Not detected 05/29/21 16:20 05/29/21 Review of Systems Const: Reports: fever(s), chills and body aches Eyes: Denies: blurry vision or eye discomfort ENMT: Denies: throat pain or dental pain Card: Reports: chest pain Resp: Denies: dyspnea GI: Denies: abdominal pain, nausea, vomiting or diarrhea : Denies: dysuria Musc: Denies: neck pain or back pain Skin/Breast: Denies: rash Neuro: Denies: headache(s) Psych: Denies: depression Carlo/Lymph: Denies: easy bruising All/Imm: Denies: urticaria PFSH ED PFSH: Medical History Bleeding in early Surgical History H/O dilation and curettage 09/05/2020- suction D&C performed by Dr. Leung at [facility] No history of previous surgery Family History Grandmother Clotting disorder maternal Diabetes maternal Father Stroke Family/Other Breast cancer maternal aunt Denies family history of Colon cancer Ovarian cancer Heart disease Hyperlipidemia Anesthesia complication Bleeding disorder Hypertension Uterine cancer Thyroid condition Social History Smoking and tobacco status: never smoked Second hand smoke exposure: No Smoking risk assessment/counseling performed?: No Alcohol intake: former Former alcohol use details: prior to Desire information about alcohol rehabilitation?: No Counseling given: No Desire information about substance/drug rehabilitation?: No Counseling given: No Adopted: No Caregiver/support person: No Lives independently: Yes Household members: spouse Housing: House Marital status: Number of children: 2 service: No Current occupational status: employed Current occupation: [employer] Pets and animals: No History of recent travel: No Leisure activites: exercise Current gender identity: Female Female Reproductive History: Date of last menstrual period: 05/15/21 Physical Exam Const: COMMON NORMALS: no acute distress, patient oriented x3 and healthy appearing HENMT: COMMON NORMALS: normocephalic and atraumatic HEAD & SCALP: normocephalic and atraumatic Eye: COMMON NORMALS: Equal, round and reactive pupils present and EOMs intact bilaterally PUPIL: Yes Equal, round and reactive pupils present Neck/C-Spine: COMMON NORMALS: full ROM and supple Chest: COMMONS NORMALS: normal inspection of the chest and normal palpation of entire chest wall Resp: COMMON NORMALS: normal respiratory effort, No retractions, No use of accessory muscles and clear to auscultation bilaterally AUSCULTATION: clear to auscultation bilaterally Cardio: COMMON NORMALS: regular rate, regular rhythm and No murmurs present (Cardio) RATE: regular rate RHYTHM: regular rhythm GI: COMMON NORMALS: Normal to inspection, nondistended, normoactive bowel sounds present, Soft to palpation, non-tender and no masses PALPATION: Yes Soft to palpation Extremity: COMMON NORMALS: normal to inspection and full ROM Neuro: COMMON NORMALS: patient oriented x3, moves all extremities and no focal motor deficits Psych: COMMON NORMALS: mental status grossly normal, Normal thought process present and cooperative THOUGHT PROCESS: Normal thought process present Skin: COMMON NORMALS: no rashes or lesions noted and no wounds GENERAL SKIN EXAM: no rashes or lesions noted Course Vital Signs: Vital signs: Vital Signs Temperature 99.3 F 06/11/21 21:36 Pulse Rate 101 H 06/11/21 21:36 Blood Pressure 118/79 06/11/21 21:36 Pulse Oximetry 99 06/11/21 22:42 MDM - COVID MDM Narrative: Medical decision making narrative: Patient presents here with Covid. She is well-appearing here in no respiratory distress. X-ray and EKG are normal. She is stable for discharge is to follow-up with PCP and return if worsening. She understands agrees to plan. Lab Data: Labs: Lab Results 06/11/21 06/11/21 06/11/21 Range/Units 21:57 22:25 22:25 WBC 3.6 L (4.0-10.0) 10^3/ uL RBC 3.95 L (4.1-5.3) 10^6/u L Hgb 11.3 L (11.5-15.3) g/dL Hct 35.9 L (37.0-47.0) % MCV 90.9 (81-99) fl MCH 28.6 (28.0-34.0) pg MCHC 31.5 (30.0-36.0) g/dL RDW 12.9 (12.1-15.1) % Plt Count 253 (130-400) 10^3/c mm MPV 9.7 (7.4-10.4) fL Neut % (Auto) 59.1 % Lymph % (Auto) 22.3 % [place] % (Auto) 16.9 % Eos % (Auto) 0.3 % Baso % (Auto) 1.1 % Neut # (Auto) 2.10 (1.8-7.7) 10^3/u L Lymph # (Auto) 0.8 (0.8-4.8) 10^3/u L [place] # (Auto) 0.6 (0.2-0.9) 10^3/u L Eos # (Auto) 0.0 (0.0-0.8) 10^3/u L Baso # (Auto) 0.0 (0.0-0.1) 10^3/u L Nucleated RBC % (a uto) 0 % Nucleated RBCs # 0.0 /100WBC Sodium 138 (136-145) mmol/L Potassium 3.4 L (3.5-5.1) mmol/L Chloride 102 (98-107) mmol/L Carbon Dioxide 25 (22-29) mmol/L Anion Gap 14.4 (5-19) BUN 4 L (6-20) mg/dL Creatinine 0.5 (0.5-0.9) mg/dL GFR Calculation 151.6 H (90-130) mL/min Glucose 85 (65-115) mg/dL Calculated Osmolal ity 282 L (285-295) mOsm/k g Calcium 8.9 (8.5-10.5) mg/dL Total Bilirubin 0.2 (0.15-1.2) mg/dL AST 15 (0-32) U/L ALT 8 (0-33) U/L Alkaline Phosphata se 106 H (35-105) IU/L Total Protein 6.9 (6.6-8.7) g/dL Albumin 4.2 (3.5-5.2) g/dL Globulin 2.7 (1.3-4.6) g/dL SARS-CoV-2 Ag (Rap id) Positive H (Negative) Imaging Data: CXR: Attestation: I personally reviewed and interpreted this imaging study as follows: My impression: no acute abnormality EKG Data: EKG 1: Attestation: I personally reviewed and interpreted this EKG as follows: EKG interpretation date: 07/16/21 EKG interpretation time: 21:50 Interpretation: sinus tach hr [address] or t wave abnormalities qrs 74 qtc 365 COVID Results: SARS-CoV-2 Antigen (Rapid) Positive (Negative) H 06/11/21 21:57 06/11/21 Nasal/Oral Coronavirus 2019 PCR Not detected 05/29/21 16:20 05/29/21 Discharge Plan Discharge Patient Disposition: Home Clinical Impression: COVID-19 Condition: Stable Prescriptions: New ondansetron 4 mg tablet,disintegrating 4 mg PO Q6H PRN (Reason: nausea and vomiting) Qty: 14 RF: 0 No Action metoclopramide HCl [Reglan] 10 mg tablet 10 mg PO Q6H PRN (Reason: nausea and vomiting) Qty: 20 RF: 0 Hold Instructions: Resume on 05/28/21. promethazine 25 mg tablet 25 mg PO QID PRN (Reason: nausea and vomiting) Qty: 20 RF: 0 Tylenol Extra Strength 500 mg Tablet 1,000 mg PO PRN RF: 0 omeprazole 20 mg capsule,delayed release(DR/EC) 20 mg PO DAILY RF: 0 magnesium chloride 64 mg tablet,delayed release (DR/EC) 64 mg PO BID Qty: 30 RF: 0 Discharge Orders: Discharge ED (Routine); Ordered 06/11/21 Ordered By: Qi Darling Referrals: Petit,AMY McgrathN [Primary Care Provider] - 1-3 days Discharge Diet: Advance as tolerated Discharge Activity: Resume usual activity Patient Instructions: Viral Syndrome (ED) Coding Level of Care Code ED Registration Officer for Lexig Fwd Exam Comprehensive
[2021-06-11 22:31] LABS: Basophils % 1.1 %; Eosinophils % 0.3 %; Hematocrit 35.9 % (37.0-47.0); Hemoglobin 11.3 g/dL (11.5-15.3); Lymphocytes # 0.8 10^3/uL (0.8-4.8); Lymphocytes % 22.3 %; Mean Corpuscular HGB Conc 31.5 g/dL (30.0-36.0); Mean Corpuscular Hemoglobin 28.6 pg (28.0-34.0); Mean Corpuscular Volume 90.9 fl (81-99); Mean Platelet Volume 9.7 fL (7.4-10.4); Monocytes # 0.6 10^3/uL (0.2-0.9); Monocytes % 16.9 %; Neutrophils % 59.1 %; Nucleated Red Blood Cells % 0 %; Platelet Count 253 10^3/cmm (130-400); Red Blood Count 3.95 10^6/uL (4.1-5.3); Red Cell Distribution Width 12.9 % (12.1-15.1); White Blood Count 3.6 10^3/uL (4.0-10.0)
[2021-06-11 22:36] LABS: SARS Covid-2 Antigen Positive (Negative)
[2021-06-11] MEDS: ondansetron 2 mg/ML SDV 2 mL 4 MG IVP (22:40)
[2021-06-11] MEDS: sodium chloride 0.9% 1,000 ML 999 ML IV (22:40)
[2021-06-11] MEDS: ketorolac 30 mg/mL INJ IVP (22:40)
[2021-06-11 22:42] VITALS: O2SAT 99
[2021-06-11 22:53] LABS: Alanine Aminotransferase 8 U/L (0-33); Albumin Level 4.2 g/dL (3.5-5.2); Alkaline Phosphatase 106 IU/L (35-105); Anion Gap 14.4 (5-19); Aspartate Amino Transferase 15 U/L (0-32); Blood Urea Nitrogen 4 mg/dL (6-20); Calcium 8.9 mg/dL (8.5-10.5); Carbon Dioxide 25 mmol/L (22-29); Chloride 102 mmol/L (98-107); Globulin 2.7 g/dL (1.3-4.6); Glomerular Filtration Rate 151.6 mL/min (90-130); Glucose 85 mg/dL (65-115); Osmolality Calculated 282 mOsm/kg (285-295); Potassium 3.4 mmol/L (3.5-5.1); Sodium 138 mmol/L (136-145); Total Bilirubin 0.2 mg/dL (0.15-1.2); Total Protein 6.9 g/dL (6.6-8.7)
[2021-06-11 23:40] VITALS: BP 110/76; PULSE 73; RESP 16; O2SAT 97
[2021-06-12] VITALS: BP 101/74; PULSE 75; RESP 16; O2SAT 96
[2021-06-12 00:40] VITALS: BP 111/59; PULSE 76; RESP 16; O2SAT 98
[2021-06-12 00:54] VITALS: PULSE 75; RESP 16
== END 2021-06-12 00:45 | disposition home or self-care (01) ==
PROVIDERS: Emergency Provider Emergency Medicine; PCP Nurse Practitioner Family
DX: U07.1 COVID-19 (principal)
CPT/HCPCS: 71045; 80053; 85025; 87426; 96361; 96374; 96375; 99283; J1885; J2405; J7030

== ENCOUNTER 2021-06-17 01:16 | Emergency (ER) | payer MEDICAID, SELFPAY ==
[2021-06-17 01:43] VITALS: BP 111/78; PULSE 78; RESP 28; TEMP 37.7; O2SAT 100; BMI 27.3
[2021-06-17 01:49] VITALS: O2SAT 100
--- NOTE | 2021-06-17 02:13 | XR_ITS ---
WS: [id number] Portable AP upright chest, 06/17/2021 Clinical Data: covid + Comparison: Portable chest, 06/11/2021. Findings: No nodules, masses or effusions are seen. The heart is normal. The pulmonary vascularity is not increased. No pneumothorax is seen. There may be minimal patchy peripheral opacity at the right costophrenic angle. There are decorative items overlying both breasts. XR/XR chest 1V portable [id number] Impression: Minimal patchy opacity at right costophrenic angle which could represent atelec tasis and/or pneumonia.
--- NOTE | 2021-06-17 02:15 | W.ED.COVID ---
HPI - COVID General: Chief Complaint: COVID symptoms Stated Complaint: covid +/sob/cp Time Seen by Provider: 06/17/21 02:14 Triage information: Has fever, cough or shortness of breath. Exposure to COVID + person last 14 days History of Present Illness: HPI Narrative: Patient complains of worsening Covid symptoms. Has pain with deep inspiration left side of her lungs. Still running a fever. Has been 9 to 10 days post Covid symptoms. MD complaint: known COVID positive Prior covid testing: yes, results known Prior testing date: 06/11/21 COVID 19 common symptoms: positive fever(s), chills, cough, dyspnea, body aches and headache(s); negative throat pain, nasal congestion, nausea or vomiting COVID 19 other sytmptoms: negative chest pain Severity: moderate COVID Results: SARS-CoV-2 Antigen (Rapid) Positive (Negative) 06/11/21 21:57 06/11/21 Nasal/Oral Coronavirus 2019 PCR Detected H 06/11/21 09:36 06/11/21 Review of Systems Const: Reports: fever(s), chills and body aches Eyes: Denies: change in vision or blurry vision ENMT: Denies: throat pain or nasal congestion Card: Denies: chest pain or dyspnea on exertion Resp: Reports: dyspnea GI: Denies: abdominal pain, nausea or vomiting Musc: Denies: extremity pain Skin/Breast: Denies: rash Neuro: Reports: headache(s) Psych: Denies: anxiety or depression Carlo/Lymph: Denies: easy bruising PFSH ED PFSH: Medical History Bleeding in early Surgical History H/O dilation and curettage 09/05/2020- suction D&C performed by Dr. Leung at [facility] No history of previous surgery Family History Grandmother Clotting disorder maternal Diabetes maternal Father Stroke Family/Other Breast cancer maternal aunt Denies family history of Colon cancer Ovarian cancer Heart disease Hyperlipidemia Anesthesia complication Bleeding disorder Hypertension Uterine cancer Thyroid condition Social History (Reviewed 08/11/21 @ 14:48 by JUNAID Rhodes Smoking and tobacco status: never smoked Second hand smoke exposure: No Smoking risk assessment/counseling performed?: No Alcohol intake: former Former alcohol use details: prior to Desire information about alcohol rehabilitation?: No Counseling given: No Desire information about substance/drug rehabilitation?: No Counseling given: No Adopted: No Caregiver/support person: No Lives independently: Yes Household members: spouse Housing: House Marital status: Number of children: 2 service: No Current occupational status: employed Current occupation: [employer] Pets and animals: No History of recent travel: No Leisure activites: exercise Current gender identity: Female Female Reproductive History: Date of last menstrual period: 06/13/21 Physical Exam Const: COMMON NORMALS: no acute distress, average body habitus and patient oriented x3 HENMT: COMMON NORMALS: normocephalic HEAD & SCALP: normal to inspection and normocephalic FACE & SINUS: normal facial exam Eye: COMMON NORMALS: conjunctivae normal GENERAL EYE: appearance normal, both eyes and all related structures CONJUNCTIVA: Yes conjunctivae normal Neck/C-Spine: COMMON NORMALS: no JVD Chest: COMMONS NORMALS: normal inspection of the chest Resp: COMMON NORMALS: normal respiratory effort and clear to auscultation bilaterally AUSCULTATION: clear to auscultation bilaterally Cardio: COMMON NORMALS: no JVD, regular rate and regular rhythm RATE: regular rate RHYTHM: regular rhythm GI: COMMON NORMALS: Normal to inspection, nondistended, normoactive bowel sounds present Extremity: COMMON NORMALS: normal to inspection and full ROM Neuro: COMMON NORMALS: patient oriented x3 Course Vital Signs: Vital signs: Vital Signs Temperature 99.8 F H 06/17/21 01:43 Pulse Rate 78 06/17/21 01:43 Respiratory Rate 28 H 06/17/21 01:43 Blood Pressure 111/78 06/17/21 01:43 Pulse Oximetry 100 06/17/21 01:49 MDM - COVID COVID Results: SARS-CoV-2 Antigen (Rapid) Positive (Negative) H 06/11/21 21:57 06/11/21 Nasal/Oral Coronavirus 2019 PCR Detected H 06/11/21 09:36 06/11/21 Discharge Plan Discharge Prescriptions: No Action metoclopramide HCl [Reglan] 10 mg tablet 10 mg PO Q6H PRN (Reason: nausea and vomiting) Qty: 20 RF: 0 Hold Instructions: Resume on 05/28/21. promethazine 25 mg tablet 25 mg PO QID PRN (Reason: nausea and vomiting) Qty: 20 RF: 0 Tylenol Extra Strength 500 mg Tablet 1,000 mg PO PRN RF: 0 omeprazole 20 mg capsule,delayed release(DR/EC) 20 mg PO DAILY RF: 0 magnesium chloride 64 mg tablet,delayed release (DR/EC) 64 mg PO BID Qty: 30 RF: 0 ondansetron 4 mg tablet,disintegrating 4 mg PO Q6H PRN (Reason: nausea and vomiting) Qty: 14 RF: 0 Coding Level of Care Code ED Hospital Aide for Evan Childs
[2021-06-17] MEDS: acetaminophen 500 mg Tablet 1000 MG PO (03:15)
[2021-06-17] MEDS: dexamethasone 4 mg Tablet 10 MG PO (03:15)
[2021-06-17 03:19] VITALS: BP 118/88; PULSE 78; RESP 18; O2SAT 98
== END 2021-06-17 02:18 | disposition home or self-care (01) ==
PROVIDERS: Emergency Provider Nurse Practitioner Family; PCP Nurse Practitioner Family
DX: U07.1 COVID-19 (principal)
CPT/HCPCS: 71045; 99283; J8540

== ENCOUNTER 2021-08-12 17:47 | Outpatient (CLI) | payer MEDICAID, SELFPAY ==
[2021-08-12 18:09] LABS: HCG Qualitative Urine. Negative (Negative)
== END 2021-08-12 17:48 | disposition home or self-care (01) ==
PROVIDERS: PCP Nurse Practitioner Family; Visit Provider Dermatology
DX: Z79.899 Other long term (current) drug therapy (principal)
CPT/HCPCS: 81025

== ENCOUNTER 2021-09-02 09:46 | Outpatient (CLI) | payer MEDICAID, SELFPAY ==
[2021-09-02 10:49] LABS: Basophils # 0.1 10^3/uL (0.0-0.1); Eosinophils # 0.1 10^3/uL (0.0-0.8); Eosinophils % 1.7 %; Hematocrit 37.5 % (37.0-47.0); Hemoglobin 11.9 g/dL (11.5-15.3); Lymphocytes # 1.9 10^3/uL (0.8-4.8); Lymphocytes % 30.7 %; Mean Corpuscular HGB Conc 31.7 g/dL (30.0-36.0); Mean Corpuscular Hemoglobin 27.2 pg (28.0-34.0); Mean Corpuscular Volume 85.8 fl (81-99); Mean Platelet Volume 9.7 fL (7.4-10.4); Monocytes # 0.4 10^3/uL (0.2-0.9); Monocytes % 7.3 %; Neutrophils # 3.56 10^3/uL (1.8-7.7); Neutrophils % 59.1 %; Nucleated Red Blood Cells % 0 %; Platelet Count 345 10^3/cmm (130-400); Red Blood Count 4.37 10^6/uL (4.1-5.3); Red Cell Distribution Width 14.9 % (12.1-15.1)
[2021-09-02 11:45] LABS: Alanine Aminotransferase 9 U/L (0-33); Albumin Level 4.2 g/dL (3.5-5.2); Alkaline Phosphatase 87 IU/L (35-105); Anion Gap 14.2 (5-19); Aspartate Amino Transferase 16 U/L (0-32); Blood Urea Nitrogen 8 mg/dL (6-20); Calcium 9.2 mg/dL (8.5-10.5); Carbon Dioxide 28 mmol/L (22-29); Chloride 101 mmol/L (98-107); Globulin 2.7 g/dL (1.3-4.6); Glomerular Filtration Rate 122.8 mL/min (90-130); Glucose 94 mg/dL (65-115); Osmolality Calculated 286 mOsm/kg (285-295); Potassium 4.2 mmol/L (3.5-5.1); Sodium 139 mmol/L (136-145); Total Bilirubin 0.2 mg/dL (0.15-1.2); Total Protein 6.9 g/dL (6.6-8.7)
== END 2021-09-02 09:47 | disposition home or self-care (01) ==
PROVIDERS: PCP Nurse Practitioner Family; Visit Provider Dermatology
DX: Z79.899 Other long term (current) drug therapy (principal)
CPT/HCPCS: 36415; 80053; 81025; 85025

== ENCOUNTER 2021-09-15 14:36 | Outpatient (CLI) | payer MEDICAID, SELFPAY ==
[2021-09-15 15:08] LABS: HCG Qualitative Urine. Negative (Negative)
== END 2021-09-15 14:37 | disposition home or self-care (01) ==
PROVIDERS: PCP Nurse Practitioner Family; Visit Provider Dermatology
DX: L70.0 Acne vulgaris (principal); Z79.899 Other long term (current) drug therapy
CPT/HCPCS: 81025

== ENCOUNTER → 2021-10-20 12:05 | Outpatient (BNVA) | payer MEDICAID, SELFPAY | PROVIDERS: PCP Nurse Practitioner Family; Visit Provider Family Medicine | DX: Z20.828 Contact with and (suspected) exposure to other viral communicable diseases (principal) | CPT/HCPCS: 87635 ==

== ENCOUNTER 2021-10-30 11:03 | Emergency (ER) | payer OTHER, SELFPAY ==
[2021-10-30 11:19] VITALS: BP 124/87; PULSE 101; RESP 14; TEMP 36.4; O2SAT 99; BMI 28.3
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
[2021-10-30] MEDS: tetanus-diphtheria tox (adult) 0.5 mL SDV IM (11:39)
--- NOTE | 2021-10-30 11:48 | PC.NURSE ---
REVIEWED DISCHARGE INSTRUCTIONS WITH PATIENT, PATIENT VERBALIZES UNDERSTANDING OF ALL INSTRUCTIONS, TO GET LABS DRAWN AND FOLLOW UP WITH EMPLOYEE HEALTH, PATIENT AMBULATED FROM THE ED
[2021-10-30 14:33] LABS: Hepatitis C Virus Antibody Non-Reactive (Nonreactive)
[2021-10-30 14:42] LABS: HIV 1 & 2 Antibody Non-Reactive (Non-Reactiv); HIV 1 & 2 Antigen Non-Reactive (Non-Reactiv)
[2021-10-30 14:47] LABS: Hepatitis B Surface Antigen Non-Reactive (Nonreactive)
[2021-10-30 14:49] LABS: Hepatitis B Surface AB 3.5 (11.5-1000)
== END 2021-10-30 11:54 | disposition home or self-care (01) ==
PROVIDERS: Emergency Provider Physician Assistant; PCP Nurse Practitioner Family
DX: S61.231A Puncture wound without foreign body of left index finger without damage to nail, initial encounter (principal); W46.0XXA Contact with hypodermic needle, initial encounter; Y92.239 Unspecified place in hospital as the place of occurrence of the external cause; Y99.0 Civilian activity done for income or pay; Z23 Encounter for immunization
CPT/HCPCS: 36415; 86706; 86803; 87340; 87806; 90471; 90714; 99282

== ENCOUNTER 2021-11-24 08:27 | Outpatient (CLI) | payer OTHER, MEDICAID, SELFPAY ==
--- NOTE | 2021-11-24 08:35 | US_ITS ---
WS: [id number] RIGHT DIGITAL MAMMOGRAPHY WITH CAD CLINICAL INFORMATION: RT BR PAIN HISTORY: RIGHT breast lump. LEFT breast pain. COMPARISON: None. TECHNIQUE: 5 views of the right breast were obtained. FINDINGS: Scattered fibroglandular densities of the right breast. 8mm asymmetric density central RIGHT breast p artially compresses out on the spot compression views. This likely corresponds to findings on ultraso und. Intramammary lymph nodes upper outer RIGHT breast. No other suspicious abnormality. ULTRASOUND BREAST BILATERAL TECHNIQUE: Ultrasound right breast focused area of concern. CLINICAL INFORMATION: RT BR PAIN FINDINGS: Ultrasound RIGHT breast at the 12:00, 2:00, 3:00, 6:00, 8:00, 9:00 positions. Ultrasound RIGHT areola . Hypoechoic ovoid well-circumscribed lesion at the 2:00 position 3 cm from the nipple may represent a small fibroadenoma or fibroadenolipoma. This measures 6.7 x 3.9 x 7.5 mm in the area of palpable conc james. No other suspicious abnormality. Ultrasound LEFT breast at the 12:00 o'clock 6:00 9:00 positions. No suspicious abnormality in the LEF T breast. US/US breast BI complete [id number] IMPRESSION: BI-RADS: 3-Probably Benign FOLLOW UP: 6 Month Follow-up Recommend 6 month follow-up RIGHT breast diagnostic mammography and ultrasound with attention to the 2:00 palpable lesion.
--- NOTE | 2021-11-24 09:31 | MM_ITS ---
WS: [id number] RIGHT DIGITAL MAMMOGRAPHY WITH CAD CLINICAL INFORMATION: RT BR PAIN HISTORY: RIGHT breast lump. LEFT breast pain. COMPARISON: None. TECHNIQUE: 5 views of the right breast were obtained. FINDINGS: Scattered fibroglandular densities of the right breast. 8mm asymmetric density central RIGHT breast p artially compresses out on the spot compression views. This likely corresponds to findings on ultraso und. Intramammary lymph nodes upper outer RIGHT breast. No other suspicious abnormality. ULTRASOUND BREAST BILATERAL TECHNIQUE: Ultrasound right breast focused area of concern. CLINICAL INFORMATION: RT BR PAIN FINDINGS: Ultrasound RIGHT breast at the 12:00, 2:00, 3:00, 6:00, 8:00, 9:00 positions. Ultrasound RIGHT areola . Hypoechoic ovoid well-circumscribed lesion at the 2:00 position 3 cm from the nipple may represent a small fibroadenoma or fibroadenolipoma. This measures 6.7 x 3.9 x 7.5 mm in the area of palpable conc james. No other suspicious abnormality. Ultrasound LEFT breast at the 12:00 o'clock 6:00 9:00 positions. No suspicious abnormality in the LEF T breast. MM/[place] [id number] IMPRESSION: BI-RADS: 3-Probably Benign FOLLOW UP: 6 Month Follow-up Recommend 6 month follow-up RIGHT breast diagnostic mammography and ultrasound with attention to the 2:00 palpable lesion.
== END 2021-11-24 08:28 | disposition home or self-care (01) ==
PROVIDERS: PCP Nurse Practitioner Family; Visit Provider Nurse Practitioner
DX: N64.4 Mastodynia (principal); N63.11 Unspecified lump in the right breast, upper outer quadrant
CPT/HCPCS: 76641; 77065

== ENCOUNTER 2021-12-01 11:17 | Outpatient (CLI) | payer OTHER, SELFPAY ==
[2021-12-01 13:29] LABS: Adenovirus Not Detected (NOT DETECT); Chlamydia Pneumoniae Not Detected (NOT DETECT); Coronavirus 229E,HKU1,NL63,OC4 Not Detected (NOT DETECT); Human Metapneumovirus Not Detected (NOT DETECT); Human Rhinovirus/Enterovirus Not Detected (NOT DETECT); Influenza A Not Detected (NOT DETECT); Influenza A H1 Not Detected (NOT DETECT); Influenza A H1-2009 Not Detected (NOT DETECT); Influenza A H3 Not Detected (NOT DETECT); Influenza B Not Detected (NOT DETECT); Mycoplasma Pneumoniae Not Detected (NOT DETECT); Parainfluenza Virus Type 1 Not Detected (NOT DETECT); Parainfluenza Virus Type 2 Not Detected (NOT DETECT); Parainfluenza Virus Type 3 Not Detected (NOT DETECT); Parainfluenza Virus Type 4 Not Detected (NOT DETECT); Respiratory Syncytial Virus A Not Detected (NOT DETECT); Respiratory Syncytial Virus B Not Detected (NOT DETECT); SARS-COV-2 Not Detected (NOT DETECT)
== END 2021-12-01 11:18 | disposition home or self-care (01) ==
PROVIDERS: PCP Nurse Practitioner Family; Visit Provider Family Medicine
DX: J06.9 Acute upper respiratory infection, unspecified (principal); Z20.822 Contact with and (suspected) exposure to COVID-19
CPT/HCPCS: 87635

== ENCOUNTER 2021-12-04 12:12 | Emergency (ER) | payer OTHER, MEDICAID, SELFPAY ==
[2021-12-04 12:22] VITALS: BP 138/85; PULSE 82; RESP 16; TEMP 36.9; O2SAT 96; BMI 28.3
[2021-12-04 13:44] LABS: Basophils # 0.1 10^3/uL (0.0-0.1); Basophils % 0.7 %; Eosinophils # 0.1 10^3/uL (0.0-0.8); Eosinophils % 0.9 %; Hematocrit 40.1 % (37.0-47.0); Hemoglobin 12.8 g/dL (11.5-15.3); Lymphocytes # 1.8 10^3/uL (0.8-4.8); Lymphocytes % 18.1 %; Mean Corpuscular HGB Conc 31.9 g/dL (30.0-36.0); Mean Corpuscular Hemoglobin 28.3 pg (28.0-34.0); Mean Corpuscular Volume 88.7 fl (81-99); Mean Platelet Volume 9.9 fL (7.4-10.4); Monocytes # 0.6 10^3/uL (0.2-0.9); Monocytes % 6.5 %; Neutrophils # 7.11 10^3/uL (1.8-7.7); Neutrophils % 73.4 %; Nucleated Red Blood Cells % 0 %; Platelet Count 261 10^3/cmm (130-400); Red Blood Count 4.52 10^6/uL (4.1-5.3); Red Cell Distribution Width 14.2 % (12.1-15.1); White Blood Count 9.7 10^3/uL (4.0-10.0)
[2021-12-04 13:57] LABS: Add Urine Microscopic? NO; Charge for UA Resulting for Rev
[2021-12-04 14:00] LABS: HCG, Serum Qual Negative (Negative)
[2021-12-04 14:05] LABS: Bilirubin Urine Neg (Negative); Blood Urine Neg (Negative); Glucose Urine UA Norm (Normal); Ketones Urine Negative (Negative); Leukocyte Esterase Urine Negative (Negative); Nitrate Urine Negative (Negative); Protein Urine Neg (Negative); Sulfosalicylic Acid Urine Negative (Negative); Urine Appearance Clear (CLEAR); Urine Color Yellow (Yellow); Urobilinogen Urine Neg (Negative); pH Urine 8 (5-7)
--- NOTE | 2021-12-04 14:08 | CT_ITS ---
WS: [id number] CT ABDOMEN AND PELVIS WITH CONTRAST HISTORY: Diffuse abdominal pain with diarrhea TECHNIQUE: Imaging performed of the abdomen and pelvis with IV contrast. Single phase imaging of the abdomen. Coronal and sagittal reformats are submitted. All CT scans at [facility] use at [address] one of these dose optimization techniques: automated exposure control; mA and/or kV adjustment per patient size (includes targeted exams where dose is matched to clinical indication); or iterative re construction. IV CONTRAST: Omnipaque 300; 95 mL IV. Oral contrast: No DLP: 1199.4 mGy.cm COMPARISON: None available. Lower thorax: Lung bases are clear. Heart is normal size. No hiatal hernia. Liver/biliary system: Normal size with no intrahepatic dilatation. Gallbladder: Normal. No gallstones or wall thickening. No pericholecystic fluid. Pancreas: Normal size pancreas and pancreatic duct. No adjacent inflammation. Spleen: Normal size spleen. No mass or infarct. Adrenal glands: Normal. Right kidney: Normal. Left kidney: Normal. Aorta: Normal. Lymphadenopathy: None. Free fluid: None. GI tract: Unremarkable. No GI tract obstruction or significant mucosal thickening. Normal small bowel. Abdominal wall: Unremarkable abdominal wall. No hernia. Pelvis: Small free fluid could be physiologic. Normal size anteverted uterus. Ovaries are normal size and contain small follicles. Bones: Sclerotic focus in the LEFT superior acetabulum. CT/CT abdomen pelvis w con* [id number] IMPRESSION: 1. Normal appendix. 2. Small amount of physiologic free fluid in the pelvis and small bilateral ov [place] follicles. 3. No GI tract obstruction.
[2021-12-04 14:10] LABS: Alanine Aminotransferase 7 U/L (0-33); Albumin Level 4.6 g/dL (3.5-5.2); Alkaline Phosphatase 118 IU/L (35-105); Aspartate Amino Transferase 14 U/L (0-32); Blood Urea Nitrogen 10 mg/dL (6-20); Calcium 9.6 mg/dL (8.5-10.5); Carbon Dioxide 26 mmol/L (22-29); Chloride 102 mmol/L (98-107); Globulin 3.1 g/dL (1.3-4.6); Glomerular Filtration Rate 151.6 mL/min (90-130); Glucose 87 mg/dL (65-115); Lipase 23 U/L (13-60); Osmolality Calculated 282 mOsm/kg (285-295); Sodium 137 mmol/L (136-145); Total Bilirubin 0.4 mg/dL (0.15-1.2); Total Protein 7.7 g/dL (6.6-8.7)
--- NOTE | 2021-12-04 14:10 | ED_ITS ---
HPI - General Adult General: Chief complaint: General Medical Stated complaint: ADB pain, body aches Time Seen by Provider: 12/04/21 13:56 History of Present Illness: 26-year-old presents due to diffuse abdominal pain uvula is midline, no stridor, no induration under the tongue around neck, no signs of Manuel's angina. Since Wednesday. Denies any trouble swallowing. Denies any voice changes. Denies fevers or chills. Reports diffuse abdominal pain mild diarrhea without blood. Denies nausea or vomiting. Denies dysuria or pelvic discharge. Had similar episodes last year with unremarkable work-up. Review of Systems Narrative: - CONSTITUTIONAL: Denies weight loss, fever and chills. - HEENT: Denies changes in vision and hearing. - RESPIRATORY: Denies SOB and cough. - CV: Denies palpitations and CP. - GI: As above - : Denies dysuria and urinary frequency. - MSK: Denies myalgia and joint pain. - SKIN: Denies rash and pruritus. - NEUROLOGICAL: Denies headache, weakness, numbness and syncope. - PSYCHIATRIC: Denies suicidal ideation PFSH ED PFSH: Medical History Bleeding in early High risk medication use Surgical History H/O dilation and curettage 09/05/2020- suction D&C performed by Dr. Leung at [facility] No history of previous surgery Family History Grandmother Clotting disorder maternal Diabetes maternal Father Stroke Family/Other Breast cancer maternal aunt Denies family history of Colon cancer Ovarian cancer Heart disease Hyperlipidemia Anesthesia complication Bleeding disorder Hypertension Uterine cancer Thyroid condition Social History Second hand smoke exposure: No Smoking risk assessment/counseling performed?: No Alcohol intake: former Former alcohol use details: prior to Desire information about alcohol rehabilitation?: No Counseling given: No Desire information about substance/drug rehabilitation?: No Counseling given: No Adopted: No Caregiver/support person: No Lives independently: Yes Household members: spouse Housing: House Marital status: Number of children: 2 service: No Current occupational status: employed Current occupation: [employer] Pets and animals: No History of recent travel: No Leisure activites: exercise Current gender identity: Female Female Reproductive History: Date of last menstrual period: 06/13/21 Physical Exam Narrative: EXAM NARRATIVE: - GENERAL: Alert and oriented x 3. No acute distress. Well-nourished. - EYES: EOMI. Anicteric. - HENT: Atraumatic, no C-spine tenderness. Moist mucous membranes. No scleral icterus. No cervical lymphadenopathy. Uvula is midline, no stridor, no induration under the tongue around neck, no signs of Manuel's angina. - LUNGS: Clear to auscultation bilaterally. No accessory muscle use. Equal lung sounds bilaterally. No respiratory distress. - CARDIOVASCULAR: Regular rate and rhythm. No murmur. No JVD. - ABDOMEN: Soft, mild diffuse tenderness, non-distended. Negative CVA tenderness bilaterally, no rebound or guarding, negative Beasley sign. No palpable masses. - EXTREMITIES: No edema. Non-tender. - SKIN: No rashes or lesions. Warm. - NEUROLOGIC: No meningismus or focal neurological deficits. CN II-XII grossly intact. - PSYCHIATRIC: Cooperative. Appropriate mood and affect. Course Vital Signs: Vital signs: Vital Signs Temperature 98.5 F 12/04/21 12:22 Pulse Rate 82 12/04/21 12:22 Respiratory Rate 16 12/04/21 12:22 Blood Pressure 138/85 12/04/21 12:22 Pulse Oximetry 96 12/04/21 12:22 MDM - General Adult Medical Decision Making 26-year-old presents with sore throat and abdominal pain. No sign of deep tissue infection throat and not believe next imaging in this area is required at this time. Able to tolerate p.o. challenge there is no sign of airway compromise. Lab work unremarkable. Strep and Covid swabs are negative. No signs of intra-abdominal infection. CT of the abdomen pelvis is also unremarkable. Improved Tessalon Perles Toradol and Phenergan. Tolerated p.o. challenge. Prescription for Zofran Tessalon and Toradol provided. At this time I believe patient would be safe for discharge and outpatient follow-up. Return precautions provided. Plan was reviewed with the patient who expressed understanding. Questions answered. Patient will follow up with PCP. Patient discharged in stable condition. Lab Data : 12/04/21 13:35 12/04/21 13:35 Radiology Impressions Abdomen/Pelvis CT 12/04/21 14:08 IMPRESSION: 1. Normal appendix. 2. Small amount of physiologic free fluid in the pelvis and small bilateral ovarian follicles. 3. No GI tract obstruction. Laboratory Results WBC 9.7 10^3/uL (4.0-10.0) 12/04/21 13:35 RBC 4.52 10^6/uL (4.1-5.3) 12/04/21 13:35 Hgb 12.8 g/dL (11.5-15.3) 12/04/21 13:35 Hct 40.1 % (37.0-47.0) 12/04/21 13:35 MCV 88.7 fl (81-99) 12/04/21 13:35 MCH 28.3 pg (28.0-34.0) 12/04/21 13:35 MCHC 31.9 g/dL (30.0-36.0) 12/04/21 13:35 RDW 14.2 % (12.1-15.1) 12/04/21 13:35 Plt Count 261 10^3/cmm (130-400) 12/04/21 13:35 MPV 9.9 fL (7.4-10.4) 12/04/21 13:35 Neut % (Auto) 73.4 % 12/04/21 13:35 Lymph % (Auto) 18.1 % 12/04/21 13:35 Wright % (Auto) 6.5 % 12/04/21 13:35 Eos % (Auto) 0.9 % 12/04/21 13:35 Baso % (Auto) 0.7 % 12/04/21 13:35 Neut # (Auto) 7.11 10^3/uL (1.8-7.7) 12/04/21 13:35 Lymph # (Auto) 1.8 10^3/uL (0.8-4.8) 12/04/21 13:35 Wright # (Auto) 0.6 10^3/uL (0.2-0.9) 12/04/21 13:35 Eos # (Auto) 0.1 10^3/uL (0.0-0.8) 12/04/21 13:35 Baso # (Auto) 0.1 10^3/uL (0.0-0.1) 12/04/21 13:35 Nucleated RBC % (auto) 0 % 12/04/21 13:35 Nucleated RBCs # 0.0 /100WBC 12/04/21 13:35 Sodium 137 mmol/L (136-145) 12/04/21 13:35 Potassium 4.0 mmol/L (3.5-5.1) 12/04/21 13:35 Chloride 102 mmol/L (98-107) 12/04/21 13:35 Carbon Dioxide 26 mmol/L (22-29) 12/04/21 13:35 Anion Gap 13.0 (5-19) 12/04/21 13:35 BUN 10 mg/dL (6-20) 12/04/21 13:35 Creatinine 0.5 mg/dL (0.5-0.9) 12/04/21 13:35 GFR Calculation 151.6 mL/min (90-130) H 12/04/21 13:35 Glucose 87 mg/dL (65-115) 12/04/21 13:35 Calculated Osmolality 282 mOsm/kg (285-295) L 12/04/21 13:35 Calcium 9.6 mg/dL (8.5-10.5) 12/04/21 13:35 Total Bilirubin 0.4 mg/dL (0.15-1.2) 12/04/21 13:35 AST 14 U/L (0-32) 12/04/21 13:35 ALT 7 U/L (0-33) 12/04/21 13:35 Alkaline Phosphatase 118 IU/L (35-105) H 12/04/21 13:35 Total Protein 7.7 g/dL (6.6-8.7) 12/04/21 13:35 Albumin 4.6 g/dL (3.5-5.2) 12/04/21 13:35 Globulin 3.1 g/dL (1.3-4.6) 12/04/21 13:35 Lipase 23 U/L (13-60) 12/04/21 13:35 HCG, Qual Negative (Negative) 12/04/21 13:35 Urine Color Yellow (Yellow) 12/04/21 13:25 Urine Appearance Clear (CLEAR) 12/04/21 13:25 Urine pH 8 (5-7) H 12/04/21 13:25 Ur Specific [place] 1.010 (1.005-1.030) 12/04/21 13:25 Urine Protein Neg (Negative) 12/04/21 13:25 Urine Glucose (UA) Norm (Normal) 12/04/21 13:25 Urine Ketones Negative (Negative) 12/04/21 13:25 Urine Blood Neg (Negative) 12/04/21 13:25 Urine Nitrate Negative (Negative) 12/04/21 13:25 Urine Bilirubin Neg (Negative) 12/04/21 13:25 Prot Sulfosalicylic Acd Negative (Negative) 12/04/21 13:25 Urine Urobilinogen Neg mg/dL (Negative) 12/04/21 13:25 Ur Leukocyte Esterase Negative (Negative) 12/04/21 13:25 Urine Opiates Screen Negative ng/mL (Negative) 12/04/21 13:25 Ur Barbiturates Screen Negative ng/mL (Negative) 12/04/21 13:25 Ur Phencyclidine Scrn Negative ng/mL (Negative) 12/04/21 13:25 Ur Amphetamines Screen Negative ng/mL (Negative) 12/04/21 13:25 U Benzodiazepines Scrn Negative ng/mL (Negative) 12/04/21 13:25 Urine Cocaine Screen Negative ng/mL (Negative) 12/04/21 13:25 U Marijuana (THC) Screen Negative ng/mL (Negative) 12/04/21 13:25 SARS-CoV-2 Ag (Rapid) Negative (Negative) 12/04/21 14:23 Group A Strep Rapid Negative (Negative) 12/04/21 14:23 Discharge Plan Discharge Patient Disposition: Home Clinical Impression: Abdominal pain, Acute sore throat Condition: Stable Prescriptions: New benzonatate 200 mg capsule 200 mg PO TID PRN (Reason: cough) 3 Days Qty: 9 0RF Zofran 4 mg tablet 4 mg PO Q8H PRN (Reason: nausea and vomiting) 3 Days Qty: 5 0RF ketorolac 10 mg tablet 10 mg PO Q8H PRN (Reason: pain) 4 Days Qty: 10 0RF Discharge Orders: Discharge ED (Routine); Ordered 12/04/21 Ordered By: Anuj Carlisle Referrals: Petit,Ramila, ADVERTISING SUPERVISOR [Primary Care Provider] - 1-3 days Patient Instructions: Pharyngitis (ED), Acute Abdominal Pain (ED), Abdominal Pain (ED), Opioid Safety Coding Level of Care Code ED Poacher Wringer Operator for Evan Childs
[2021-12-04] MEDS: dicyclomine 20 mg Tablet PO (14:22)
[2021-12-04] MEDS: benzonatate 100 mg Capsule 200 MG PO (14:22)
[2021-12-04] MEDS: iohexol 300 mg/mL 100 mL Btl IV (14:33)
[2021-12-04 14:43] LABS: Amphetamines Screen Urine Negative (Negative); Barbiturates Screen Urine Negative (Negative); Benzodiazepines Screen Urine Negative (Negative); Cocaine Screen Urine Negative (Negative); Opiate Screen Urine Negative (Negative); PCP Screen Urine Negative (Negative); THC Screen Urine Negative (Negative)
[2021-12-04 14:43] LABS: Rapid Strep A Test Negative (Negative)
[2021-12-04 14:54] LABS: SARS Covid-2 Antigen Negative (Negative)
[2021-12-04] MEDS: diphenhydrAMINE 25 mg Capsule PO (16:36)
[2021-12-04] MEDS: ketorolac 30 mg/mL INJ IVP (16:36)
[2021-12-04] MEDS: promethazine 25 mg/mL SDV 1 mL IM (16:37)
[2021-12-04 17:58] VITALS: BP 106/69; PULSE 67; RESP 18; TEMP 36.6; O2SAT 99
[2021-12-04 18:00] VITALS: BP 106/69; PULSE 67; RESP 18; TEMP 36.6; O2SAT 100
== END 2021-12-04 18:09 | disposition home or self-care (01) ==
PROVIDERS: Physician Assistant; Emergency Provider Emergency Medicine; PCP Nurse Practitioner Family
DX: R10.9 Unspecified abdominal pain (principal); J02.9 Acute pharyngitis, unspecified; Z20.822 Contact with and (suspected) exposure to COVID-19
CPT/HCPCS: 74177; 80053; 80306; 81003; 83690; 84703; 85025; 87081; 87426; 87880; 96372; 96374; 99284; J1885; J2550; Q9967

== ENCOUNTER 2022-01-25 02:04 | Emergency (ER) | payer OTHER, MEDICAID, SELFPAY ==
[2022-01-25 02:04] VITALS: BP 143/94; PULSE 90; RESP 20; TEMP 36.6; O2SAT 100; BMI 28.3
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
[2022-01-25 02:13] VITALS: RESP 21; O2SAT 99
[2022-01-25] MEDS: HYDROmorphone 1 mg/mL INJ 1 mL IVP (02:13)
[2022-01-25] MEDS: ondansetron 2 mg/ML SDV 2 mL 4 MG IVP ×2 (02:13→03:03)
[2022-01-25 02:27] LABS: Basophils # 0.1 10^3/uL (0.0-0.1); Basophils % 0.5 %; Eosinophils # 0.1 10^3/uL (0.0-0.8); Eosinophils % 0.7 %; Hematocrit 40.3 % (37.0-47.0); Hemoglobin 12.9 g/dL (11.5-15.3); Lymphocytes # 2.2 10^3/uL (0.8-4.8); Lymphocytes % 16.3 %; Mean Corpuscular Hemoglobin 28.5 pg (28.0-34.0); Mean Corpuscular Volume 89.2 fl (81-99); Mean Platelet Volume 10.4 fL (7.4-10.4); Monocytes # 1.1 10^3/uL (0.2-0.9); Monocytes % 8.2 %; Neutrophils # 10.06 10^3/uL (1.8-7.7); Nucleated Red Blood Cells % 0 %; Platelet Count 271 10^3/cmm (130-400); Red Blood Count 4.52 10^6/uL (4.1-5.3); Red Cell Distribution Width 13.2 % (12.1-15.1); White Blood Count 13.6 10^3/uL (4.0-10.0)
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
[2022-01-25 02:39] LABS: HCG, Serum Qual Negative (Negative)
[2022-01-25 02:45] LABS: Alanine Aminotransferase 10 U/L (0-33); Albumin Level 4.4 g/dL (3.5-5.2); Alkaline Phosphatase 95 IU/L (35-105); Aspartate Amino Transferase 18 U/L (0-32); Blood Urea Nitrogen 11 mg/dL (6-20); Calcium 8.8 mg/dL (8.5-10.5); Carbon Dioxide 25 mmol/L (22-29); Chloride 104 mmol/L (98-107); Globulin 2.2 g/dL (1.3-4.6); Glomerular Filtration Rate 102.8 mL/min (90-130); Glucose 97 mg/dL (65-115); Osmolality Calculated 287 mOsm/kg (285-295); Sodium 139 mmol/L (136-145); Total Bilirubin 0.2 mg/dL (0.15-1.2); Total Protein 6.6 g/dL (6.6-8.7)
[2022-01-25] MEDS: iohexol 300 mg/mL 100 mL Btl IV (03:05)
[2022-01-25] MEDS: tetracaine 0.5% Op Soln 4 mL Btl 1 DROP EYE-LEFT (03:15)
[2022-01-25] MEDS: HYDROcodone-acetaminophen 5-325 mg Tablet 1 TAB PO (03:46)
[2022-01-25 04:00] VITALS: BP 106/74; PULSE 76; RESP 16; O2SAT 99
== END 2022-01-25 03:40 | disposition home or self-care (01) ==
PROVIDERS: Emergency Provider Emergency Medicine; PCP Nurse Practitioner Family
DX: M54.2 Cervicalgia (principal); V89.0XXA Person injured in unspecified motor-vehicle accident, nontraffic, initial encounter
CPT/HCPCS: 70450; 70486; 71260; 72125; 74177; 80053; 84703; 85025; 96374; 96375; 96376; 99283; J1170; J2405; Q9967

== ENCOUNTER 2022-02-05 06:25 | Day surgery (SDC) | payer OTHER, MEDICAID, SELFPAY ==
[2022-02-04 14:00] VITALS: BMI 28.3
[2022-02-05] VITALS (16 sets, daily range): BP systolic 88–116; BP diastolic 51–69; PULSE 64–79; RESP 15–22; TEMP 36.1–36.6; O2SAT 96–100
[2022-02-05 07:11] LABS: OR HCG Qualitative Urine Negative (Negative)
--- NOTE | 2022-02-05 07:27 | W.PM.OPSUD ---
Surgery/Procedure H&P Update DATE OF PROCEDURE: February 05, 2022 DATE H&P PERFORMED: 01/26/21 H&P UPDATE INFORMATION: I have examined patient prior to procedure and No changes to prior documentation PREOP DIAGNOSIS: Right breast mass, epigastric/RUQ pain PLANNED PROCEDURE: Operation Date: 02/05/22 08:00 Proposed Procedures p Breast Biopsy(Right) - Felipe Rosen MD s EGD(Not Applicable) - Felipe Rosen MD
--- NOTE | 2022-02-05 07:51 | P.ANESASSM_ITS ---
Pre-Anesthetic Assessment Height/Weight: Height 1.55 m Weight 68.039 kg Preop Diagnosis: Right breast mass, epigastric/RUQ pain Operation Date: 02/05/22 08:00 Proposed Procedures p Breast Biopsy(Right) - Felipe Rosen MD s EGD(Not Applicable) - Felipe Rosen MD Familial anesthetic complications: none Was Beta Roberto taken within 24 hours: N/A Was Clonidine taken within 24 hours: N/A Last intake: Intake Last Liquid Date 02/04/22 Last Liquid Time 23:30 Last Solid Date 02/05/22 Last Solid Time 23:30 Social No alcohol and No tobacco Exam oriented x 3 Airway Mallampati: Class I Dentition: full Pulmonary None reported CV/HEM None reported None reported Hepatic None reported GI None reported Metabolic None reported Musc/skel None reported Neuropsych None reported Anesthetic Plan ASA status: 1 Anesthesia: MAC Medications/Allergies Home Medications Medication Instructions Recorded Confirmed Last Taken Type citalopram 20 mg tablet (Celexa) 20 mg PO DAILY 02/04/22 02/04/22 01/28/22 History Allergies Allergy/AdvReac Type Severity Reaction Status Date / Time morphine Allergy ALGY-Hives Verified 10/30/21 11:19 [facility] Anesthesia Medical History Bleeding in early High risk medication use Surgical History H/O dilation and curettage 09/05/2020- suction D&C performed by Dr. Leung at [facility] No history of previous surgery Family History Grandmother Clotting disorder maternal Diabetes maternal Father Stroke Family/Other Breast cancer maternal aunt Denies family history of Colon cancer Ovarian cancer Heart disease Hyperlipidemia Anesthesia complication Bleeding disorder Hypertension Uterine cancer Thyroid condition Social History Second hand smoke exposure: No Smoking risk assessment/counseling performed?: No Alcohol intake: former Former alcohol use details: prior to Desire information about alcohol rehabilitation?: No Counseling given: No Desire information about substance/drug rehabilitation?: No Counseling given: No Adopted: No Caregiver/support person: No Lives independently: Yes Household members: spouse Housing: House Marital status: Number of children: 2 service: No Current occupational status: employed Current occupation: [employer] Pets and animals: No History of recent travel: No Leisure activites: exercise Current gender identity: Female Female Reproductive History Date of last menstrual period: 01/10/22 Data Anesthesia Cardiac Studies: No Data to Display
[2022-02-05] MEDS: sodium chloride 0.9% 1,000 ML 30 ML IV (07:56)
--- NOTE | 2022-02-05 08:25 | P.OP_ITS ---
Operative Report Date of procedure: February 05, 2022 Pre-op diagnosis: Preop Diagnosis 1. Right breast mass in the upper inner quadrant. 2. Epigastric/right upper quadrant pain. Post-op diagnosis: Same. Procedure done: 1. EGD with biopsy. 2. Right breast biopsy/lumpectomy. Specimens removed/disposition: 1. CLOtest from EGD. 2. Right breast mass. Surgeon: General Surgery Felipe Rosen MD Estimated blood loss: 2 Complications: None. Procedure: The patient was brought to the operating room and was placed in a supine position on the operating room table. A monitored anesthetic was induced. Esophagogastroduodenoscopy was carried out. The patient was found to have very mild gastritis and duodenitis. A CLOtest was performed. See endoscopy report for details. The right breast was then prepped and draped in a sterile fashion. The patient's right breast mass had been marked preoperatively with the assistance of the patient in the holding area. A combination of 1% lidocaine with 1 to 100,000 parts epinephrine and 0.5% bupivacaine was used for local anesthesia throughout the procedure. A somewhat tangential incision was carried out in the upper inner quadrant of the breast in parallel with the skin lines. Cautery was used to enter the breast tissue. The mass in the breast seemed to be a combinat ion of fibrocystic appearing tissue and architectural distortion. This area was grasped with a an Allis clamp and was completely removed using a combination of cautery and sharp dissection. The wound was irrigated with saline. Hemostasis was good. The dermis was approximated using an inverted suture of 3-0 Vicryl and the skin was approximated using a running subcuticular suture of 4-0 Vicryl. Benzoin and a Steri-Strip were placed over the incision and a sterile bandage followed. The patient was taken to the recovery area in stable condition postoperatively.
[2022-02-05] MEDS: fentaNYL 50 mcg/mL INJ 2mL IVP ×2 (08:45→09:10)
[2022-02-05] MEDS: meperidine 50 mg/mL INJ 12.5 MG IVP (08:50)
--- NOTE | 2022-02-05 08:55 | SUR.PHASEI ---
0828 PT TO PACU AWAKES , ORAL AIRWAY OUT AND PT CRYING AND C/O OF PAIN TO RT CHEST, SEE PAIN MED GIVEN BY DR RYAN AT BEDSIDE, RT BREAST DRESSING D/I IV TO LT AC #20 WITH NS 450ML UP AT FAST RATE PER GRAVITY, HOB AT 30 DEGREES, BILATERAL SCDS ON . PT ID BRACELET TO LT WRIST , PT ID'D WITH 2 IDENTIFIERS WARM BLANKETS X 2 TO PT. 0845 SEE PAIN MED GIVEN. 0850 PT REMAINS AWAKE ALERT PT SHIVERING UNCONTROLLED AND PT C/O OF PAIN, SEE PAIN MED GIVEN FOR SHIVERING.
--- NOTE | 2022-02-05 09:15 | SUR.PHASEI ---
0910 PT REPORT GIVEN TO OPS, PT NOW AWAKE ALERT ASKING FOR DILAUDID FOR PAIN, PT REPEATEDLY ASKING FOR IV PAIN MEDS STATES THE PAIN IS (STABBING , AND BAD) PT APPEARS CALM VSS NOT ELEVATED . SEE PAIN MED GIVEN PER PT REQUEST, PT INFORMED OF BEING ABLE TO TAKE PO PAIN MED IN OPS, PT INSISTED ON IV PAIN MEDS NOW.
--- NOTE | 2022-02-05 09:20 | SUR.PHASEI ---
PT SLEEPS IF NOT DISTURBED, NO OBVIOUS S/S OF PAIN, VSS. RT BREAST DRESSING D/I NO HEMATOMA NOTED.
[2022-02-05] MEDS: HYDROmorphone 1 mg/mL INJ 1 mL 0.25 MG IVP (09:35)
[2022-02-05] MEDS: diphenhydrAMINE 50 mg/mL SDV 1mL 12.5 MG IVP (10:37)
--- NOTE | 2022-02-05 11:04 | SUR.PHASEII ---
0927 received report from pacu and pt requesting dilaudid for pain,states that it is the only pain rx that works for her,dr lucio (anesthesia) notified and instructed to give 0.25mg of dilaudid iv for pain 1005 pt resting and stating pain rx effective,instructed may get up and sit on side of bed when ready to go home 1030 sitting up on side of bed and c/o itching,no redness,rash or whelps noted, order for benadryl 12.5mg iv given per dr Martinez(anesthesia) 1100 pt lying in stretcher and family at bedside,instructed may get up and change clothes,d/c papers done with and mother of pt and verbalized understanding
--- NOTE | 2022-02-05 11:55 | SUR.PHASEII ---
0932 received from pacu and pt requesting dilaudid for c/o pain states that is the only pain rx that works for her,instructed dr lucio(anesthesia) about this and order given to give dilaudid 0.25mg iv for pain 1000 pt with eyes closed and family at bedside, instructed pt and family that pt could go home when ready and verbalized understanding 1030 pt sitting up on side of bed and c/o itching, no redness,swelling or whelps noted,order received from dr smith(anesthesia) regarding itching and order given for benadryl 12.5mg iv, pt very sleepy and lying in bed 1100 itching rx effective and iv d/zaheer all intact
--- NOTE | 2022-02-05 12:11 | ANE.PACU2 ---
Inpatient post-anesthesia follow up: Airway intact: Yes Vital signs: Temperature 97.8 F Pulse Rate 64 Respiratory Rate 15 Blood Pressure 101/64 Pulse Oximetry 96 Oxygen Delivery Me thod Room Air Oxygen Flow Rate 8 Fraction of Inspir ed Oxygen Hydration adequate: Yes Nausea and vomiting: No Pain level: 3 Mental status: Baseline
[2022-02-06 06:03] LABS: H. Pylori / CLO Test Negative
== END 2022-02-05 11:15 | disposition home or self-care (01) ==
PROVIDERS: PCP Nurse Practitioner Family; Visit Provider Surgery
PROC: (CPT 19301; principal; 2022-02-05 08:00)
PROC: 0DJ08ZZ Inspection of Upper Intestinal Tract, Via Natural or Artificial Opening Endoscopic (ICD-10-PCS; CPT 43235; 2022-02-05 08:00)
DX: N63.10 Unspecified lump in the right breast, unspecified quadrant (principal); R10.13 Epigastric pain; K29.70 Gastritis, unspecified, without bleeding; K29.80 Duodenitis without bleeding; Z83.3 Family history of diabetes mellitus; Z82.3 Family history of stroke; Z80.3 Family history of malignant neoplasm of breast
CPT/HCPCS: 19301; 43239; 81025; 84703; 87077; 88307; J0690; J1170; J1200; J2175; J2250; J2704; J3010; J3490; J7030

== ENCOUNTER 2022-02-19 07:31 | Day surgery (SDC) | payer OTHER, SELFPAY ==
[2022-02-18 11:30] VITALS: BMI 30.2
[2022-02-19] VITALS (19 sets, daily range): BP systolic 88–138; BP diastolic 47–82; PULSE 60–108; RESP 12–34; TEMP 36.2–37; O2SAT 90–100
[2022-02-19 08:46] LABS: OR HCG Qualitative Urine Negative (Negative)
--- NOTE | 2022-02-19 08:46 | P.ANESASSM_ITS ---
Pre-Anesthetic Assessment Height/Weight: Height 1.55 m Weight 72.575 kg Preop Diagnosis: Right breast mass, epigastric/RUQ pain Operation Date: 02/19/22 09:10 Proposed Procedures p Laparoscopic Cholecystectomy 51277/k81.1(Not Applicable) - Felipe Rosen MD Familial anesthetic complications: None Was Beta Roberto taken within 24 hours: N/A Was Clonidine taken within 24 hours: N/A Last intake: Intake Last Liquid Date 02/18/22 Last Liquid Time 23:00 Last Solid Date 02/18/22 Last Solid Time 23:00 Social No alcohol and No tobacco Exam alert, oriented x 3, clear to auscultation bilaterally and regular rate & rhythm Airway Submandibular: within normal limits Cervical ROM: within normal limits Mallampati: Class I Dentition: full History/ROS No significant complaints Pulmonary None reported CV/HEM None reported None reported Hepatic None reported GI Gastroesophageal Reflux Disease symptomatic gallbladder disease Metabolic None reported Musc/skel None reported Neuropsych None reported Anesthetic Plan ASA status: 2 Anesthesia: Anesthesia Evaluation and General Other: We discussed risk and benefits of general anesthesia including PONV, sore throat (sometimes severe), corneal abrasion, positioning and peripheral nerve injuries, life threatening allergic reaction, post operative ICU admission requiring prolonged intubation, stroke, heart attack, , and rare incidences of recall. Patient consents to proceed with general anesthesia. Risk of > 500 ml blood loss (7ml/kg in children): No Medications/Allergies Home Medications Medication Instructions Recorded Confirmed Last Taken Type citalopram 20 mg tablet (Celexa) 20 mg PO DAILY 02/04/22 02/18/22 02/05/22 History hydrocodone 5 mg-acetaminophen 325 1 - 2 tab PO Q5H PRN #30 tab 02/19/22 U nknown Rx mg tablet Allergies Allergy/AdvReac Type Severity Reaction Status Date / Time morphine Allergy ALGY-Hives Verified 02/18/22 11:27 [facility] Anesthesia Medical History Bleeding in early High risk medication use Surgical History H/O dilation and curettage 09/05/2020- suction D&C performed by Dr. Leung at [facility] No history of previous surgery Family History Grandmother Clotting disorder maternal Diabetes maternal Father Stroke Family/Other Breast cancer maternal aunt Denies family history of Colon cancer Ovarian cancer Heart disease Hyperlipidemia Anesthesia complication Bleeding disorder Hypertension Uterine cancer Thyroid condition Social History Second hand smoke exposure: No Smoking risk assessment/counseling performed?: No Alcohol intake: former Former alcohol use details: prior to Desire information about alcohol rehabilitation?: No Counseling given: No Desire information about substance/drug rehabilitation?: No Counseling given: No Adopted: No Caregiver/support person: No Lives independently: Yes Household members: spouse Housing: House Marital status: Number of children: 2 service: No Current occupational status: employed Current occupation: [employer] Pets and animals: No History of recent travel: No Leisure activites: exercise Current gender identity: Female Female Reproductive History Date of last menstrual period: 01/10/22 Data Anesthesia Cardiac Studies: No Data to Display
[2022-02-19] MEDS: sodium chloride 0.9% 1,000 ML 30 ML IV (08:52)
--- NOTE | 2022-02-19 08:52 | W.PM.OPSUD ---
Surgery/Procedure H&P Update DATE OF PROCEDURE: February 19, 2022 DATE H&P PERFORMED: 02/17/22 H&P UPDATE INFORMATION: No changes to prior documentation PREOP DIAGNOSIS: Chronic cholecystitis. PLANNED PROCEDURE: Operation Date: 02/19/22 09:10 Proposed Procedures p Laparoscopic Cholecystectomy 54746/k81.1(Not Applicable) - Felipe Rosen MD
[2022-02-19] MEDS: scopolamine 1.5 Patch 1 PATCH TRANSDERMA (08:53)
[2022-02-19 09:26] LABS: Alanine Aminotransferase 10 U/L (0-33); Alkaline Phosphatase 100 IU/L (35-105); Aspartate Amino Transferase 16 U/L (0-32); Globulin 2.7 g/dL (1.3-4.6); Total Bilirubin 0.2 mg/dL (0.15-1.2); Total Protein 6.7 g/dL (6.6-8.7)
--- NOTE | 2022-02-19 09:50 | P.OP_ITS ---
Operative Report Date of procedure: February 19, 2022 Pre-op diagnosis: Preop Diagnosis Chronic cholecystitis. Post-op diagnosis: Same. Procedure done: Laparoscopic cholecystectomy. Specimens removed/disposition: Gallbladder. Surgeon: General Surgery Felipe Rosen MD Anesthesia: General Estimated blood loss: 20 mL. Complications: None. Procedure: The patient was brought to the Operating Room and was placed in a supine pos ition on the Operating Room table. General endotracheal anesthesia was induced. The abdomen was prepped and draped in a sterile fashion. A small vertical incision was carried out in the inferior aspect of the umbilicus. Blunt dissection was carried out down to the fascia, which was grasped with a Willie clamp. A stay suture of 0 Vicryl was placed on either side of the midline and the midline fascia was incised. The underlying peritoneum was opened bluntly and the Mckay port was placed directly into the peritoneal cavity and was held in place with the inflatable balloon. The peritoneal cavity was insufflated with carbon dioxide. The laparoscope was used to inspect the abdominal cavity. No gross abnormalities were initially noted. A 5 millimeter port was placed in the epigastrium under direct vision. Two 5-millimeter ports were placed on the right side of the abdomen under direct vision. The gallbladder was grasped and was elevated. At this point it could be seen that the patient had some chronic adhesions to the infundibular region of the gallbladder and the adjacent body. These adhesions were all taken down using blunt dissection with a minimum of cautery to maintain hemostasis. Blunt dissection and hydrodissection were carried out in the infundibular region of the gallbladder and the cystic duct and cystic artery were identified. During the dissection, a small branch of the cystic artery was ruptured and slowly oozed until the entire vessel could be clipped. The gallbladder was partially removed from the liver bed using cautery and the spatula to confirm the anatomy before the structures were clipped and divided. The gallbladder was then removed from the liver bed using cautery and the spatula. After the gallbladder had been removed from the liver bed, the l aparoscope was moved to the epigastric port and the gallbladder was removed from the peritoneal cavity through the umbilical port site. The stay sutures of Vicryl were tied to each other at the umbilicus, closing the defect so that it was airtight. The perihepatic spaces were irrigated with saline and the liver bed was reinspected. No further bleeding or other ongoing problems were seen. The remaining ports were removed from the abdominal wall and the pneumoperitoneum was evacuated. All skin incisions were closed using inverted interrupted sutures of 4-0 Vicryl. Benzoin and Steri-Strips were placed over the incisions and Band-Aids followed. The patient was taken to the Recovery Area in stable condition postoperatively.
[2022-02-19] MEDS: fentaNYL 50 mcg/mL INJ 2mL IVP (10:12)
[2022-02-19] MEDS: ondansetron 2 mg/ML SDV 2 mL 4 MG IVP (10:37)
--- NOTE | 2022-02-19 10:38 | SUR.PHASEI ---
1000 PT TO PACU PACU 5 PT SLEEPY WITH GOOD RESP NOTED IV PATENT IV #20 NS 500ML UP AT KVO PER GRAVITY ID BRACELET TO RT WRIST PT ID WITH 2 IDENTIFIERS, WARM BLANKETS TO PT, BILAT SCDS ON DR ZARAGOZA A BEDSIDE. ABDOMEN SOFT WITH 4 SITES WITH BANDAIDS D/I BILAT SCDS ON. 1012 PT AWAKE ALERT SCREAMING OUT WITH PAIN, PT YELLING (PLEASE GIVE ME SOMETHING FOR PAIN ) SEE MED GIVEN PT UP IN BED CRYING PROFUSELY, VSS AND NOW C/O OF NAUSEA, EMESIS BASIN TO PT AND COOL CLOTH TO FOREHEAD 1015 PT UNRESPONSIVE TO STRONG STIMULI, AIRWAY OPENED , STERNAL RUB PERFORMED , HOB AT 30 DEGREES, DR MORRISON AT BEDSIDE 1016 PT PREPARED TO BE BAGGED BUT AWAKES, GOOD AIRMOVEMENT NOTED AND SATS UP TO HIGH 90/S, COOL CLOTH TO PT FOREHEAD PT NOW CRYING OUT LOUDLY ( IT HURTS SO BAD!!!! PLEASE GIVEN ME SOMETHING FOR PAIN. DR MORRISON AT BEDSIDE, GAVE VERBAL ORDER FOR NARCAN IF NEEDED. 1025 PT DOZING OFF, RESP DOWN TO 2PER MIN, PT STIMULATED WITH STERNAL RUB , COOL CLOTH, PT AWAKES AND STARTS SCREAMING AGAIN , ASKING FOR PAIN MEDS, VSS AT THIS TIME. 1045 PT HAS BEEN TEARFULL AND COMPLAINS OF PAIN BUT CRYING AT TIMES THEN DRIFTS OFF TO SLEEP, DR MORRISON AWARE. [address] MORRISON
[2022-02-19] MEDS: ketorolac 30 mg/mL INJ IVP (11:07)
--- NOTE | 2022-02-19 11:13 | SUR.PHASEI ---
1137 PT C/O OF NAUSEA WITH PAIN SEE MED GIVEN.
--- NOTE | 2022-02-19 11:15 | SUR.PHASEI ---
1107 TORDOL IVP GIVEN ORDERED PT REPOSITIONED TO RT SIDE WITH WARM BLANKETS TO ABDOMEN AND BACK OT SLEESP WITH NO C/O NOW,
[2022-02-19] MEDS: HYDROcodone-acetaminophen 5-325 mg Tablet 2 TAB PO (11:47)
--- NOTE | 2022-02-19 14:32 | ANE.PACU2 ---
Inpatient post-anesthesia follow up: Airway intact: Yes Vital signs: Temperature 98.5 F Pulse Rate 63 Respiratory Rate 18 Blood Pressure 107/71 Pulse Oximetry 99 Oxygen Delivery Me thod Room Air Oxygen Flow Rate 8 Fraction of Inspir ed Oxygen Hydration adequate: Yes Nausea and vomiting: No Pain level: 3 Mental status: Baseline
== END 2022-02-19 12:15 | disposition home or self-care (01) ==
PROVIDERS: Anesthesiology; PCP Nurse Practitioner Family; Visit Provider Surgery
PROC: 0FT44ZZ Resection of Gallbladder, Percutaneous Endoscopic Approach (ICD-10-PCS; CPT 47562; principal; 2022-02-19 09:00)
DX: K80.10 Calculus of gallbladder with chronic cholecystitis without obstruction (principal)
CPT/HCPCS: 47562; 80076; 84703; 88304; J0690; J1100; J1885; J2250; J2405; J2704; J2710; J3010; J3490; J7030

== ENCOUNTER 2022-02-19 21:38 | Emergency (ER) | payer OTHER, SELFPAY ==
--- NOTE | 2022-02-19 22:00 | ECG_ITS ---
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 Measurements Intervals [place] Rate: 59 P: 24 MT: 132 QRS: 44 QRSD: 81 T: 44 QT: 398 QTc: 396 Interpretive Statements SINUS BRADYCARDIA WITH SINUS ARRHYTHMIA No previous ECG available for comparison Electronically Signed On 02-20-2022 20:42:26 CDT by Jasmeet Eli M.D. [id number]
[2022-02-19 22:29] VITALS: BP 108/74; PULSE 67; RESP 22; TEMP 36.9; O2SAT 100; BMI 30.2
--- NOTE | 2022-02-20 01:05 | CTR_ITS ---
PROCEDURE INFORMATION: Exam: CT Abdomen And Pelvis Without Contrast Exam date and time: 02/20/2022 1:44 AM Age: 26 years old Clinical indication: Abdominal pain; Generalized; Prior surgery; Surgery date: Post-operative (0-2 days); Surgery type: Gb on 02/19/2022. ; Patient HX: C/O diffuse abd pain with nausea S/P lap gb surg on 02/19/2022. ; Additional info: Post op pain TECHNIQUE: Imaging protocol: Computed tomography of the abdomen and pelvis without contrast. Radiation optimization: All CT scans at this facility use at least one of these dose optimization techniques: automated exposure control; mA and/or kV adjustment per patient size (includes targeted exams where dose is matched to clinical indication); or iterative reconstruction. COMPARISON: CT chest abd pel w con* 01/25/2022 3:04 AM RADIATION DOSE METRICS: Total DLP (mGy-cm): 985.08 FINDINGS: Liver: Normal. No mass. Gallbladder and bile ducts: Status post cholecystectomy. Pancreas: Normal. No ductal dilation. Spleen: Normal. No splenomegaly. Adrenal glands: Normal. No mass. Kidneys and ureters: Normal. No hydronephrosis. Stomach and bowel: Unremarkable. No obstruction. No mucosal thickening. Appendix: The appendix is visualized and is normal in configuration. Intraperitoneal space: Unremarkable. No free air. No significant fluid collection. Vasculature: Unremarkable. No abdominal aortic aneurysm. Lymph nodes: Multiple small mesenteric lymph nodes are seen that are below CT criteria for lymphadenopathy. Mild mesenteric lymphadenitis cannot be entirely excluded. Urinary bladder: Unremarkable as visualized. Reproductive: Unremarkable as visualized. Bones/joints: Unremarkable. No acute fracture. Soft tissues: Unremarkable. Other findings: A small volume of fluid is seen within the dependent portion of the pelvis likely commensurate with the patient's age and menstrual status. CT/CT kidney stone [id number] IMPRESSION: 1. Small mesenteric lymph nodes are seen that are below CT criteria for lymphadenopathy. Mild mesenteric lymphadenitis cannot be entirely excluded. 2. Normal appendix 3. No evidence for ureteral obstruction 4. Small volume of fluid in the dependent portion of the pelvis commensurate with patient's age and menstrual status.
[2022-02-20 01:31] VITALS: RESP 18; O2SAT 99
[2022-02-20 01:31] LABS: Basophils % 0.2 %; Hematocrit 37.2 % (37.0-47.0); Hemoglobin 11.5 g/dL (11.5-15.3); Lymphocytes # 1.3 10^3/uL (0.8-4.8); Lymphocytes % 10.9 %; Mean Corpuscular HGB Conc 30.9 g/dL (30.0-36.0); Mean Corpuscular Hemoglobin 27.9 pg (28.0-34.0); Mean Corpuscular Volume 90.3 fl (81-99); Mean Platelet Volume 9.9 fL (7.4-10.4); Monocytes % 8.2 %; Neutrophils # 9.86 10^3/uL (1.8-7.7); Neutrophils % 80.5 %; Nucleated Red Blood Cells % 0 %; Platelet Count 281 10^3/cmm (130-400); Red Blood Count 4.12 10^6/uL (4.1-5.3); Red Cell Distribution Width 14.2 % (12.1-15.1); White Blood Count 12.3 10^3/uL (4.0-10.0)
[2022-02-20] MEDS: HYDROmorphone 1 mg/mL INJ 1 mL IVP (01:31)
[2022-02-20] MEDS: ondansetron 2 mg/ML SDV 2 mL 4 MG IVP (01:31)
--- NOTE | 2022-02-20 01:32 | W.ED.ABDPA2 ---
HPI - Abdominal Pain General: Chief Complaint: Abdominal Pain Stated Complaint: fever, pain, post op today Time Seen by Provider: 02/20/22 00:39 Source: patient Mode of arrival: ambulatory Limitations: no limitations History of Present Illness: 26-year-old female who states that she had a cholecystectomy done this morning she states that since discharge she has had diffuse abdominal pain that is worsened. States she feels like her abdomen is distended as well. She states she been taking her hydrocodone with minimal relief states her pain is currently an 8 out of 10 she has had some nausea denies any vomiting she denies any fevers denies any worsening improving factors. Associated Symptoms: Denies chills, dysuria and fever(s) Related Data: Date of Last Menstrual Period: 01/10/22 Review of Systems Const: Denies: fever(s), chills, body aches or change in appetite Eyes: Denies: blurry vision or eye discomfort ENMT: Denies: throat pain or dental pain Card: Denies: chest pain Resp: Denies: dyspnea GI: Reports: abdominal pain : Denies: dysuria Musc: Denies: neck pain or back pain Skin/Breast: Denies: rash Neuro: Denies: headache(s) Psych: Denies: depression Carlo/Lymph: Denies: easy bruising All/Imm: Denies: urticaria PFSH ED PFSH: Medical History Bleeding in early High risk medication use Surgical History H/O dilation and curettage 09/05/2020- suction D&C performed by Dr. Leung at [facility] No history of previous surgery Family History Grandmother Clotting disorder maternal Diabetes maternal Father Stroke Family/Other Breast cancer maternal aunt Denies family history of Colon cancer Ovarian cancer Heart disease Hyperlipidemia Anesthesia complication Bleeding disorder Hypertension Uterine cancer Thyroid condition Social History Second hand smoke exposure: No Smoking risk assessment/counseling performed?: No Alcohol intake: former Former alcohol use details: prior to Desire information about alcohol rehabilitation?: No Counseling given: No Desire information about substance/drug rehabilitation?: No Counseling given: No Adopted: No Caregiver/support person: No Lives independently: Yes Household members: spouse Housing: House Marital status: Number of children: 2 service: No Current occupational status: employed Current occupation: [employer] Pets and animals: No History of recent travel: No Leisure activites: exercise Current gender identity: Female Female Reproductive History: Date of last menstrual period: 01/10/22 Physical Exam Const: COMMON NORMALS: no acute distress, patient oriented x3 and healthy appearing HENMT: COMMON NORMALS: normocephalic and atraumatic HEAD & SCALP: normocephalic and atraumatic Eye: COMMON NORMALS: Equal, round and reactive pupils present and EOMs intact bilaterally PUPIL: Yes Equal, round and reactive pupils present Neck/C-Spine: COMMON NORMALS: full ROM and supple Chest: COMMONS NORMALS: normal inspection of the chest and normal palpation of entire chest wall Resp: COMMON NORMALS: normal respiratory effort, No retractions, No use of accessory muscles and clear to auscultation bilaterally AUSCULTATION: clear to auscultation bilaterally Cardio: COMMON NORMALS: regular rate, regular rhythm and No murmurs present (Cardio) RATE: regular rate RHYTHM: regular rhythm GI: COMMON NORMALS: Soft to palpation and no masses PALPATION: Yes Soft to palpation OTHER: Incisions are clean dry and intact she does have some diffuse tenderness on exam Extremity: COMMON NORMALS: normal to inspection and full ROM Neuro: COMMON NORMALS: patient oriented x3, moves all extremities and no focal motor deficits Psych: COMMON NORMALS: mental status grossly normal, Normal thought process present and cooperative THOUGHT PROCESS: Normal thought process present Skin: COMMON NORMALS: no rashes or lesions noted and no wounds GENERAL SKIN EXAM: no rashes or lesions noted Course Vital Signs: Vital signs: Vital Signs Temperature 98.4 F 02/19/22 22:29 Pulse Rate 68 02/20/22 03:46 Respiratory Rate 16 02/20/22 03:46 Blood Pressure 94/71 02/20/22 03:46 Pulse Oximetry 100 02/20/22 03:46 MDM - Abdominal Pain Medical Decision Making Patient presents here with abdominal pain CT shows no acute findings this likely postop pain she is stable for discharge follow-up with PCP and return if worsening. Lab Data : 02/20/22 01:27 02/20/22 01:27 Labs/Radiology: Radiology Impressions Abdomen/Pelvis CT 02/20/22 01:05 IMPRESSION: 1. Small mesenteric lymph nodes are seen that are below CT criteria for lymphadenopathy. Mild mesenteric lymphadenitis cannot be entirely excluded. 2. Normal appendix 3. No evidence for ureteral obstruction 4. Small volume of fluid in the dependent portion of the pelvis commensurate with patient's age and menstrual status. Laboratory Results WBC 12.3 10^3/uL (4.0-10.0) H 02/20/22 01:27 RBC 4.12 10^6/uL (4.1-5.3) 02/20/22 01:27 Hgb 11.5 g/dL (11.5-15.3) 02/20/22 01:27 Hct 37.2 % (37.0-47.0) 02/20/22 01:27 MCV 90.3 fl (81-99) 02/20/22 01:27 MCH 27.9 pg (28.0-34.0) L 02/20/22 01:27 MCHC 30.9 g/dL (30.0-36.0) 02/20/22 01:27 RDW 14.2 % (12.1-15.1) 02/20/22 01:27 Plt Count 281 10^3/cmm (130-400) 02/20/22 01:27 MPV 9.9 fL (7.4-10.4) 02/20/22 01:27 Neut % (Auto) 80.5 % 02/20/22 01:27 Lymph % (Auto) 10.9 % 02/20/22 01:27 Page % (Auto) 8.2 % 02/20/22 01:27 Eos % (Auto) 0.0 % 02/20/22 01:27 Baso % (Auto) 0.2 % 02/20/22 01:27 Neut # (Auto) 9.86 10^3/uL (1.8-7.7) H 02/20/22 01:27 Lymph # (Auto) 1.3 10^3/uL (0.8-4.8) 02/20/22 01:27 Page # (Auto) 1.0 10^3/uL (0.2-0.9) H 02/20/22 01:27 Eos # (Auto) 0.0 10^3/uL (0.0-0.8) 02/20/22 01:27 Baso # (Auto) 0.0 10^3/uL (0.0-0.1) 02/20/22 01:27 Nucleated RBC % (auto) 0 % 02/20/22 01:27 Nucleated RBCs # 0.0 /100WBC 02/20/22 01:27 Sodium 137 mmol/L (136-145) 02/20/22 01:27 Potassium 3.8 mmol/L (3.5-5.1) 02/20/22 01:27 Chloride 103 mmol/L (98-107) 02/20/22 01:27 Carbon Dioxide 26 mmol/L (22-29) 02/20/22 01:27 Anion Gap 11.8 (5-19) 02/20/22 01:27 BUN 10 mg/dL (6-20) 02/20/22 01:27 Creatinine 0.5 mg/dL (0.5-0.9) 02/20/22 01:27 GFR Calculation 151.6 mL/min (90-130) H 02/20/22 01:27 Glucose 124 mg/dL (65-115) H 02/20/22 01:27 Calculated Osmolality 284 mOsm/kg (285-295) L 02/20/22 01:27 Calcium 9.1 mg/dL (8.5-10.5) 02/20/22 01:27 Total Bilirubin 0.2 mg/dL (0.15-1.2) 02/20/22 01:27 AST 24 U/L (0-32) 02/20/22 01:27 ALT 18 U/L (0-33) 02/20/22 01:27 Alkaline Phosphatase 99 IU/L (35-105) 02/20/22 01:27 Total Protein 6.9 g/dL (6.6-8.7) 02/20/22 01:27 Albumin 4.1 g/dL (3.5-5.2) 02/20/22 01:27 Globulin 2.8 g/dL (1.3-4.6) 02/20/22 01:27 Lipase 19 U/L (13-60) 02/20/22 01:27 Urine Color Yellow (Yellow) 02/20/22 01:41 Urine Appearance Clear (CLEAR) 02/20/22 01:41 Urine pH 5 (5-7) 02/20/22 01:41 Ur Specific [place] 1.015 (1.005-1.030) 02/20/22 01:41 Urine Protein Neg (Negative) 02/20/22 01:41 Urine Glucose (UA) Norm (Normal) 02/20/22 01:41 Urine Ketones 1+ (Negative) H 02/20/22 01:41 Urine Blood Trace (Negative) H 02/20/22 01:41 Urine Nitrate Negative (Negative) 02/20/22 01:41 Urine Bilirubin Neg (Negative) 02/20/22 01:41 Urine Urobilinogen Norm mg/dL (Negative) 02/20/22 01:41 Ur Leukocyte Esterase Trace (Negative) H 02/20/22 01:41 Urine RBC 0-4 /hpf (0-2) H 02/20/22 01:41 Urine WBC 5-10 /hpf (0-5) H 02/20/22 01:41 Ur Squamous Epith Cells 10-15 /hpf (0-5) H 02/20/22 01:41 Amorphous Sediment Not Reportable 02/20/22 01:41 Urine Bacteria Trace /hpf (NONE) 02/20/22 01:41 Urine Mucus Trace /hpf 02/20/22 01:41 Discharge Plan Discharge Patient Disposition: Home Clinical Impression: Abdominal pain Condition: Stable Prescriptions: No Action citalopram [Celexa] 20 mg Tablet 20 mg PO DAILY 0RF hydrocodone-acetaminophen 5-325 mg tablet 1 - 2 tab PO Q5H PRN (Reason: pain) Qty: 30 0RF Discharge Orders: Discharge ED (Routine); Ordered 02/20/22 Ordered By: Qi Darling Referrals: Petit,Ramila, 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
[2022-02-20 01:46] LABS: Add Urine Microscopic? YES; Bilirubin Urine Neg (Negative); Blood Urine Trace (Negative); Glucose Urine UA Norm (Normal); Ketones Urine 1+ (Negative); Leukocyte Esterase Urine Trace (Negative); Nitrate Urine Negative (Negative); Protein Urine Neg (Negative); Specific Gravity, Urine 1.015 (1.005-1.030); Urine Appearance Clear (CLEAR); Urine Color Yellow (Yellow); Urobilinogen Urine Norm (Negative); pH Urine 5 (5-7)
[2022-02-20 01:52] LABS: Alanine Aminotransferase 18 U/L (0-33); Albumin Level 4.1 g/dL (3.5-5.2); Alkaline Phosphatase 99 IU/L (35-105); Anion Gap 11.8 (5-19); Aspartate Amino Transferase 24 U/L (0-32); Blood Urea Nitrogen 10 mg/dL (6-20); Calcium 9.1 mg/dL (8.5-10.5); Carbon Dioxide 26 mmol/L (22-29); Chloride 103 mmol/L (98-107); Creatinine Clr Calc Pharmacy 158.0613; Globulin 2.8 g/dL (1.3-4.6); Glomerular Filtration Rate 151.6 mL/min (90-130); Glucose 124 mg/dL (65-115); Lipase 19 U/L (13-60); Osmolality Calculated 284 mOsm/kg (285-295); Potassium 3.8 mmol/L (3.5-5.1); Sodium 137 mmol/L (136-145); Total Bilirubin 0.2 mg/dL (0.15-1.2); Total Protein 6.9 g/dL (6.6-8.7)
[2022-02-20 01:53] LABS: Add Urine Culture? No; Bacteria Urine TRACE /hpf; Mucus Urine TRACE /hpf; RBC Urine 0-4 /hpf (0-2)
[2022-02-20] MEDS: HYDROmorphone 1 mg/mL INJ 1 mL 0.5 MG IVP (03:00)
[2022-02-20] MEDS: diphenhydrAMINE 50 mg/mL SDV 1mL IVP (03:45)
[2022-02-20 03:46] VITALS: BP 94/71; PULSE 68; RESP 16; O2SAT 100
== END 2022-02-20 03:47 | disposition home or self-care (01) ==
PROVIDERS: Emergency Provider Emergency Medicine; PCP Nurse Practitioner Family
DX: R10.9 Unspecified abdominal pain (principal); Z90.49 Acquired absence of other specified parts of digestive tract
CPT/HCPCS: 74176; 80053; 81001; 83690; 85025; 93005; 96374; 96375; 96376; 99284; J1170; J1200; J2405

== ENCOUNTER 2022-02-20 23:29 | Emergency (ER) | payer OTHER, SELFPAY ==
[2022-02-20 23:33] VITALS: BP 119/82; PULSE 76; RESP 16; TEMP 36.9; O2SAT 98; BMI 29.2
--- NOTE | 2022-02-21 00:22 | W.ED.ABDPA2 ---
HPI - Abdominal Pain General: Chief Complaint: Abdominal Pain Stated Complaint: ABD pain Time Seen by Provider: 02/20/22 23:48 Source: patient History of Present Illness: 26-year-old female who is now on day 2 status postcholecystectomy. She was discharged in the afternoon of 02/19. She was seen last night in the emergency department for ongoing belly pain, and distention. She presents tonight with the same complaint. She states now she has had a fever of up to 103 at home. She continues to have periumbilical and epigastric mainly abdominal pain. She has not vomited, but notes she is nauseated. She complains of feeling very full and distended. She does not feel like she can eat due to the distention. She has been passing gas. She has not passed stool, but notes she has not really eaten anything since the surgery. MD elicited complaint: abdominal pain Pertinent past history: other Onset (ago): hour(s) (36) Pain Consistency: constant Location: Epigastric and Periumbilical Severity: similar to previous episodes Quality: stabbing and aching Migration to: no migration Exacerbating factors: movement Relieving factors: nothing Associated Symptoms: Reports anorexia, bloating, change in bowel habits, fever(s), nausea and poor appetite; Denies excessive flatus, heartburn, hematochezia and vomiting Related Data: Date of Last Menstrual Period: 01/10/22 Review of Systems Const: Reports: fever(s) ENMT: Denies: throat pain Card: Reports: chest pain Resp: Denies: dyspnea or productive cough GI: Reports: nausea, bloating and change in bowel habits; Denies: vomiting, heartburn, excessive flatus or hematochezia : Denies: difficulty voiding PFSH ED PFSH: Medical History Bleeding in early High risk medication use Surgical History H/O dilation and curettage 09/05/2020- suction D&C performed by Dr. Leung at [facility] No history of previous surgery Family History Grandmother Clotting disorder maternal Diabetes maternal Father Stroke Family/Other Breast cancer maternal aunt Denies family history of Colon cancer Ovarian cancer Heart disease Hyperlipidemia Anesthesia complication Bleeding disorder Hypertension Uterine cancer Thyroid condition Social History Second hand smoke exposure: No Smoking risk assessment/counseling performed?: No Alcohol intake: former Former alcohol use details: prior to Desire information about alcohol rehabilitation?: No Counseling given: No Desire information about substance/drug rehabilitation?: No Counseling given: No Adopted: No Caregiver/support person: No Lives independently: Yes Household members: spouse Housing: House Marital status: Number of children: 2 service: No Current occupational status: employed Current occupation: [employer] Pets and animals: No History of recent travel: No Leisure activites: exercise Current gender identity: Female Female Reproductive History: Date of last menstrual period: 01/10/22 Physical Exam Const: GENERAL APPEARANCE: cooperative, in distress (in pain) and anxious HENMT: COMMON NORMALS: normocephalic, atraumatic and Normal external nose present HEAD & SCALP: normocephalic and atraumatic NOSE: Normal external nose present Eye: COMMON NORMALS: Equal, round and reactive pupils present and EOMs intact bilaterally PUPIL: Yes Equal, round and reactive pupils present Chest: CHEST: Yes Symmetrical chest wall rise Resp: COMMON NORMALS: normal respiratory effort, No use of accessory muscles and clear to auscultation bilaterally AUSCULTATION: clear to auscultation bilaterally Cardio: COMMON NORMALS: regular rate and regular rhythm RATE: regular rate RHYTHM: regular rhythm GI: INSPECTION: Yes abdominal distension PALPATION: Yes Tenderness to palpation present (GI) (Diffuse, worse epigastric and right upper quadrant) Extremity: COMMON NORMALS: normal to inspection and no pedal edema Neuro: NEVIN COMA SCALE: document GCS findings Nevin coma scale eye opening: Spontaneous [place] coma scale verbal response: Orientated Nevin coma scale motor response: Obey commands Nevin coma scale total score: 15 Skin: NARRATIVE SKIN EXAM: Laparoscopic port hole sites show no evidence of erythema or drainage. They look excellent clinically Course Vital Signs: Vital signs: Vital Signs Temperature 98.4 F 02/20/22 23:33 Pulse Rate 62 02/21/22 01:41 Respiratory Rate 18 02/21/22 01:41 Blood Pressure 119/62 02/21/22 02:11 Pulse Oximetry 98 02/21/22 01:41 MDM - Abdominal Pain Medical Decision Making CBC is normal. BMP is normal. Liver enzymes are normal urinalysis is contaminated. KUB shows significant constipation with a large colonic stool volume. No obstruction. Her pain and nausea are controlled after haloperidol, Percocet, and Toradol. She will be discharged home with magnesium citrate for constipation. We will also change her pain medication to Percocet and Toradol alternating. Lab Data : 02/21/22 00:58 02/21/22 00:58 Labs/Radiology: Radiology Impressions KUB X-Ray 02/21/22 00:27 IMPRESSION: 1. Constipation. 2. Negative for small bowel obstruction. Laboratory Results WBC 6.4 10^3/uL (4.0-10.0) 02/21/22 00:58 RBC 4.14 10^6/uL (4.1-5.3) 02/21/22 00:58 Hgb 11.6 g/dL (11.5-15.3) 02/21/22 00:58 Hct 37.3 % (37.0-47.0) 02/21/22 00:58 MCV 90.1 fl (81-99) 02/21/22 00:58 MCH 28.0 pg (28.0-34.0) 02/21/22 00:58 MCHC 31.1 g/dL (30.0-36.0) 02/21/22 00:58 RDW 14.5 % (12.1-15.1) 02/21/22 00:58 Plt Count 248 10^3/cmm (130-400) 02/21/22 00:58 MPV 10.2 fL (7.4-10.4) 02/21/22 00:58 Neut % (Auto) 56.0 % 02/21/22 00:58 Lymph % (Auto) 33.7 % 02/21/22 00:58 Republic % (Auto) 8.4 % 02/21/22 00:58 Eos % (Auto) 1.2 % 02/21/22 00:58 Baso % (Auto) 0.5 % 02/21/22 00:58 Neut # (Auto) 3.59 10^3/uL (1.8-7.7) 02/21/22 00:58 Lymph # (Auto) 2.2 10^3/uL (0.8-4.8) 02/21/22 00:58 Republic # (Auto) 0.5 10^3/uL (0.2-0.9) 02/21/22 00:58 Eos # (Auto) 0.1 10^3/uL (0.0-0.8) 02/21/22 00:58 Baso # (Auto) 0.0 10^3/uL (0.0-0.1) 02/21/22 00:58 Nucleated RBC % (auto) 0 % 02/21/22 00:58 Nucleated RBCs # 0.0 /100WBC 02/21/22 00:58 Sodium 138 mmol/L (136-145) 02/21/22 00:58 Potassium 3.5 mmol/L (3.5-5.1) 02/21/22 00:58 Chloride 102 mmol/L (98-107) 02/21/22 00:58 Carbon Dioxide 26 mmol/L (22-29) 02/21/22 00:58 Anion Gap 13.5 (5-19) 02/21/22 00:58 BUN 13 mg/dL (6-20) 02/21/22 00:58 Creatinine 0.6 mg/dL (0.5-0.9) 02/21/22 00:58 GFR Calculation 122.8 mL/min (90-130) 02/21/22 00:58 Glucose 85 mg/dL (65-115) 02/21/22 00:58 Calculated Osmolality 285 mOsm/kg (285-295) 02/21/22 00:58 Calcium 9.0 mg/dL (8.5-10.5) 02/21/22 00:58 Total Bilirubin 0.2 mg/dL (0.15-1.2) 02/21/22 00:58 AST 20 U/L (0-32) 02/21/22 00:58 ALT 19 U/L (0-33) 02/21/22 00:58 Alkaline Phosphatase 94 IU/L (35-105) 02/21/22 00:58 C-Reactive Protein 3.0 mg/L (0.0-4.9) 02/21/22 00:58 Total Protein 7.0 g/dL (6.6-8.7) 02/21/22 00:58 Albumin 4.1 g/dL (3.5-5.2) 02/21/22 00:58 Globulin 2.9 g/dL (1.3-4.6) 02/21/22 00:58 Lipase 30 U/L (13-60) 02/21/22 00:58 HCG, Qual Negative (Negative) 02/21/22 00:58 Urine Color Yellow (Yellow) 02/21/22 00:58 Urine Appearance Clear (CLEAR) 02/21/22 00:58 Urine pH 5 (5-7) 02/21/22 00:58 Ur Specific [place] 1.025 (1.005-1.030) 02/21/22 00:58 Urine Protein Neg (Negative) 02/21/22 00:58 Urine Glucose (UA) Norm (Normal) 02/21/22 00:58 Urine Ketones Negative (Negative) 02/21/22 00:58 Urine Blood Neg (Negative) 02/21/22 00:58 Urine Nitrate Negative (Negative) 02/21/22 00:58 Urine Bilirubin 1+ (Negative) H 02/21/22 00:58 Urine Urobilinogen Norm mg/dL (Negative) 02/21/22 00:58 Ur Leukocyte Esterase Trace (Negative) H 02/21/22 00:58 Urine RBC 0-4 /hpf (0-2) H 02/21/22 00:58 Urine WBC 10-15 /hpf (0-5) H 02/21/22 00:58 Ur Squamous Epith Cells 25-40 /hpf (0-5) H 02/21/22 00:58 Amorphous Sediment Not Reportable 02/21/22 00:58 Urine Bacteria 2+ /hpf (NONE) H 02/21/22 00:58 Urine Mucus 2+ /hpf 02/21/22 00:58 Discharge Plan Discharge Patient Disposition: Home Clinical Impression: Abdominal pain, Constipation Condition: Stable Prescriptions: New Percocet 7.5-325 mg tablet 1 tab PO Q6H PRN (Reason: pain) Qty: 10 0RF ondansetron 4 mg film 4 mg PO DAILY PRN (Reason: nausea and vomiting) Qty: 10 0RF ketorolac 10 mg tablet 10 mg PO TID PRN (Reason: pain) Qty: 10 0RF Discontinued hydrocodone-acetaminophen 5-325 mg tablet 1 - 2 tab PO Q5H PRN (Reason: pain) Qty: 30 0RF No Action citalopram [Celexa] 20 mg Tablet 20 mg PO DAILY 0RF Discharge Orders: Discharge ED (Routine); Ordered 02/21/22 Ordered By: Mihai Rivera Referrals: Ramila Petit, CERTIFIED ADAPTIVE PHYSICAL EDUCATOR [Primary Care Provider] - Patient Instructions: Abdominal Pain (ED), Opioid Safety Activity Restrictions/Additional Instructions: Return for continued fever greater than 100, worsening pain despite treatment, vomiting liquids or medications, any other concerning symptoms. Coding Level of Care Code ED Finisher Card Tender for Chg Fwd Exam Comprehensive
--- NOTE | 2022-02-21 00:27 | XRR_ITS ---
PROCEDURE INFORMATION: Exam: XR Abdomen Exam date and time: 02/21/2022 12:33 AM Age: 26 years old Clinical indication: Bloating; Abdominal pain; Generalized; Prior surgery; Surgery date: Post-operative (0-2 days); Surgery type: Gb. ; Patient HX: C/O diffuse abd pain with distention. Lap gb surg on 02/19/2022. ; Additional info: Abdominal pain and distention TECHNIQUE: Imaging protocol: XR of the abdomen. Views: Frontal supine view of the abdomen. 1 View. COMPARISON: CT kidney stone [id number] 02/20/2022 1:44 AM FINDINGS: Gastrointestinal tract: Large colonic stool volume. Negative for small bowel dilation. Negative for bowel pneumatosis. Intraperitoneal space: Right upper quadrant surgical clips. Bones/joints: Unremarkable. XR/XR KUB portable [id number] IMPRESSION: 1. Constipation. 2. Negative for small bowel obstruction.
[2022-02-21] MEDS: ketorolac 30 mg/mL INJ 15 MG IVP (01:00)
[2022-02-21] MEDS: haloperidol inj 5 mg/mL INJ 1 mL 3 MG IVP (01:00)
[2022-02-21] MEDS: lidocaine 2% viscous 15 ML, aluminum-mag hydrox-simethicon 30 ML, sucralfate oral liq 1 GM PO (01:03)
[2022-02-21] MEDS: oxyCODONE-APAP 5-325 mg Tablet 2 TAB PO (01:09)
[2022-02-21 01:10] LABS: Basophils % 0.5 %; Eosinophils # 0.1 10^3/uL (0.0-0.8); Eosinophils % 1.2 %; Hematocrit 37.3 % (37.0-47.0); Hemoglobin 11.6 g/dL (11.5-15.3); Lymphocytes # 2.2 10^3/uL (0.8-4.8); Lymphocytes % 33.7 %; Mean Corpuscular HGB Conc 31.1 g/dL (30.0-36.0); Mean Corpuscular Volume 90.1 fl (81-99); Mean Platelet Volume 10.2 fL (7.4-10.4); Monocytes # 0.5 10^3/uL (0.2-0.9); Monocytes % 8.4 %; Neutrophils # 3.59 10^3/uL (1.8-7.7); Nucleated Red Blood Cells % 0 %; Platelet Count 248 10^3/cmm (130-400); Red Blood Count 4.14 10^6/uL (4.1-5.3); Red Cell Distribution Width 14.5 % (12.1-15.1); White Blood Count 6.4 10^3/uL (4.0-10.0)
[2022-02-21 01:18] LABS: Add Urine Microscopic? YES; Bilirubin Urine 1+ (Negative); Blood Urine Neg (Negative); Glucose Urine UA Norm (Normal); Ketones Urine Negative (Negative); Leukocyte Esterase Urine Trace (Negative); Nitrate Urine Negative (Negative); Protein Urine Neg (Negative); Specific Gravity, Urine 1.025 (1.005-1.030); Urine Appearance Clear (CLEAR); Urine Color Yellow (Yellow); Urobilinogen Urine Norm (Negative); pH Urine 5 (5-7)
[2022-02-21 01:19] LABS: Add Urine Culture? No; Bacteria Urine 2+ /hpf; Mucus Urine 2+ /hpf; RBC Urine 0-4 /hpf (0-2); Squamous Epithelial Cell Urine 25-40 /hpf (0-5)
[2022-02-21 01:30] LABS: Alanine Aminotransferase 19 U/L (0-33); Albumin Level 4.1 g/dL (3.5-5.2); Alkaline Phosphatase 94 IU/L (35-105); Anion Gap 13.5 (5-19); Aspartate Amino Transferase 20 U/L (0-32); Blood Urea Nitrogen 13 mg/dL (6-20); Carbon Dioxide 26 mmol/L (22-29); Chloride 102 mmol/L (98-107); Globulin 2.9 g/dL (1.3-4.6); Glomerular Filtration Rate 122.8 mL/min (90-130); Glucose 85 mg/dL (65-115); Lipase 30 U/L (13-60); Osmolality Calculated 285 mOsm/kg (285-295); Potassium 3.5 mmol/L (3.5-5.1); Sodium 138 mmol/L (136-145); Total Bilirubin 0.2 mg/dL (0.15-1.2)
[2022-02-21 01:33] LABS: HCG, Serum Qual Negative (Negative)
[2022-02-21 01:41] VITALS: BP 119/82; PULSE 62; RESP 18; O2SAT 98
[2022-02-21 02:11] VITALS: BP 119/62
[2022-02-21] MEDS: magnesium citrate Btl 296 mL PO (02:11)
== END 2022-02-21 02:13 | disposition home or self-care (01) ==
PROVIDERS: Emergency Provider Emergency Medicine; PCP Nurse Practitioner Family
DX: R10.9 Unspecified abdominal pain (principal); K59.00 Constipation, unspecified; Z98.890 Other specified postprocedural states
CPT/HCPCS: 74018; 80053; 81001; 83690; 84703; 85025; 86140; 96374; 96375; 99284; J1630; J1885

== ENCOUNTER 2022-04-07 14:17 | Outpatient (CLI) | payer OTHER, SELFPAY ==
[2022-04-07 14:46] LABS: HCG Qualitative Urine. Negative (Negative)
== END 2022-04-07 14:18 | disposition home or self-care (01) ==
PROVIDERS: PCP Nurse Practitioner Family; Visit Provider Dermatology
DX: Z79.899 Other long term (current) drug therapy (principal)
CPT/HCPCS: 81025

== ENCOUNTER 2022-04-27 11:04 | Outpatient (CLI) | payer OTHER, SELFPAY ==
[2022-04-27 11:22] LABS: Basophils # 0.1 10^3/uL (0.0-0.1); Basophils % 0.8 %; Eosinophils # 0.1 10^3/uL (0.0-0.8); Eosinophils % 1.5 %; Hematocrit 40.9 % (37.0-47.0); Hemoglobin 12.8 g/dL (11.5-15.3); Lymphocytes # 1.6 10^3/uL (0.8-4.8); Lymphocytes % 24.2 %; Mean Corpuscular HGB Conc 31.3 g/dL (30.0-36.0); Mean Corpuscular Hemoglobin 28.4 pg (28.0-34.0); Mean Corpuscular Volume 90.9 fl (81-99); Mean Platelet Volume 9.3 fL (7.4-10.4); Monocytes # 0.5 10^3/uL (0.2-0.9); Monocytes % 6.9 %; Neutrophils % 66.3 %; Nucleated Red Blood Cells % 0 %; Platelet Count 273 10^3/cmm (130-400); Red Cell Distribution Width 14.7 % (12.1-15.1); White Blood Count 6.6 10^3/uL (4.0-10.0)
[2022-04-27 11:50] LABS: Alanine Aminotransferase 11 U/L (0-33); Albumin Level 4.6 g/dL (3.5-5.2); Alkaline Phosphatase 122 IU/L (35-105); Aspartate Amino Transferase 15 U/L (0-32); Blood Urea Nitrogen 10 mg/dL (6-20); Calcium 9.6 mg/dL (8.5-10.5); Carbon Dioxide 29 mmol/L (22-29); Chloride 103 mmol/L (98-107); Chol HDL Ratio 2.44 mg/dL (0.0-4.40); Cholesterol 154 mg/dL (0-200); Globulin 2.9 g/dL (1.3-4.6); Glucose 96 mg/dL (65-115); HDL Cholesterol 63 mg/dL (60-100); LDL Cholesterol Calculated 79 mg/dL (50-129); LDL HDL Ratio 1.25 RATIO (0.00-3.22); Osmolality Calculated 293 mOsm/kg (285-295); Sodium 142 mmol/L (136-145); Total Bilirubin 0.3 mg/dL (0.15-1.2); Total Protein 7.5 g/dL (6.6-8.7); Triglycerides 61 mg/dL (0-150)
[2022-04-27 11:54] LABS: HCG Qualitative Urine. Negative (Negative)
== END 2022-04-27 11:05 | disposition home or self-care (01) ==
PROVIDERS: PCP Nurse Practitioner Family; Visit Provider Dermatology
DX: L70.0 Acne vulgaris (principal); Z79.899 Other long term (current) drug therapy
CPT/HCPCS: 80053; 80061; 81025; 85025

== ENCOUNTER 2022-05-12 15:57 | Outpatient (CLI) | payer OTHER, SELFPAY ==
[2022-05-12 16:12] LABS: HCG Qualitative Urine. Negative (Negative)
== END 2022-05-12 15:58 | disposition home or self-care (01) ==
LOC: LAB 16:03
PROVIDERS: PCP Nurse Practitioner Family; Visit Provider Dermatology
DX: L70.0 Acne vulgaris (principal); Z79.899 Other long term (current) drug therapy
CPT/HCPCS: 81025

== ENCOUNTER 2022-05-19 10:31 | Outpatient (CLI) | payer OTHER, SELFPAY ==
[2022-05-19 12:22] LABS: Adenovirus Not Detected (NOT DETECT); Chlamydia Pneumoniae Not Detected (NOT DETECT); Coronavirus 229E,HKU1,NL63,OC4 Not Detected (NOT DETECT); Human Metapneumovirus Not Detected (NOT DETECT); Human Rhinovirus/Enterovirus Not Detected (NOT DETECT); Influenza A Not Detected (NOT DETECT); Influenza A H1 Not Detected (NOT DETECT); Influenza A H1-2009 Not Detected (NOT DETECT); Influenza A H3 Not Detected (NOT DETECT); Influenza B Not Detected (NOT DETECT); Mycoplasma Pneumoniae Not Detected (NOT DETECT); Parainfluenza Virus Type 1 Not Detected (NOT DETECT); Parainfluenza Virus Type 2 Not Detected (NOT DETECT); Parainfluenza Virus Type 3 Not Detected (NOT DETECT); Parainfluenza Virus Type 4 Not Detected (NOT DETECT); Respiratory Syncytial Virus A Not Detected (NOT DETECT); Respiratory Syncytial Virus B Not Detected (NOT DETECT); SARS-COV-2 Not Detected (NOT DETECT)
== END 2022-05-19 10:32 | disposition home or self-care (01) ==
LOC: LAB 10:34
PROVIDERS: PCP Nurse Practitioner Family; Visit Provider Family Medicine
DX: Z01.89 Encounter for other specified special examinations (principal)
CPT/HCPCS: 87635

== ENCOUNTER 2022-06-11 10:00 | Outpatient (CLI) | payer OTHER, SELFPAY ==
[2022-06-11 10:13] LABS: Basophils # 0.1 10^3/uL (0.0-0.1); Basophils % 0.8 %; Eosinophils # 0.1 10^3/uL (0.0-0.8); Eosinophils % 1.2 %; Hematocrit 39.7 % (37.0-47.0); Hemoglobin 12.8 g/dL (11.5-15.3); Lymphocytes # 1.6 10^3/uL (0.8-4.8); Mean Corpuscular HGB Conc 32.2 g/dL (30.0-36.0); Mean Corpuscular Hemoglobin 29.7 pg (28.0-34.0); Mean Corpuscular Volume 92.1 fl (81-99); Mean Platelet Volume 9.9 fL (7.4-10.4); Monocytes # 0.4 10^3/uL (0.2-0.9); Monocytes % 6.6 %; Neutrophils # 4.35 10^3/uL (1.8-7.7); Neutrophils % 67.1 %; Nucleated Red Blood Cells % 0 %; Platelet Count 276 10^3/cmm (130-400); Red Blood Count 4.31 10^6/uL (4.1-5.3); Red Cell Distribution Width 13.4 % (12.1-15.1); White Blood Count 6.5 10^3/uL (4.0-10.0)
[2022-06-11 10:24] LABS: HCG Qualitative Urine. Negative (Negative)
[2022-06-11 10:35] LABS: Alanine Aminotransferase 7 U/L (0-33); Albumin Level 4.4 g/dL (3.5-5.2); Alkaline Phosphatase 108 U/L (35-105); Anion Gap 11.8 (5-19); Aspartate Amino Transferase 16 U/L (0-32); Blood Urea Nitrogen 8 mg/dL (6-20); Calcium 9.3 mg/dL (8.5-10.5); Carbon Dioxide 26 mmol/L (22-29); Chloride 104 mmol/L (98-107); Chol HDL Ratio 2.54 mg/dL (0.0-4.40); Cholesterol 145 mg/dL (0-200); Globulin 2.6 g/dL (1.3-4.6); Glomerular Filtration Rate 150.3 mL/min (90-130); Glucose 90 mg/dL (65-115); HDL Cholesterol 57 mg/dL (60-100); LDL Cholesterol Calculated 78 mg/dL (50-129); LDL HDL Ratio 1.37 RATIO (0.00-3.22); Osmolality Calculated 284 mOsm/kg (285-295); Potassium 3.8 mmol/L (3.5-5.1); Sodium 138 mmol/L (136-145); Total Bilirubin 0.3 mg/dL (0.15-1.2); Triglycerides 50 mg/dL (0-150)
== END 2022-06-11 10:01 | disposition home or self-care (01) ==
LOC: LAB 10:01
PROVIDERS: PCP Nurse Practitioner Family; Visit Provider Dermatology
DX: L70.0 Acne vulgaris (principal); Z79.899 Other long term (current) drug therapy
CPT/HCPCS: 80053; 80061; 81025; 85025

== ENCOUNTER 2022-06-18 13:37 | Outpatient (CLI) | payer OTHER, SELFPAY ==
[2022-06-18 14:09] LABS: HCG Qualitative Urine. Negative (Negative)
== END 2022-06-18 13:38 | disposition home or self-care (01) ==
LOC: LAB 13:39
PROVIDERS: PCP Nurse Practitioner Family; Visit Provider Dermatology
DX: L70.0 Acne vulgaris (principal); Z79.899 Other long term (current) drug therapy
CPT/HCPCS: 81025

== ENCOUNTER → 2022-06-23 13:49 | Outpatient (BNVA) | payer OTHER, SELFPAY | PROVIDERS: PCP Nurse Practitioner Family; Referring Provider Dermatology; Visit Provider Podiatrist Foot & Ankle Surgery | DX: L03.031 Cellulitis of right toe (principal) | CPT/HCPCS: 73630 ==

== ENCOUNTER 2022-07-14 10:39 | Outpatient (CLI) | payer OTHER, MEDICAID, SELFPAY ==
[2022-07-14 11:02] LABS: Basophils % 0.6 %; Eosinophils # 0.1 10^3/uL (0.0-0.8); Eosinophils % 1.2 %; Hematocrit 40.9 % (37.0-47.0); Hemoglobin 13.4 g/dL (11.5-15.3); Lymphocytes # 1.9 10^3/uL (0.8-4.8); Lymphocytes % 28.5 %; Mean Corpuscular HGB Conc 32.8 g/dL (30.0-36.0); Mean Corpuscular Hemoglobin 29.7 pg (28.0-34.0); Mean Corpuscular Volume 90.7 fl (81-99); Mean Platelet Volume 9.5 fL (7.4-10.4); Monocytes # 0.4 10^3/uL (0.2-0.9); Monocytes % 5.4 %; Neutrophils # 4.26 10^3/uL (1.8-7.7); Neutrophils % 64.1 %; Nucleated Red Blood Cells % 0 %; Platelet Count 334 10^3/cmm (130-400); Red Blood Count 4.51 10^6/uL (4.1-5.3); Red Cell Distribution Width 12.9 % (12.1-15.1); White Blood Count 6.6 10^3/uL (4.0-10.0)
[2022-07-14 11:04] LABS: HCG Qualitative Urine. Negative (Negative)
--- NOTE | 2022-07-14 11:04 | MM_ITS ---
WS: [id number] RIGHT 3D TOMOSYNTHESIS DIGITAL MAMMOGRAPHY WITH CAD CLINICAL INFORMATION: ABNORMAL MAMMO 6 MO F/U HISTORY: Six-month follow-up COMPARISON: November 24, 2021 TECHNIQUE: 3 views of the right breast were obtained. FINDINGS: The right breast is composed of heterogeneous fibroglandular density tissue, which can limit the dete ction of small underlying mass lesions. Previously described RIGHT asymmetric density no longer seen today and has reportedly been resected. Ultrasound is described below. ULTRASOUND BREAST RIGHT TECHNIQUE: Ultrasound right breast focused area of concern. CLINICAL INFORMATION: ABNORMAL MAMMO 6 MO F/U FINDINGS: Ultrasound RIGHT breast 2:00 position in the area of prior palpable nodule. This has been resected si nce the prior examination. No evidence of residual or recurrent lesion. No other abnormalities. MM/[place] [id number] IMPRESSION: BI-RADS: 2-Benign FOLLOW UP: 1 Year Follow-up Recommend return to annual screening mammography.
[2022-07-14 11:24] LABS: Alanine Aminotransferase 10 U/L (0-33); Albumin Level 4.5 g/dL (3.5-5.2); Alkaline Phosphatase 129 U/L (35-105); Anion Gap 14.1 (5-19); Aspartate Amino Transferase 17 U/L (0-32); Blood Urea Nitrogen 11 mg/dL (6-20); Calcium 9.7 mg/dL (8.5-10.5); Carbon Dioxide 28 mmol/L (22-29); Chloride 103 mmol/L (98-107); Chol HDL Ratio 2.95 mg/dL (0.0-4.40); Cholesterol 162 mg/dL (0-200); Globulin 2.8 g/dL (1.3-4.6); Glucose 89 mg/dL (65-115); HDL Cholesterol 55 mg/dL (60-100); LDL Cholesterol Calculated 93 mg/dL (50-129); LDL HDL Ratio 1.69 RATIO (0.00-3.22); Osmolality Calculated 291 mOsm/kg (285-295); Potassium 4.1 mmol/L (3.5-5.1); Sodium 141 mmol/L (136-145); Total Bilirubin 0.3 mg/dL (0.15-1.2); Total Protein 7.3 g/dL (6.6-8.7); Triglycerides 72 mg/dL (0-150)
== END 2022-07-14 10:40 | disposition home or self-care (01) ==
PROVIDERS: Nurse Practitioner Family; PCP Nurse Practitioner Family; Referring Provider Dermatology; Visit Provider Nurse Practitioner Family
DX: Z79.899 Other long term (current) drug therapy (principal); R92.8 Other abnormal and inconclusive findings on diagnostic imaging of breast
CPT/HCPCS: 36415; 76642; 77061; 80053; 80061; 81025; 85025

== ENCOUNTER → 2022-07-22 16:51 | Outpatient (BNVA) | payer MEDICAID, SELFPAY | PROVIDERS: PCP Nurse Practitioner Family; Visit Provider Emergency Medicine | DX: J02.0 Streptococcal pharyngitis (principal) | CPT/HCPCS: 87071; 87880 ==

== ENCOUNTER 2022-08-19 15:29 | Outpatient (CLI) | payer OTHER, MEDICAID, SELFPAY ==
[2022-08-19 15:53] LABS: HCG Qualitative Urine. Negative (Negative)
== END 2022-08-19 15:30 | disposition home or self-care (01) ==
PROVIDERS: PCP Nurse Practitioner Family; Visit Provider Nurse Practitioner Family
DX: L70.0 Acne vulgaris (principal); Z79.899 Other long term (current) drug therapy
CPT/HCPCS: 81025

== ENCOUNTER 2022-08-30 15:07 | Emergency (ER) | payer MEDICAID, SELFPAY ==
[2022-08-30 15:22] VITALS: BP 114/81; PULSE 117; RESP 20; TEMP 37.6; O2SAT 97
--- NOTE | 2022-08-30 15:24 | ECG_ITS ---
[facility] Test Date: 2022-08-30 Pat Name: Maria Eugenia Montero Department: Room: Gender: Female Web Mobile Designer: : 1995 Requested By: Denis Pearson Order Number: [id number] Curtis MD: Jasmeet Eli M.D. Measurements Intervals [place] Rate: 118 P: 69 LA: 131 QRS: 62 QRSD: 80 T: 56 QT: 299 QTc: 419 Interpretive Statements SINUS TACHYCARDIA ABNORMAL RHYTHM ECG Compared to ECG 02/19/2022 22:38:38 Sinus bradycardia no longer present Sinus arrhythmia no longer present Electronically Signed On 08-31-2022 18:18:04 HR ASSISTANT by Jasmeet Eli M.D. [id number]
--- NOTE | 2022-08-30 16:14 | XRR_ITS ---
PROCEDURE INFORMATION: Exam: XR Chest Exam date and time: 08/30/2022 4:23 PM Age: 27 years old Clinical indication: Cough; Additional info: Cough, SOB TECHNIQUE: Imaging protocol: Radiologic exam of the chest. Views: 2 views. COMPARISON: CT chest abd pel w con* 01/25/2022 3:04 AM FINDINGS: Lungs: Unremarkable. No consolidation. Pleural spaces: Unremarkable. No pleural effusion. No pneumothorax. Heart/Mediastinum: Unremarkable. No cardiomegaly. Bones/joints: Unremarkable. XR/XR chest 2V* [id number] IMPRESSION: No acute findings.
--- NOTE | 2022-08-30 16:20 | W.ED.CHESTPA ---
Documented by User: Denis Pearson DO 08/30/22 18:11 HPI - Chest Pain General: Chief Complaint: Chest Pain Stated Complaint: Chest pain, fever, throat hurts. Time Seen by Provider: 08/30/22 16:09 History of Present Illness: 27-year-old female presents with feeling of dehydration, she has fever, cough, sore throat, chest pain with cough. She reports that her symptoms started 2 days ago and got worse. She also complains of generalized body aches little bit of abdominal discomfort. Associated symptoms: Reports dyspnea and fever(s); Deny nausea, palpitations or vomiting Review of Systems Const: Reports: fever(s), chills, body aches and fatigue Eyes: Denies: change in vision or eye discharge ENMT: Reports: throat pain; Denies: ear or mastoid pain Card: Reports: chest pain (With cough); Denies: palpitations Resp: Reports: dyspnea, non-productive cough and pain on inspiration; Denies: wheezing GI: Denies: nausea, vomiting or diarrhea : Denies: flank pain, difficulty voiding or urinary frequency Musc: Denies: neck pain or back pain Skin/Breast: Denies: rash or erythema Neuro: Denies: headache(s) or dizziness PFSH ED PFSH: Medical History Bleeding in early High risk medication use Surgical History H/O dilation and curettage 09/05/2020- suction D&C performed by Dr. Leung at [facility] No history of previous surgery Family History Grandmother Clotting disorder maternal Diabetes maternal Father Stroke Family/Other Breast cancer maternal aunt Denies family history of Colon cancer Ovarian cancer Heart disease Hyperlipidemia Anesthesia complication Bleeding disorder Hypertension Uterine cancer Thyroid condition Social History Smoking and tobacco status: never smoked Second hand smoke exposure: No Smoking risk assessment/counseling performed?: No Alcohol intake: former Former alcohol use details: prior to Desire information about alcohol rehabilitation?: No Counseling given: No Desire information about substance/drug rehabilitation?: No Counseling given: No Adopted: No Caregiver/support person: No Lives independently: Yes Household members: spouse Housing: House Marital status: Number of children: 2 service: No Current occupational status: employed Current occupation: [employer] Pets and animals: No History of recent travel: No Leisure activites: exercise Current gender identity: Female Female Reproductive History: Date of last menstrual period: 01/10/22 Physical Exam Const: COMMON NORMALS: no acute distress, patient oriented x3 and alert HENMT: COMMON NORMALS: normocephalic and hearing grossly normal bilaterally HEAD & SCALP: normocephalic Eye: COMMON NORMALS: EOMs intact bilaterally and conjunctivae normal CONJUNCTIVA: Yes conjunctivae normal Chest: CHEST: Yes Symmetrical chest wall rise Resp: COMMON NORMALS: normal respiratory effort, No use of accessory muscles and clear to auscultation bilaterally EFFORT & INSPECTION: Yes able to speak in complete sentences AUSCULTATION: clear to auscultation bilaterally Cardio: COMMON NORMALS: regular rhythm RATE: tachycardic RHYTHM: regular rhythm GI: COMMON NORMALS: Soft to palpation PALPATION: Yes Soft to palpation and Yes Tenderness to palpation present (GI) (Mild upper abdomen) Extremity: COMMON NORMALS: full ROM and capillary refill normal Neuro: COMMON NORMALS: patient oriented x3, moves all extremities and no focal motor deficits SENSORIUM/ORIENTATION: Yes alert Psych: COMMON NORMALS: Normal thought process present, cooperative, normal affect and speech normal SPEECH: Yes normal speech THOUGHT PROCESS: Normal thought process present Skin: COMMON NORMALS: no rashes or lesions noted and turgor normal GENERAL SKIN EXAM: no rashes or lesions noted and turgor normal Course Vital Signs: Vital signs: Vital Signs Temperature 99.7 F H 08/30/22 15:22 Pulse Rate 96 08/30/22 18:53 Respiratory Rate 20 H 08/30/22 15:22 Blood Pressure 113/68 08/30/22 18:53 Pulse Oximetry 99 08/30/22 18:53 Oxygen Delivery Me thod 08/30/22 16:24 MDM - Chest Pain Medical Decision Making Patient will likely have viral syndrome. We are awaiting respiratory panel patient to be handed off at shift change to Dr. Rivera while we await results and for further management as indicated. Lab Data 08/30/22 17:03 08/30/22 17:03 Radiology Impressions Chest X-Ray 08/30/22 16:14 IMPRESSION: No acute findings. Laboratory Results WBC 5.1 10^3/uL (4.0-10.0) 08/30/22 17:03 RBC 4.45 10^6/uL (4.1-5.3) 08/30/22 17:03 Hgb 13.6 g/dL (11.5-15.3) 08/30/22 17:03 Hct 41.6 % (37.0-47.0) 08/30/22 17:03 MCV 93.5 fl (81-99) 08/30/22 17:03 MCH 30.6 pg (28.0-34.0) 08/30/22 17:03 MCHC 32.7 g/dL (30.0-36.0) 08/30/22 17:03 RDW 12.7 % (12.1-15.1) 08/30/22 17:03 Plt Count 262 10^3/cmm (130-400) 08/30/22 17:03 MPV 9.5 fL (7.4-10.4) 08/30/22 17:03 Neut % (Auto) 76.4 % 08/30/22 17:03 Lymph % (Auto) 11.6 % 08/30/22 17:03 [place] % (Auto) 10.8 % 08/30/22 17:03 Eos % (Auto) 0.2 % 08/30/22 17:03 Baso % (Auto) 0.8 % 08/30/22 17:03 Neut # (Auto) 3.87 10^3/uL (1.8-7.7) 08/30/22 17:03 Lymph # (Auto) 0.6 10^3/uL (0.8-4.8) L 08/30/22 17:03 [place] # (Auto) 0.6 10^3/uL (0.2-0.9) 08/30/22 17:03 Eos # (Auto) 0.0 10^3/uL (0.0-0.8) 08/30/22 17:03 Baso # (Auto) 0.0 10^3/uL (0.0-0.1) 08/30/22 17:03 Nucleated RBC % (auto) 0 % 08/30/22 17:03 Nucleated RBCs # 0.0 /100WBC 08/30/22 17:03 Sodium 135 mmol/L (136-145) L 08/30/22 17:03 Potassium 3.5 mmol/L (3.5-5.1) 08/30/22 17:03 Chloride 99 mmol/L (98-107) 08/30/22 17:03 Carbon Dioxide 27 mmol/L (22-29) 08/30/22 17:03 Anion Gap 12.5 (5-19) 08/30/22 17:03 BUN 5 mg/dL (6-20) L 08/30/22 17:03 Creatinine 0.7 mg/dL (0.5-0.9) 08/30/22 17:03 GFR Calculation 102.0 mL/min (90-130) 08/30/22 17:03 Glucose 88 mg/dL (65-115) 08/30/22 17:03 Calculated Osmolality 277 mOsm/kg (285-295) L 08/30/22 17:03 Calcium 9.1 mg/dL (8.5-10.5) 08/30/22 17:03 Total Bilirubin 0.2 mg/dL (0.15-1.2) 08/30/22 17:03 AST 18 U/L (0-32) 08/30/22 17:03 ALT 9 U/L (0-33) 08/30/22 17:03 Alkaline Phosphatase 147 U/L (35-105) H 08/30/22 17:03 C-Reactive Protein 3.0 mg/L (0.0-4.9) 08/30/22 17:03 Total Protein 7.4 g/dL (6.6-8.7) 08/30/22 17:03 Albumin 4.2 g/dL (3.5-5.2) 08/30/22 17:03 Globulin 3.2 g/dL (1.3-4.6) 08/30/22 17:03 Nasal Influ A H1 2008 PCR Detected (NOT DETECT) A 08/30/22 16:20 Adenovirus (PCR) Not detected (NOT DETECT) 08/30/22 16:20 C. pneumoniae DNA (PCR) Not detected (NOT DETECT) 08/30/22 16:20 Coronavirus 229E (PCR) Not detected (NOT DETECT) 08/30/22 16:20 Human Metapneumovir PCR Not detected (NOT DETECT) 08/30/22 16:20 Influenza A (H1) PCR Not detected (NOT DETECT) 08/30/22 16:20 Influenza A (H3) PCR Not detected (NOT DETECT) 08/30/22 16:20 Influenza Type A (PCR) Detected (NOT DETECT) A 08/30/22 16:20 Influenza Type B (PCR) Not detected (NOT DETECT) 08/30/22 16:20 M. pneumoniae (PCR) Not detected (NOT DETECT) 08/30/22 16:20 Parainfluenza 1 (PCR) Not detected (NOT DETECT) 08/30/22 16:20 Parainfluenza 2 (PCR) Not detected (NOT DETECT) 08/30/22 16:20 Parainfluenza 3 (PCR) Not detected (NOT DETECT) 08/30/22 16:20 Parainfluenza 4 (PCR) Not detected (NOT DETECT) 08/30/22 16:20 RSV Type A (PCR) Not detected (NOT DETECT) 08/30/22 16:20 RSV Type B (PCR) Not detected (NOT DETECT) 08/30/22 16:20 Entero/Rhino (PCR) Not detected (NOT DETECT) 08/30/22 16:20 SARS-CoV-2 (PCR) Not detected (NOT DETECT) 08/30/22 16:20 Group A Strep Rapid Negative (Negative) 08/30/22 16:50 Discharge Plan Discharge Patient Disposition: Home Clinical Impression: Influenza A Condition: Stable Prescriptions: New ketorolac 10 mg tablet 10 mg PO TID PRN (Reason: pain) Qty: 10 0RF Xofluza 40 mg tablet 40 mg PO ONCE Qty: 2 0RF No Action acetaminophen-codeine 300-30 mg tablet 1 tab PO Q4H PRN (Reason: pain) 5 Days Qty: 20 0RF Control PO triamcinolone acetonide 0.1 % ointment 1 applic topical BID Qty: 80 0RF Rx Instructions: Apply to affected area no more than 2 weeks per month. Not for face phentermine 37.5 mg tablet 37.5 mg PO isotretinoin 30 mg capsule 30 mg PO BID Qty: 60 0RF Rx Instructions: must administer with a meal/food. [facility] [phone] Discharge Orders: Discharge ED (Routine); Ordered 08/30/22 Ordered By: Mihai Rivera Referrals: Ramila Petit APN [Primary Care Provider] - 1-3 days Patient Instructions: Influenza (ED) Coding Level of Care Code ED Teacher Dancing for Chg Fwd Exam Comprehensive Documented by User: Mihai Rivera, DO 08/30/22 19:36 HPI - Chest Pain General: Chief Complaint: Chest Pain Stated Complaint: Chest pain, fever, throat hurts. Time Seen by Provider: 08/30/22 16:09 PFSH ED PFSH: Medical History Bleeding in early High risk medication use Surgical History H/O dilation and curettage 09/05/2020- suction D&C performed by Dr. Leung at [facility] No history of previous surgery Family History Grandmother Clotting disorder maternal Diabetes maternal Father Stroke Family/Other Breast cancer maternal aunt Denies family history of Colon cancer Ovarian cancer Heart disease Hyperlipidemia Anesthesia complication Bleeding disorder Hypertension Uterine cancer Thyroid condition Social History Smoking and tobacco status: never smoked Second hand smoke exposure: No Smoking risk assessment/counseling performed?: No Alcohol intake: former Former alcohol use details: prior to Desire information about alcohol rehabilitation?: No Counseling given: No Desire information about substance/drug rehabilitation?: No Counseling given: No Adopted: No Caregiver/support person: No Lives independently: Yes Household members: spouse Housing: House Marital status: Number of children: 2 service: No Current occupational status: employed Current occupation: [employer] Pets and animals: No History of recent travel: No Leisure activites: exercise Current gender identity: Female Course Vital Signs: Vital signs: Vital Signs Temperature 99.7 F H 08/30/22 15:22 Pulse Rate 96 08/30/22 18:53 Respiratory Rate 20 H 08/30/22 15:22 Blood Pressure 113/68 08/30/22 18:53 Pulse Oximetry 99 08/30/22 18:53 Oxygen Delivery Me thod 08/30/22 16:24 MDM - Chest Pain Medical Decision Making Patient will likely have viral syndrome. We are awaiting respiratory panel patient to be handed off at shift change to Dr. Rivera while we await results and for further management as indicated. Received in checkout from Dr. Pearson. Patient has an elevation in temperature. CBC is normal. BMP is not remarkable. CRP is only 3. Patient has influenza A on respiratory panel. We will treat accordingly. There is a Tamiflu shortage locally, will so we will use the other antiviral. Chest x-ray is nonacute. Lab Data 08/30/22 17:03 08/30/22 17:03 Radiology Impressions Chest X-Ray 08/30/22 16:14 IMPRESSION: No acute findings. Laboratory Results WBC 5.1 10^3/uL (4.0-10.0) 08/30/22 17:03 RBC 4.45 10^6/uL (4.1-5.3) 08/30/22 17:03 Hgb 13.6 g/dL (11.5-15.3) 08/30/22 17:03 Hct 41.6 % (37.0-47.0) 08/30/22 17:03 MCV 93.5 fl (81-99) 08/30/22 17:03 MCH 30.6 pg (28.0-34.0) 08/30/22 17:03 MCHC 32.7 g/dL (30.0-36.0) 08/30/22 17:03 RDW 12.7 % (12.1-15.1) 08/30/22 17:03 Plt Count 262 10^3/cmm (130-400) 08/30/22 17:03 MPV 9.5 fL (7.4-10.4) 08/30/22 17:03 Neut % (Auto) 76.4 % 08/30/22 17:03 Lymph % (Auto) 11.6 % 08/30/22 17:03 [place] % (Auto) 10.8 % 08/30/22 17:03 Eos % (Auto) 0.2 % 08/30/22 17:03 Baso % (Auto) 0.8 % 08/30/22 17:03 Neut # (Auto) 3.87 10^3/uL (1.8-7.7) 08/30/22 17:03 Lymph # (Auto) 0.6 10^3/uL (0.8-4.8) L 08/30/22 17:03 [place] # (Auto) 0.6 10^3/uL (0.2-0.9) 08/30/22 17:03 Eos # (Auto) 0.0 10^3/uL (0.0-0.8) 08/30/22 17:03 Baso # (Auto) 0.0 10^3/uL (0.0-0.1) 08/30/22 17:03 Nucleated RBC % (auto) 0 % 08/30/22 17:03 Nucleated RBCs # 0.0 /100WBC 08/30/22 17:03 Sodium 135 mmol/L (136-145) L 08/30/22 17:03 Potassium 3.5 mmol/L (3.5-5.1) 08/30/22 17:03 Chloride 99 mmol/L (98-107) 08/30/22 17:03 Carbon Dioxide 27 mmol/L (22-29) 08/30/22 17:03 Anion Gap 12.5 (5-19) 08/30/22 17:03 BUN 5 mg/dL (6-20) L 08/30/22 17:03 Creatinine 0.7 mg/dL (0.5-0.9) 08/30/22 17:03 GFR Calculation 102.0 mL/min (90-130) 08/30/22 17:03 Glucose 88 mg/dL (65-115) 08/30/22 17:03 Calculated Osmolality 277 mOsm/kg (285-295) L 08/30/22 17:03 Calcium 9.1 mg/dL (8.5-10.5) 08/30/22 17:03 Total Bilirubin 0.2 mg/dL (0.15-1.2) 08/30/22 17:03 AST 18 U/L (0-32) 08/30/22 17:03 ALT 9 U/L (0-33) 08/30/22 17:03 Alkaline Phosphatase 147 U/L (35-105) H 08/30/22 17:03 C-Reactive Protein 3.0 mg/L (0.0-4.9) 08/30/22 17:03 Total Protein 7.4 g/dL (6.6-8.7) 08/30/22 17:03 Albumin 4.2 g/dL (3.5-5.2) 08/30/22 17:03 Globulin 3.2 g/dL (1.3-4.6) 08/30/22 17:03 Nasal Influ A H1 2009 PCR Detected (NOT DETECT) A 08/30/22 16:20 Adenovirus (PCR) Not detected (NOT DETECT) 08/30/22 16:20 C. pneumoniae DNA (PCR) Not detected (NOT DETECT) 08/30/22 16:20 Coronavirus 229E (PCR) Not detected (NOT DETECT) 08/30/22 16:20 Human Metapneumovir PCR Not detected (NOT DETECT) 08/30/22 16:20 Influenza A (H1) PCR Not detected (NOT DETECT) 08/30/22 16:20 Influenza A (H3) PCR Not detected (NOT DETECT) 08/30/22 16:20 Influenza Type A (PCR) Detected (NOT DETECT) A 08/30/22 16:20 Influenza Type B (PCR) Not detected (NOT DETECT) 08/30/22 16:20 M. pneumoniae (PCR) Not detected (NOT DETECT) 08/30/22 16:20 Parainfluenza 1 (PCR) Not detected (NOT DETECT) 08/30/22 16:20 Parainfluenza 2 (PCR) Not detected (NOT DETECT) 08/30/22 16:20 Parainfluenza 3 (PCR) Not detected (NOT DETECT) 08/30/22 16:20 Parainfluenza 4 (PCR) Not detected (NOT DETECT) 08/30/22 16:20 RSV Type A (PCR) Not detected (NOT DETECT) 08/30/22 16:20 RSV Type B (PCR) Not detected (NOT DETECT) 08/30/22 16:20 Entero/Rhino (PCR) Not detected (NOT DETECT) 08/30/22 16:20 SARS-CoV-2 (PCR) Not detected (NOT DETECT) 08/30/22 16:20 Group A Strep Rapid Negative (Negative) 08/30/22 16:50 Discharge Plan Discharge Patient Disposition: Home Clinical Impression: Influenza A Condition: Stable Prescriptions: New ketorolac 10 mg tablet 10 mg PO TID PRN (Reason: pain) Qty: 10 0RF Xofluza 40 mg tablet 40 mg PO ONCE Qty: 2 0RF No Action acetaminophen-codeine 300-30 mg tablet 1 tab PO Q4H PRN (Reason: pain) 5 Days Qty: 20 0RF Control PO triamcinolone acetonide 0.1 % ointment 1 applic topical BID Qty: 80 0RF Rx Instructions: Apply to affected area no more than 2 weeks per month. Not for face phentermine 37.5 mg tablet 37.5 mg PO isotretinoin 30 mg capsule 30 mg PO BID Qty: 60 0RF Rx Instructions: must administer with a meal/food. ipledge [id number] Discharge Orders: Discharge ED (Routine); Ordered 08/30/22 Ordered By: Mihai Rivera Referrals: Ramila Petit APN [Primary Care Provider] - 1-3 days Patient Instructions: Influenza (ED) Coding Level of Care Code ED Teacher Dancing for Evan Fwd Exam Comprehensive
[2022-08-30 16:24] VITALS: BP 114/73; PULSE 114; O2SAT 99
[2022-08-30 16:33] VITALS: PULSE 107
[2022-08-30] MEDS: lactated ringers 1,000 ML 999 ML IV (17:06)
[2022-08-30] MEDS: ketorolac 30 mg/mL INJ 15 MG IVP (17:06)
[2022-08-30 17:11] LABS: Basophils % 0.8 %; Eosinophils % 0.2 %; Hematocrit 41.6 % (37.0-47.0); Hemoglobin 13.6 g/dL (11.5-15.3); Lymphocytes # 0.6 10^3/uL (0.8-4.8); Lymphocytes % 11.6 %; Mean Corpuscular HGB Conc 32.7 g/dL (30.0-36.0); Mean Corpuscular Hemoglobin 30.6 pg (28.0-34.0); Mean Corpuscular Volume 93.5 fl (81-99); Mean Platelet Volume 9.5 fL (7.4-10.4); Monocytes # 0.6 10^3/uL (0.2-0.9); Monocytes % 10.8 %; Neutrophils # 3.87 10^3/uL (1.8-7.7); Neutrophils % 76.4 %; Nucleated Red Blood Cells % 0 %; Platelet Count 262 10^3/cmm (130-400); Red Blood Count 4.45 10^6/uL (4.1-5.3); Red Cell Distribution Width 12.7 % (12.1-15.1); White Blood Count 5.1 10^3/uL (4.0-10.0)
[2022-08-30 17:21] LABS: Rapid Strep A Test Negative (Negative)
[2022-08-30 17:27] LABS: Alanine Aminotransferase 9 U/L (0-33); Albumin Level 4.2 g/dL (3.5-5.2); Alkaline Phosphatase 147 U/L (35-105); Anion Gap 12.5 (5-19); Aspartate Amino Transferase 18 U/L (0-32); Blood Urea Nitrogen 5 mg/dL (6-20); Calcium 9.1 mg/dL (8.5-10.5); Carbon Dioxide 27 mmol/L (22-29); Chloride 99 mmol/L (98-107); Globulin 3.2 g/dL (1.3-4.6); Glucose 88 mg/dL (65-115); Osmolality Calculated 277 mOsm/kg (285-295); Potassium 3.5 mmol/L (3.5-5.1); Sodium 135 mmol/L (136-145); Total Bilirubin 0.2 mg/dL (0.15-1.2); Total Protein 7.4 g/dL (6.6-8.7)
[2022-08-30 18:00] VITALS: BP 113/68; PULSE 98; O2SAT 100
[2022-08-30 18:36] LABS: Adenovirus Not Detected (NOT DETECT); Chlamydia Pneumoniae Not Detected (NOT DETECT); Coronavirus 229E,HKU1,NL63,OC4 Not Detected (NOT DETECT); Human Metapneumovirus Not Detected (NOT DETECT); Human Rhinovirus/Enterovirus Not Detected (NOT DETECT); Influenza A Detected (NOT DETECT); Influenza A H1 Not Detected (NOT DETECT); Influenza A H1-2009 Detected (NOT DETECT); Influenza A H3 Not Detected (NOT DETECT); Influenza B Not Detected (NOT DETECT); Mycoplasma Pneumoniae Not Detected (NOT DETECT); Parainfluenza Virus Type 1 Not Detected (NOT DETECT); Parainfluenza Virus Type 2 Not Detected (NOT DETECT); Parainfluenza Virus Type 3 Not Detected (NOT DETECT); Parainfluenza Virus Type 4 Not Detected (NOT DETECT); Respiratory Syncytial Virus A Not Detected (NOT DETECT); Respiratory Syncytial Virus B Not Detected (NOT DETECT); SARS-COV-2 Not Detected (NOT DETECT)
[2022-08-30 18:53] VITALS: BP 113/68; PULSE 96; O2SAT 99
== END 2022-08-30 18:55 | disposition home or self-care (01) ==
PROVIDERS: Emergency Medicine; Student in an Organized Health Care Education/Training Program; Emergency Provider Emergency Medicine; PCP Nurse Practitioner Family
DX: J10.1 Influenza due to other identified influenza virus with other respiratory manifestations (principal)
CPT/HCPCS: 71046; 80053; 85025; 86140; 87081; 87486; 87581; 87633; 87880; 93005; 96374; 99285; J1885; J7120

== ENCOUNTER 2022-09-16 15:16 | Outpatient (CLI) | payer MEDICAID, SELFPAY ==
[2022-09-16 15:28] LABS: HCG Qualitative Urine. Negative (Negative)
== END 2022-09-16 15:17 | disposition home or self-care (01) ==
LOC: LAB 15:17
PROVIDERS: PCP Nurse Practitioner Family; Visit Provider Nurse Practitioner Family
DX: Z79.899 Other long term (current) drug therapy (principal)
CPT/HCPCS: 81025

== ENCOUNTER 2022-10-14 09:45 | Outpatient (CLI) | payer MEDICAID, SELFPAY ==
[2022-10-14 10:21] LABS: Alanine Aminotransferase 8 U/L (0-33); Albumin Level 4.3 g/dL (3.5-5.2); Alkaline Phosphatase 113 U/L (35-105); Aspartate Amino Transferase 16 U/L (0-32); Blood Urea Nitrogen 11 mg/dL (6-20); Carbon Dioxide 26 mmol/L (22-29); Chloride 105 mmol/L (98-107); Chol HDL Ratio 2.54 mg/dL (0.0-4.40); Cholesterol 155 mg/dL (0-200); Globulin 2.8 g/dL (1.3-4.6); Glomerular Filtration Rate 150.3 mL/min (90-130); Glucose 91 mg/dL (65-115); HDL Cholesterol 61 mg/dL (60-100); LDL Cholesterol Calculated 81 mg/dL (50-129); LDL HDL Ratio 1.33 RATIO (0.00-3.22); Osmolality Calculated 289 mOsm/kg (285-295); Sodium 140 mmol/L (136-145); Total Bilirubin 0.3 mg/dL (0.15-1.2); Total Protein 7.1 g/dL (6.6-8.7); Triglycerides 64 mg/dL (0-150)
[2022-10-14 10:23] LABS: Anion Gap 13.2 (5-19); Potassium 4.2 mmol/L (3.5-5.1)
[2022-10-14 12:35] LABS: HCG Qualitative Urine. Negative (Negative)
== END 2022-10-14 09:46 | disposition home or self-care (01) ==
PROVIDERS: PCP Nurse Practitioner Family; Visit Provider Nurse Practitioner Family
DX: Z13.6 Encounter for screening for cardiovascular disorders (principal); Z79.899 Other long term (current) drug therapy
CPT/HCPCS: 36415; 80053; 80061; 81025

== ENCOUNTER 2022-10-22 15:38 | Outpatient (CLI) | payer MEDICAID, SELFPAY ==
[2022-10-22 17:03] LABS: HCG Qualitative Urine. Negative (Negative)
== END 2022-10-22 15:39 | disposition home or self-care (01) ==
PROVIDERS: Dermatology; PCP Nurse Practitioner Family; Visit Provider Nurse Practitioner Family
DX: L70.0 Acne vulgaris (principal)
CPT/HCPCS: 81025

== ENCOUNTER 2022-11-17 11:15 | Outpatient (CLI) | payer MEDICAID, SELFPAY ==
[2022-11-17 11:50] LABS: Estmated Average Glucose 88; Hemoglobin A1C 4.7 % (4.0-6.0)
[2022-11-17 11:54] LABS: Chol HDL Ratio 2.42 mg/dL (0.0-4.40); Cholesterol 143 mg/dL (0-200); Glucose 84 mg/dL (65-115); HDL Cholesterol 59 mg/dL (60-100); LDL Cholesterol Calculated 72 mg/dL (50-129); LDL HDL Ratio 1.22 RATIO (0.00-3.22); Triglycerides 62 mg/dL (0-150)
== END 2022-11-17 11:16 | disposition home or self-care (01) ==
LOC: LAB 11:17
PROVIDERS: PCP Nurse Practitioner Family; Visit Provider Pathology Anatomic Pathology & Clinical Pathology
DX: Z01.89 Encounter for other specified special examinations (principal)
CPT/HCPCS: 80061; 82947; 83036

== ENCOUNTER 2022-11-17 11:18 | Outpatient (CLI) | payer MEDICAID, SELFPAY ==
[2022-11-17 12:15] LABS: HCG Qualitative Urine. Negative (Negative)
== END 2022-11-17 11:19 | disposition home or self-care (01) ==
LOC: LAB 11:19
PROVIDERS: PCP Nurse Practitioner Family; Visit Provider Nurse Practitioner Family
DX: Z79.899 Other long term (current) drug therapy (principal); L70.0 Acne vulgaris
CPT/HCPCS: 81025

== ENCOUNTER 2022-12-16 09:58 | Outpatient (CLI) | payer OTHER, MEDICAID, SELFPAY ==
[2022-12-16 10:58] LABS: Basophils # 0.1 10^3/uL (0.0-0.1); Basophils % 0.6 %; Eosinophils # 0.1 10^3/uL (0.0-0.8); Eosinophils % 1.2 %; Hematocrit 38.7 % (37.0-47.0); Hemoglobin 12.2 g/dL (11.5-15.3); Lymphocytes # 1.4 10^3/uL (0.8-4.8); Lymphocytes % 18.4 %; Mean Corpuscular HGB Conc 31.5 g/dL (30.0-36.0); Mean Corpuscular Hemoglobin 29.7 pg (28.0-34.0); Mean Corpuscular Volume 94.2 fl (81-99); Mean Platelet Volume 9.7 fL (7.4-10.4); Monocytes # 0.5 10^3/uL (0.2-0.9); Monocytes % 6.8 %; Neutrophils % 72.7 %; Nucleated Red Blood Cells % 0 %; Platelet Count 270 10^3/cmm (130-400); Red Blood Count 4.11 10^6/uL (4.1-5.3); Red Cell Distribution Width 12.6 % (12.1-15.1); White Blood Count 7.7 10^3/uL (4.0-10.0)
[2022-12-16 11:28] LABS: Estmated Average Glucose 91; Hemoglobin A1C 4.8 % (4.0-6.0)
[2022-12-16 11:33] LABS: Alanine Aminotransferase 7 U/L (0-33); Alkaline Phosphatase 108 U/L (35-105); Aspartate Amino Transferase 15 U/L (0-32); Blood Urea Nitrogen 10 mg/dL (6-20); Calcium 9.2 mg/dL (8.5-10.5); Carbon Dioxide 28 mmol/L (22-29); Chloride 101 mmol/L (98-107); Chol HDL Ratio 2.22 mg/dL (0.0-4.40); Cholesterol 142 mg/dL (0-200); Free T4 Free Thyroxine 1.39 ng/dL (0.82-1.77); Glucose 88 mg/dL (65-115); HDL Cholesterol 64 mg/dL (60-100); LDL Cholesterol Calculated 68 mg/dL (50-129); LDL HDL Ratio 1.06 RATIO (0.00-3.22); Osmolality Calculated 284 mOsm/kg (285-295); Sodium 138 mmol/L (136-145); Thyroid Stimulating Hormone 1.13 uIU/mL (0.27-4.20); Total Bilirubin 0.2 mg/dL (0.15-1.2); Triglycerides 51 mg/dL (0-150)
[2022-12-16 16:30] LABS: HCG Qualitative Urine. Negative (Negative)
== END 2022-12-16 09:59 | disposition home or self-care (01) ==
PROVIDERS: PCP Nurse Practitioner Family; Referring Provider Nurse Practitioner Family; Visit Provider Nurse Practitioner Family
DX: Z13.29 Encounter for screening for other suspected endocrine disorder (principal); L70.0 Acne vulgaris; Z79.899 Other long term (current) drug therapy
CPT/HCPCS: 36415; 80053; 80061; 81025; 83036; 84439; 84443; 85025

== ENCOUNTER 2022-12-18 11:10 | Outpatient (CLI) | payer OTHER, MEDICAID, SELFPAY ==
--- NOTE | 2022-12-18 | XR_ITS ---
WS: [id number] Chest 2 views, 12/18/2022 Clinical Data: BRONCHITIS Comparison: Two-view chest, 08/30/2022 Findings: No nodules, masses or effusions are seen. The heart is normal. The pulmonary vascularity is not increased. No pneumonia or pneumothorax is seen. XR/XR chest 2V* [id number] Impression: Negative chest.
== END 2022-12-18 11:11 | disposition home or self-care (01) ==
PROVIDERS: PCP Nurse Practitioner Family; Visit Provider Nurse Practitioner Family
DX: J40 Bronchitis, not specified as acute or chronic (principal)
CPT/HCPCS: 71046

== ENCOUNTER 2023-07-09 22:05 | Emergency (ER) | payer OTHER, MEDICAID, SELFPAY ==
--- NOTE | 2023-07-09 22:18 | ECG_ITS ---
[facility] Test Date: 2023-07-09 Pat Name: Maria Eugenia Montero Department: Room: Gender: Female Sod Farmer: : 1995 Requested By: Qi Darling Order Number: [id number] Kirsten MD: Jasmeet Eli M.D. Measurements Intervals [place] Rate: 93 P: 55 PA: 134 QRS: 26 QRSD: 83 T: 49 QT: 326 QTc: 407 Interpretive Statements SINUS RHYTHM Compared to ECG 08/30/2022 15:27:30 Sinus tachycardia no longer present Electronically Signed On 07-10-2023 9:37:17 CDT by Jasmeet Eli M.D. [id number]
[2023-07-09 22:19] VITALS: BP 137/87; PULSE 105; RESP 17; TEMP 36.6; O2SAT 100; BMI 31.1
--- NOTE | 2023-07-09 22:38 | W.ED.CHESTPA ---
HPI - Chest Pain General: Chief Complaint: Chest Pain Stated Complaint: chest pains Time Seen by Provider: 07/09/23 22:31 History of Present Illness: 28-year-old female presents with multiple complaints including chest pain, shortness of breath, leg pain. She states that she has been having left leg pain with pain primarily located in the left medial thigh for approximately 1 week. She denies any swelling of the leg. She does have a history of previous DVT in the right leg. This evening she was having dinner when she had a sudden onset of upper mid back pain. Pain was nonradiating. She did have some shortness of breath related to the pain. She states with her previous leg DVT she had similar type back pain. Denies any history of PE. She is not on control and last menstrual cycle was 2 weeks ago. No significant medical history other than previous DVT. She is not currently on blood thinning medications. No nausea or vomiting. No other recent illness. Associated symptoms: Reports dyspnea and palpitations; Deny abdominal pain, fever(s), nausea or vomiting Review of Systems Const: Denies: fever(s) or chills Card: Reports: palpitations Resp: Reports: dyspnea GI: Denies: abdominal pain, nausea or vomiting Musc: Reports: back pain (upper mid back pain) Neuro: Denies: headache(s) PFSH ED PFSH: Medical History Bleeding in early High risk medication use Surgical History H/O dilation and curettage 09/05/2020- suction D&C performed by Dr. Leung at [facility] No history of previous surgery Family History Grandmother Clotting disorder maternal Diabetes maternal Father Stroke Family/Other Breast cancer maternal aunt Denies family history of Colon cancer Ovarian cancer Heart disease Hyperlipidemia Anesthesia complication Bleeding disorder Hypertension Uterine cancer Thyroid condition Social History Smoking and tobacco status: never smoked Second hand smoke exposure: No Smoking risk assessment/counseling performed?: No Alcohol intake: former Former alcohol use details: prior to Desire information about alcohol rehabilitation?: No Counseling given: No Substance/Drug Use: never Desire information about substance/drug rehabilitation?: No Counseling given: No Adopted: No Caregiver/support person: No Lives independently: Yes Household members: spouse Housing: House Marital status: Number of children: 2 service: No Current occupational status: employed Current occupation: [employer] Pets and animals: No Leisure activites: exercise Do you think of yourself as: Straight/Heterosexual Current gender identity: Female Physical Exam Const: COMMON NORMALS: patient oriented x3 and alert; apparent distress (mild distress) HENMT: COMMON NORMALS: normocephalic and atraumatic HEAD & SCALP: normocephalic and atraumatic Chest: COMMONS NORMALS: normal inspection of the chest and normal palpation of entire chest wall Resp: COMMON NORMALS: normal respiratory effort, No use of accessory muscles and clear to auscultation bilaterally AUSCULTATION: clear to auscultation bilaterally Cardio: COMMON NORMALS: regular rhythm; negative for regular rate (mild tachycardia) RATE: abnormal rate (mild tachycardia) RHYTHM: regular rhythm GI: COMMON NORMALS: Soft to palpation and non-tender PALPATION: Yes Soft to palpation Back/Pelvis: THORACIC SPINE/UPPER BACK: Yes normal to inspection and Yes thoracic spinal tenderness Extremity: LEFT LOWER EXTREMITY: Yes upper leg (tenderness to left medial thigh) Neuro: COMMON NORMALS: patient oriented x3 SENSORIUM/ORIENTATION: Yes alert Course Vital Signs: Vital signs: Vital Signs Temperature 98 F 07/09/23 22:19 Pulse Rate 92 07/10/23 00:40 Respiratory Rate 14 07/10/23 00:40 Blood Pressure 114/75 07/10/23 00:40 Pulse Oximetry 94 07/10/23 00:40 Oxygen Delivery Me thod Room Air 07/10/23 00:40 MDM - Chest Pain Medical Decision Making 28-year-old female presents with complaint of left medial thigh pain, upper mid back pain, and shortness of breath and chest pain. She states that her left leg has been bothering her for approximately 1 week but denies any swelling. She also reports mid upper back pain that began tonight after dinner. She does not have any abdominal pain but does report some chest discomfort as well. Denies any fever or chills. No nausea or vomiting. Some shortness of breath. No diaphoresis. Does have history of previous right lower leg DVT. Reports her symptoms are exactly the same as when she had her DVT. DDx: DVT, PE, STEMI, NSTEMI, cholelithiasis, choledocholithiasis, biliary dyskinesia Laboratory evaluation was unremarkable for abnormalities. CT chest for PE was negative. Venous Doppler of the left leg was also negative for DVT. During the ED stay, the patient did receive 25 mics of fentanyl, Zofran, Toradol. She had almost near resolution of pain after the Toradol dosing. We discussed all laboratory and imaging findings. Have recommended follow-up with primary care provider. She verbalizes understanding the plan and agrees with discharge. Lab Data 07/09/23 22:51 07/09/23 22:51 Radiology Impressions Chest CTA 07/09/23 22:44 IMPRESSION: 1. Negative for pulmonary embolus 2. Cholecystectomy. Venous Duplex 07/10/23 00:02 IMPRESSION: No evidence of deep vein thrombosis. Laboratory Results WBC 6.84 10^3/uL (3.29-11.43) 07/09/23 22:51 RBC 4.33 10^6/uL (3.85-5.65) 07/09/23 22:51 Hgb 13.50 g/dL (11.27-16.99) 07/09/23 22:51 Hct 40.5 % (36-47) 07/09/23 22:51 MCV 93.5 fl (85-98) 07/09/23 22:51 MCH 31.2 pg (27-33) 07/09/23 22:51 MCHC 33.3 g/dL (30-55) 07/09/23 22:51 RDW 12.1 % (12.1-15.1) 07/09/23 22:51 Plt Count 276 10^3/cmm (157-399) 07/09/23 22:51 MPV 9.4 fL (7.4-10.4) 07/09/23 22:51 Neut % (Auto) 57.9 % 07/09/23 22:51 Lymph % (Auto) 32.3 % 07/09/23 22:51 [place] % (Auto) 7.0 % 07/09/23 22:51 Eos % (Auto) 1.5 % 07/09/23 22:51 Baso % (Auto) 1.2 % 07/09/23 22:51 Neut # (Auto) 3.96 10^3/uL (1.8-7.7) 07/09/23 22:51 Lymph # (Auto) 2.2 10^3/uL (0.8-4.8) 07/09/23 22:51 [place] # (Auto) 0.5 10^3/uL (0.2-0.9) 07/09/23 22:51 Eos # (Auto) 0.1 10^3/uL (0.0-0.8) 07/09/23 22:51 Baso # (Auto) 0.1 10^3/uL (0.0-0.1) 07/09/23 22:51 Nucleated RBC % (auto) 0 % 07/09/23 22:51 Nucleated RBCs # 0.0 /100WBC 07/09/23 22:51 Sodium 140 mmol/L (136-145) 07/09/23 22:51 Potassium 3.7 mmol/L (3.5-5.1) 07/09/23 22:51 Chloride 101 mmol/L (98-107) 07/09/23 22:51 Carbon Dioxide 30 mmol/L (22-29) H 07/09/23 22:51 Anion Gap 12.7 (5-19) 07/09/23 22:51 BUN 9 mg/dL (6-20) 07/09/23 22:51 Creatinine 0.7 mg/dL (0.5-0.9) 07/09/23 22:51 GFR Calculation 101.1 mL/min (90-130) 07/09/23 22:51 Glucose 76 mg/dL (65-115) 07/09/23 22:51 Calculated Osmolality 287 mOsm/kg (285-295) 07/09/23 22:51 Calcium 9.9 mg/dL (8.5-10.5) 07/09/23 22:51 Total Bilirubin 0.3 mg/dL (0.15-1.2) 07/09/23 22:51 AST 16 U/L (0-32) 07/09/23 22:51 ALT 9 U/L (0-33) 07/09/23 22:51 Alkaline Phosphatase 119 U/L (35-105) H 07/09/23 22:51 Troponin T Baseline < 6 ng/L (0-10) 07/09/23 22:51 Total Protein 7.3 g/dL (6.6-8.7) 07/09/23 22:51 Albumin 4.9 g/dL (3.5-5.2) 07/09/23 22:51 Globulin 2.4 g/dL (1.3-4.6) 07/09/23 22:51 Lipase 37 U/L (13-60) 07/09/23 22:51 HCG, Qual Negative (Negative) 07/09/23 23:28 Urine Color Light yellow (Yellow) 07/09/23 23:28 Urine Appearance Clear (CLEAR) 07/09/23 23:28 Urine pH 7 (5-7) 07/09/23 23:28 Ur Specific [place] 1.005 (1.005-1.030) 07/09/23 23:28 Urine Protein Neg (Negative) 07/09/23 23:28 Urine Glucose (UA) Norm (Normal) 07/09/23 23:28 Urine Ketones Negative (Negative) 07/09/23 23:28 Urine Blood Neg (Negative) 07/09/23 23:28 Urine Nitrate Negative (Negative) 07/09/23 23:28 Urine Bilirubin Neg (Negative) 07/09/23 23:28 Urine Urobilinogen Neg mg/dL (Negative) 07/09/23 23:28 Ur Leukocyte Esterase Negative (Negative) 07/09/23 23:28 All radiology interpretation(s) finalized by discharge EKG Data EKG 1: Interpretation: Normal sinus rhythm rate of 93. Normal intervals. QTc of 377. No acute ST segment changes or T wave abnormalities identified. Discharge Plan Discharge Patient Disposition: Home Clinical Impression: Acute thoracic back pain, Left thigh pain, Chest pain Condition: Stable Prescriptions: No Action acetaminophen-codeine 300-30 mg tablet 1 tab PO Q4H PRN (Reason: pain) 5 Days Qty: 20 0RF Control PO triamcinolone acetonide 0.1 % ointment 1 applic topical BID Qty: 80 0RF Rx Instructions: Apply to affected area no more than 2 weeks per month. Not for face phentermine 37.5 mg tablet 37.5 mg PO valacyclovir [Valtrex] 1 gram tablet 2,000 mg PO BID PRN (Reason: HSV-recurrent oral disease.) Qty: 14 0RF Rx Instructions: Take 2 tabs at onset of lesion, repeat dose in 12 hours. azelaic acid [Finacea] 15 % gel 1 applic topical BID 90 Days Qty: 50 2RF Rx Instructions: Apply to face, twice daily, for three months. ketorolac 10 mg tablet 10 mg PO TID PRN (Reason: pain) Qty: 10 0RF Xofluza 40 mg tablet 40 mg PO ONCE Qty: 2 0RF Discharge Orders: Discharge ED (Routine); Ordered 07/10/23 Ordered By: Kristan Lovett Referrals: Damaso,SOLOMON Mcgrath [Primary Care Provider] - Discharge Diet: Usual diet Discharge Activity: Resume usual activity Patient Instructions: Opioid Safety, Pain Management Activity Restrictions/Additional Instructions: No ibuprofen, Motrin, other NSAID for 24 hours. May use Tylenol as needed for pain. Follow-up with your PCP in the next 1 to 2 weeks. Return to the ER for any new or worsening problems. Coding Level of Care Code ED [employer] Station Supervisor for Evan Childs
--- NOTE | 2023-07-09 22:44 | CTR_ITS ---
PROCEDURE INFORMATION: Exam: CTA Chest With Contrast Exam date and time: 07/09/2023 11:11 PM Age: 28 years old Clinical indication: Angina and shortness of breath; Additional info: Back and chest pain with previous HX of dvt TECHNIQUE: Imaging protocol: Computed tomographic angiography of the chest with contrast. Exam focused on the arteries. 3D rendering (Not supervised by radiologist): MIP and/or 3D reconstructed images were created by the technologist. Radiation optimization: All CT scans at this facility use at least one of these dose optimization techniques: automated exposure control; mA and/or kV adjustment per patient size (includes targeted exams where dose is matched to clinical indication); or iterative reconstruction. Contrast material: OMNIPAQUE 350; Contrast volume: 100 ml; Contrast route: INTRAVENOUS (IV); REPORTING DATA: Count of CT and Cardiac NM exams in prior 12 months: This patient has received 0 known CTs and 0 known cardiac nuclear medicine studies in the 12 months prior to the current study. COMPARISON: CT angio chest PE protcl [id number] 11/24/2018 3:37 AM RADIATION DOSE METRICS: Total DLP (mGy-cm): 370.21 FINDINGS: Pulmonary arteries: Normal. No pulmonary emboli. Aorta: Unremarkable. No aortic aneurysm. No aortic dissection. Lungs: Unremarkable. No consolidation. No masses. Pleural spaces: Unremarkable. No pneumothorax. No pleural effusion. Heart: Unremarkable. No cardiomegaly. No pericardial effusion. Lymph nodes: Unremarkable. No enlarged lymph nodes. Gallbladder and bile ducts: Cholecystectomy. Bones/joints: Unremarkable. No acute fracture. Soft tissues: Unremarkable. CT/CT angio chest PE protcl [id number] IMPRESSION: 1. Negative for pulmonary embolus 2. Cholecystectomy.
[2023-07-09] MEDS: iohexol 350 mg/mL 500 mL Btl (per mL) IV (22:51)
[2023-07-09 22:56] VITALS: BP 155/87; PULSE 91; RESP 13; O2SAT 91
[2023-07-09 22:56] LABS: Basophils # 0.1 10^3/uL (0.0-0.1); Basophils % 1.2 %; Eosinophils # 0.1 10^3/uL (0.0-0.8); Eosinophils % 1.5 %; Hematocrit 40.5 % (36-47); Lymphocytes # 2.2 10^3/uL (0.8-4.8); Lymphocytes % 32.3 %; Mean Corpuscular HGB Conc 33.3 g/dL (30-55); Mean Corpuscular Hemoglobin 31.2 pg (27-33); Mean Corpuscular Volume 93.5 fl (85-98); Mean Platelet Volume 9.4 fL (7.4-10.4); Monocytes # 0.5 10^3/uL (0.2-0.9); Neutrophils # 3.96 10^3/uL (1.8-7.7); Neutrophils % 57.9 %; Nucleated Red Blood Cells % 0 %; Platelet Count 276 10^3/cmm (157-399); Red Blood Count 4.33 10^6/uL (3.85-5.65); Red Cell Distribution Width 12.1 % (12.1-15.1); White Blood Count 6.84 10^3/uL (3.29-11.43)
[2023-07-09 23:03] VITALS: RESP 23; O2SAT 100
[2023-07-09] MEDS: ondansetron 2 mg/ML SDV 2 mL 4 MG IVP (23:03)
[2023-07-09] MEDS: fentaNYL 50 mcg/mL INJ 2mL 25 MCG IVP (23:03)
[2023-07-09 23:14] LABS: Troponin(5th) Baseline < 6 ng/L (0-10)
[2023-07-09 23:15] LABS: Alanine Aminotransferase 9 U/L (0-33); Albumin Level 4.9 g/dL (3.5-5.2); Alkaline Phosphatase 119 U/L (35-105); Anion Gap 12.7 (5-19); Aspartate Amino Transferase 16 U/L (0-32); Blood Urea Nitrogen 9 mg/dL (6-20); Calcium 9.9 mg/dL (8.5-10.5); Carbon Dioxide 30 mmol/L (22-29); Chloride 101 mmol/L (98-107); Globulin 2.4 g/dL (1.3-4.6); Glomerular Filtration Rate 101.1 mL/min (90-130); Glucose 76 mg/dL (65-115); Lipase 37 U/L (13-60); Osmolality Calculated 287 mOsm/kg (285-295); Potassium 3.7 mmol/L (3.5-5.1); Sodium 140 mmol/L (136-145); Total Bilirubin 0.3 mg/dL (0.15-1.2); Total Protein 7.3 g/dL (6.6-8.7)
[2023-07-09 23:31] VITALS: BP 134/85; PULSE 108; RESP 16; O2SAT 98
[2023-07-09 23:38] LABS: HCG Qualitative Urine. Negative (Negative)
[2023-07-09 23:43] LABS: Add Urine Microscopic? NO; Charge for UA Resulting for Rev
[2023-07-09 23:46] LABS: Bilirubin Urine Neg (Negative); Blood Urine Neg (Negative); Glucose Urine UA Norm (Normal); Ketones Urine Negative (Negative); Leukocyte Esterase Urine Negative (Negative); Nitrate Urine Negative (Negative); Protein Urine Neg (Negative); Specific Gravity, Urine 1.005 (1.005-1.030); Urine Appearance Clear (CLEAR); Urine Color Light yellow (Yellow); Urobilinogen Urine Neg (Negative); pH Urine 7 (5-7)
[2023-07-10] VITALS: BP 109/79; PULSE 90; RESP 14; O2SAT 100
--- NOTE | 2023-07-10 00:02 | USR_ITS ---
PROCEDURE INFORMATION: Exam: US Duplex Left Lower Extremity Veins, Limited Exam date and time: 07/10/2023 12:35 AM Age: 28 years old Clinical indication: Pain; Leg, upper; Left; Additional info: Dvt-pain in left medial thigh TECHNIQUE: Imaging protocol: Real-time duplex ultrasound of the left extremity with 2-D huber scale, color Doppler flow and spectral waveform analysis including responses to compression and other maneuvers (when performed) with image documentation. Limited exam focused on the left lower extremity veins. COMPARISON: US OB transvaginal [id number] 09/05/2020 10:12 AM FINDINGS: Left deep veins: Unremarkable. The common femoral, femoral, proximal profunda femoral and popliteal veins are patent without thrombus. Normal Doppler waveforms. Normal compressibility and/or augmentation response. Superficial veins: Unremarkable. Saphenofemoral junction is patent without thrombus. Soft tissues: Unremarkable. US/[place] [id number] IMPRESSION: No evidence of deep vein thrombosis.
[2023-07-10] MEDS: ketorolac 30 mg/mL INJ IVP (00:21)
[2023-07-10 00:40] VITALS: BP 114/75; PULSE 92; RESP 14; O2SAT 94
[2023-07-10 01:06] VITALS: BP 115/76; PULSE 87; RESP 14; O2SAT 100
== END 2023-07-10 01:08 | disposition home or self-care (01) ==
PROVIDERS: Emergency Provider Clinical Nurse Specialist Adult Health; PCP Nurse Practitioner Family
DX: R07.9 Chest pain, unspecified (principal); M54.6 Pain in thoracic spine; M79.652 Pain in left thigh
CPT/HCPCS: 71275; 80053; 81003; 81025; 83690; 84484; 85025; 93005; 93971; 96374; 96375; 99285; J1885; J2405; J3010; Q9967

== ENCOUNTER 2023-09-02 03:47 | Emergency (ER) | payer OTHER, MEDICAID, SELFPAY ==
[2023-09-02 04:15] VITALS: BP 117/58; PULSE 79; RESP 24; TEMP 36.7; O2SAT 98; BMI 32.1
--- NOTE | 2023-09-02 04:27 | XRR_ITS ---
PROCEDURE INFORMATION: Exam: XR Chest Exam date and time: 09/02/2023 4:42 AM Age: 28 years old Clinical indication: Shortness of breath; Prior surgery; Surgery date: Post-operative (0-2 days); Surgery type: Abdominoplasty; Additional info: SOB TECHNIQUE: Imaging protocol: Radiologic exam of the chest. Views: 1 view. COMPARISON: CT angio chest PE prot [id number] 07/09/2023 11:11 PM FINDINGS: Lungs: Unremarkable. No consolidation. Pleural spaces: Unremarkable. No pleural effusion. No pneumothorax. Heart/Mediastinum: Unremarkable. No cardiomegaly. Bones/joints: Unremarkable. XR/XR chest 1V portable [id number] IMPRESSION: No acute findings.
--- NOTE | 2023-09-02 04:39 | ECG_ITS ---
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 Measurements Intervals Bastian Rate: 69 P: 27 TN: 128 QRS: 32 QRSD: 88 T: 30 QT: 358 QTc: 385 Interpretive Statements SINUS RHYTHM WITH SINUS ARRHYTHMIA Compared to ECG 07/09/2023 22:18:43 No significant changes Normal EKG Electronically Signed On 09-02-2023 12:41:30 [employer] by Yvette Reyez M.D. [email or web address] county [email or web address] health [id number]
--- NOTE | 2023-09-02 05:02 | W.ED.SOB ---
Documented by User: Gerard Heard DO 09/02/23 05:05 HPI - SOB/Dyspnea General: Chief Complaint: Shortness of Breath/Dyspnea Stated Complaint: surgury yesterday hard to breathe and shoulder jaylin Time Seen by Provider: 09/02/23 04:55 History of Present Illness: HPI Narrative: Patient presents to the ER with complaints of shortness of breath and chest pain when she takes a big deep breath. Patient had a tummy tuck with liposuction on 08/31/2023 in [place]. Yesterday she began to be having shortness of breath. Patient has 2 drains in her abdomen. Patient is satting 98% on room air. Patient's heart rate is 79 bpm. Review of Systems General: Reports: 10 or more systems reviewed and unremarkable except in HPI and below PFSH ED PFSH: Medical History Bleeding in early High risk medication use Surgical History H/O dilation and curettage 09/05/2020- suction D&C performed by Dr. Leung at [facility] No history of previous surgery Family History Grandmother Clotting disorder maternal Diabetes maternal Father Stroke Family/Other Breast cancer maternal aunt Denies family history of Colon cancer Ovarian cancer Heart disease Hyperlipidemia Anesthesia complication Bleeding disorder Hypertension Uterine cancer Thyroid disease Social History Smoking and tobacco/nicotine status: never used tobacco/nicotine Second hand smoke exposure: No Alcohol intake: former Former alcohol use details: prior to Substance/Drug Use: never Adopted: No Caregiver/support person: No Lives independently: Yes Household members: spouse Housing: House Marital status: Number of children: 2 service: No Current occupational status: employed Current occupation: [employer] Pets and animals: No Leisure activites: exercise Do you think of yourself as: Straight/Heterosexual Current gender identity: Female Female Reproductive History: Date of last menstrual period: 08/18/23 Physical Exam Const: COMMON NORMALS: no acute distress, average body habitus, patient oriented x3, no limitations, healthy appearing, alert and well nourished HENMT: COMMON NORMALS: normocephalic, atraumatic, hearing grossly normal bilaterally, moist oral mucous membranes and oropharynx normal HEAD & SCALP: normocephalic and atraumatic Neck/C-Spine: COMMON NORMALS: no JVD Chest: COMMONS NORMALS: normal inspection of the chest and normal palpation of entire chest wall Resp: COMMON NORMALS: normal respiratory effort, No retractions, No use of accessory muscles and clear to auscultation bilaterally AUSCULTATION: clear to auscultation bilaterally Cardio: COMMON NORMALS: no JVD, regular rate, regular rhythm, S1 normal heart sound present, S2 normal heart sound present, No gallops present (Cardio), No clicks present (Cardio), No murmurs present (Cardio) and No rub (Cardio) RATE: regular rate RHYTHM: regular rhythm HEART SOUNDS: S1 normal heart sound present and S2 normal heart sound present GI: COMMON NORMALS: Normal to inspection, nondistended, normoactive bowel sounds present (2 drains noted), Soft to palpation, No hepatosplenomegaly present and no masses PALPATION: Yes Soft to palpation and Yes No hepatosplenomegaly present Neuro: COMMON NORMALS: patient oriented x3 SENSORIUM/ORIENTATION: Yes alert Course Vital Signs: Vital signs: Vital Signs Temperature 98.1 F 09/02/23 04:15 Pulse Rate 71 09/02/23 06:00 Respiratory Rate 18 09/02/23 06:00 Blood Pressure 102/69 09/02/23 06:44 Pulse Oximetry 98 09/02/23 06:00 Oxygen Delivery Me thod Room Air 09/02/23 04:15 MDM - SOB/Dyspnea Differential Diagnosis Unlikely acute exacerbation of chronic obstructive airways disease, congestive heart failure, community acquired pneumonia, asthma with exacerbation or pulmonary embolism Medical Records I reviewed the patient's medical records. Lab Data I reviewed the patient's lab results. 09/02/23 05:15 09/02/23 05:15 Labs/Radiology: Radiology Impressions Chest X-Ray 09/02/23 04:27 IMPRESSION: No acute findings. Laboratory Results WBC 6.65 10^3/uL (3.29-11.43) 09/02/23 05:15 RBC 3.53 10^6/uL (3.85-5.65) L 09/02/23 05:15 Hgb 11.00 g/dL (11.27-16.99) L 09/02/23 05:15 Hct 34.6 % (36-47) L 09/02/23 05:15 MCV 98.0 fl (85-98) 09/02/23 05:15 MCH 31.2 pg (27-33) 09/02/23 05:15 MCHC 31.8 g/dL (30-55) 09/02/23 05:15 RDW 12.5 % (12.1-15.1) 09/02/23 05:15 Plt Count 216 10^3/cmm (157-399) 09/02/23 05:15 MPV 9.3 fL (7.4-10.4) 09/02/23 05:15 Neut % (Auto) 51.8 % 09/02/23 05:15 Lymph % (Auto) 37.4 % 09/02/23 05:15 [place] % (Auto) 8.7 % 09/02/23 05:15 Eos % (Auto) 1.1 % 09/02/23 05:15 Baso % (Auto) 0.8 % 09/02/23 05:15 Neut # (Auto) 3.45 10^3/uL (1.8-7.7) 09/02/23 05:15 Lymph # (Auto) 2.5 10^3/uL (0.8-4.8) 09/02/23 05:15 [place] # (Auto) 0.6 10^3/uL (0.2-0.9) 09/02/23 05:15 Eos # (Auto) 0.1 10^3/uL (0.0-0.8) 09/02/23 05:15 Baso # (Auto) 0.1 10^3/uL (0.0-0.1) 09/02/23 05:15 Nucleated RBC % (auto) 0 % 09/02/23 05:15 Nucleated RBCs # 0.0 /100WBC 09/02/23 05:15 Sodium 143 mmol/L (136-145) 09/02/23 05:15 Potassium 3.5 mmol/L (3.5-5.1) 09/02/23 05:15 Chloride 107 mmol/L (98-107) 09/02/23 05:15 Carbon Dioxide 28 mmol/L (22-29) 09/02/23 05:15 Anion Gap 11.5 (5-19) 09/02/23 05:15 BUN 11 mg/dL (6-20) 09/02/23 05:15 Creatinine 0.6 mg/dL (0.5-0.9) 09/02/23 05:15 GFR Calculation 120.8 mL/min (90-130) 09/02/23 05:15 Glucose 89 mg/dL (65-115) 09/02/23 05:15 Calculated Osmolality 295 mOsm/kg (285-295) 09/02/23 05:15 Calcium 8.8 mg/dL (8.5-10.5) 09/02/23 05:15 All radiology interpretation(s) finalized by discharge EKG Data EKG 1: I personally reviewed and interpreted this EKG as follows: EKG Interpretation Date: 09/02/23 EKG interpretation time: 04:39 Prior EKG tracings: not available for review Interpretation: EKG shows ventricular rate 69 bpm, NH interval 128, QRS duration 88, QTc of 377, sinus rhythm with sinus arrhythmia Discharge Plan Discharge Patient Disposition: Home Clinical Impression: Abdominal pain Condition: Stable Prescriptions: No Action acetaminophen-codeine 300-30 mg tablet 1 tab PO Q4H PRN (Reason: pain) 5 Days Qty: 20 0RF Control PO triamcinolone acetonide 0.1 % ointment 1 applic topical BID Qty: 80 0RF Rx Instructions: Apply to affected area no more than 2 weeks per month. Not for face phentermine 37.5 mg tablet 37.5 mg PO valacyclovir [Valtrex] 1 gram tablet 2,000 mg PO BID PRN (Reason: HSV-recurrent oral disease.) Qty: 14 0RF Rx Instructions: Take 2 tabs at onset of lesion, repeat dose in 12 hours. azelaic acid [Finacea] 15 % gel 1 applic topical BID 90 Days Qty: 50 2RF Rx Instructions: Apply to face, twice daily, for three months. ketorolac 10 mg tablet 10 mg PO TID PRN (Reason: pain) Qty: 10 0RF Xofluza 40 mg tablet 40 mg PO ONCE Qty: 2 0RF Discharge Orders: Discharge ED (Routine); Ordered 09/02/23 Ordered By: Florin Grace Referrals: Petit,Ramila, GAS TRANSFER OPERATOR [Primary Care Provider] - Discharge Diet: As Directed Discharge Activity: Limit activity as instructed Patient Instructions: Opioid Safety, Pain Management Activity Restrictions/Additional Instructions: Thank you for choosing [facility] for your healthcare needs today. Please realize this is an emergency room and that we are providing you with a medical screening exam and this may not be complete and all inclusive of all the testing and or work up that you may need to determine your ailment or severity of your illness. It is very important that you follow up as instructed or that you return to the Emergency Department should you have concerns or if your condition changes or worsens in any way. You are seen in the emergency room for complaints of abdominal pain and shortness of breath. These are both related to your recent surgery. There is no sign of any acute coronary syndrome pneumonia pneumothorax or pulmonary embolism at this time. Continue the same instructions you were given at the time of discharge from the hospital after your surgery. Contact your surgeon regarding your persistent pain to see if they wish to change your medications. Sign Out Sign Out Data: Patient Sign Out occurred on 09/02/23 at 06:01. Patient's care was discussed, and care was transferred from to Florin Grace DO. Coding Level of Care Code ED Motorcycle Service Technician for Chg Fwd Documented by User: Florin Grace DO 09/02/23 07:10 HPI - SOB/Dyspnea General: Chief Complaint: Shortness of Breath/Dyspnea Stated Complaint: surgury yesterday hard to breathe and shoulder jaylin Time Seen by Provider: 09/02/23 04:55 PFSH ED PFSH: Medical History Bleeding in early High risk medication use Surgical History H/O dilation and curettage 09/05/2020- suction D&C performed by Dr. Leung at [facility] No history of previous surgery Family History Grandmother Clotting disorder maternal Diabetes maternal Father Stroke Family/Other Breast cancer maternal aunt Denies family history of Colon cancer Ovarian cancer Heart disease Hyperlipidemia Anesthesia complication Bleeding disorder Hypertension Uterine cancer Thyroid disease Social History Smoking and tobacco/nicotine status: never used tobacco/nicotine Second hand smoke exposure: No Alcohol intake: former Former alcohol use details: prior to Substance/Drug Use: never Adopted: No Caregiver/support person: No Lives independently: Yes Household members: spouse Housing: House Marital status: Number of children: 2 service: No Current occupational status: employed Current occupation: [employer] Pets and animals: No Leisure activites: exercise Do you think of yourself as: Straight/Heterosexual Current gender identity: Female Course Vital Signs: Vital signs: Vital Signs Temperature 98.1 F 09/02/23 04:15 Pulse Rate 71 09/02/23 06:00 Respiratory Rate 18 09/02/23 06:00 Blood Pressure 102/69 09/02/23 06:44 Pulse Oximetry 98 09/02/23 06:00 Oxygen Delivery Me thod Room Air 09/02/23 04:15 MDM - SOB/Dyspnea Medical Decision Making Care assumed at change of shift. No evidence of pneumonia or acute coronary syndrome vitals labs presentation not suggestive of acute pulmonary embolism. Suspect her abdominal pain is causing discomfort with deep breathing which is causing her to have a sensation of shortness of breath she is sats have been good she has not been tachycardic here we will discharge home continue pain medications follow-up with her primary care doctor and surgeon. Continue same instruction she had a discharge from the time of her surgery. Differential Diagnosis Likely acute exacerbation of chronic obstructive airways disease, community acquired pneumonia, asthma with exacerbation and pulmonary embolism Lab Data 09/02/23 05:15 09/02/23 05:15 Labs/Radiology: Radiology Impressions Chest X-Ray 09/02/23 04:27 IMPRESSION: No acute findings. Laboratory Results WBC 6.65 10^3/uL (3.29-11.43) 09/02/23 05:15 RBC 3.53 10^6/uL (3.85-5.65) L 09/02/23 05:15 Hgb 11.00 g/dL (11.27-16.99) L 09/02/23 05:15 Hct 34.6 % (36-47) L 09/02/23 05:15 MCV 98.0 fl (85-98) 09/02/23 05:15 MCH 31.2 pg (27-33) 09/02/23 05:15 MCHC 31.8 g/dL (30-55) 09/02/23 05:15 RDW 12.5 % (12.1-15.1) 09/02/23 05:15 Plt Count 216 10^3/cmm (157-399) 09/02/23 05:15 MPV 9.3 fL (7.4-10.4) 09/02/23 05:15 Neut % (Auto) 51.8 % 09/02/23 05:15 Lymph % (Auto) 37.4 % 09/02/23 05:15 [place] % (Auto) 8.7 % 09/02/23 05:15 Eos % (Auto) 1.1 % 09/02/23 05:15 Baso % (Auto) 0.8 % 09/02/23 05:15 Neut # (Auto) 3.45 10^3/uL (1.8-7.7) 09/02/23 05:15 Lymph # (Auto) 2.5 10^3/uL (0.8-4.8) 09/02/23 05:15 [place] # (Auto) 0.6 10^3/uL (0.2-0.9) 09/02/23 05:15 Eos # (Auto) 0.1 10^3/uL (0.0-0.8) 09/02/23 05:15 Baso # (Auto) 0.1 10^3/uL (0.0-0.1) 09/02/23 05:15 Nucleated RBC % (auto) 0 % 09/02/23 05:15 Nucleated RBCs # 0.0 /100WBC 09/02/23 05:15 Sodium 143 mmol/L (136-145) 09/02/23 05:15 Potassium 3.5 mmol/L (3.5-5.1) 09/02/23 05:15 Chloride 107 mmol/L (98-107) 09/02/23 05:15 Carbon Dioxide 28 mmol/L (22-29) 09/02/23 05:15 Anion Gap 11.5 (5-19) 09/02/23 05:15 BUN 11 mg/dL (6-20) 09/02/23 05:15 Creatinine 0.6 mg/dL (0.5-0.9) 09/02/23 05:15 GFR Calculation 120.8 mL/min (90-130) 09/02/23 05:15 Glucose 89 mg/dL (65-115) 09/02/23 05:15 Calculated Osmolality 295 mOsm/kg (285-295) 09/02/23 05:15 Calcium 8.8 mg/dL (8.5-10.5) 09/02/23 05:15 Discharge Plan Discharge Patient Disposition: Home Clinical Impression: Abdominal pain Condition: Stable Prescriptions: No Action acetaminophen-codeine 300-30 mg tablet 1 tab PO Q4H PRN (Reason: pain) 5 Days Qty: 20 0RF Control PO triamcinolone acetonide 0.1 % ointment 1 applic topical BID Qty: 80 0RF Rx Instructions: Apply to affected area no more than 2 weeks per month. Not for face phentermine 37.5 mg tablet 37.5 mg PO valacyclovir [Valtrex] 1 gram tablet 2,000 mg PO BID PRN (Reason: HSV-recurrent oral disease.) Qty: 14 0RF Rx Instructions: Take 2 tabs at onset of lesion, repeat dose in 12 hours. azelaic acid [Finacea] 15 % gel 1 applic topical BID 90 Days Qty: 50 2RF Rx Instructions: Apply to face, twice daily, for three months. ketorolac 10 mg tablet 10 mg PO TID PRN (Reason: pain) Qty: 10 0RF Xofluza 40 mg tablet 40 mg PO ONCE Qty: 2 0RF Discharge Orders: Discharge ED (Routine); Ordered 09/02/23 Ordered By: Florin Grace Referrals: Ramila Petit APN [Primary Care Provider] - Discharge Diet: As Directed Discharge Activity: Limit activity as instructed Patient Instructions: Opioid Safety, Pain Management Activity Restrictions/Additional Instructions: Thank you for choosing [facility] for your healthcare needs today. Please realize this is an emergency room and that we are providing you with a medical screening exam and this may not be complete and all inclusive of all the testing and or work up that you may need to determine your ailment or severity of your illness. It is very important that you follow up as instructed or that you return to the Emergency Department should you have concerns or if your condition changes or worsens in any way. You are seen in the emergency room for complaints of abdominal pain and shortness of breath. These are both related to your recent surgery. There is no sign of any acute coronary syndrome pneumonia pneumothorax or pulmonary embolism at this time. Continue the same instructions you were given at the time of discharge from the hospital after your surgery. Contact your surgeon regarding your persistent pain to see if they wish to change your medications. Sign Out Sign Out Data: Patient Sign Out occurred on 09/02/23 at 06:01. Patient's care was discussed, and care was transferred from to Florin Grace DO. Coding Level of Care Code ED Motorcycle Service Technician for Evan Childs
[2023-09-02 05:20] LABS: Basophils # 0.1 10^3/uL (0.0-0.1); Basophils % 0.8 %; Eosinophils # 0.1 10^3/uL (0.0-0.8); Eosinophils % 1.1 %; Hematocrit 34.6 % (36-47); Lymphocytes # 2.5 10^3/uL (0.8-4.8); Lymphocytes % 37.4 %; Mean Corpuscular HGB Conc 31.8 g/dL (30-55); Mean Corpuscular Hemoglobin 31.2 pg (27-33); Mean Platelet Volume 9.3 fL (7.4-10.4); Monocytes # 0.6 10^3/uL (0.2-0.9); Monocytes % 8.7 %; Neutrophils # 3.45 10^3/uL (1.8-7.7); Neutrophils % 51.8 %; Nucleated Red Blood Cells % 0 %; Platelet Count 216 10^3/cmm (157-399); Red Blood Count 3.53 10^6/uL (3.85-5.65); Red Cell Distribution Width 12.5 % (12.1-15.1); White Blood Count 6.65 10^3/uL (3.29-11.43)
[2023-09-02 05:43] LABS: Anion Gap 11.5 (5-19); Blood Urea Nitrogen 11 mg/dL (6-20); Calcium 8.8 mg/dL (8.5-10.5); Carbon Dioxide 28 mmol/L (22-29); Chloride 107 mmol/L (98-107); Glomerular Filtration Rate 120.8 mL/min (90-130); Glucose 89 mg/dL (65-115); Osmolality Calculated 295 mOsm/kg (285-295); Potassium 3.5 mmol/L (3.5-5.1); Sodium 143 mmol/L (136-145)
[2023-09-02 06:00] VITALS: BP 102/63; PULSE 71; RESP 18; O2SAT 98
[2023-09-02] MEDS: ketorolac 60 mg/2 mL INJ IM (06:40)
[2023-09-02] MEDS: ondansetron 2 mg/ML SDV 2 mL 4 MG IM (06:42)
[2023-09-02 06:44] VITALS: BP 102/69
== END 2023-09-02 06:46 | disposition home or self-care (01) ==
PROVIDERS: Emergency Medicine; Emergency Provider Family Medicine; PCP Nurse Practitioner Family
DX: R10.9 Unspecified abdominal pain (principal); Z98.890 Other specified postprocedural states
CPT/HCPCS: 71045; 80048; 85025; 93005; 93010; 96372; 99285; J1885; J2405

== ENCOUNTER 2025-05-02 15:06 | Outpatient (CLI) | payer MEDICAID, SELFPAY ==
--- NOTE | 2025-05-02 15:54 | MR_ITS ---
WS: [id number] MRI HEAD WITH CONTRAST TECHNIQUE: Sagittal T1, T2 axial, T2 axial FLAIR, axial susceptibility weighted imaging, axial diffusion weighted images, and coronal T2 images were obtained. Pre and post-T1 axial and post T1 coronal images. ADC and FSPGR images. CLINICAL INFORMATION: HEADACHE COMPARISON: CT 2021 FINDINGS: No evidence of restricted diffusion to suggest acute ischemia. Ventricular system and basilar cisterns are patent. No suspicious intracranial signal abnormalities. Normal posterior fossa. Normal vascular flow voids at the skull base. No extra-axial fluid collections. No evidence of mass or mass effect. No hemosiderin on susceptibly weighted images. Normal optic chiasm and pituitary infundibulum. No abnormal gadolinium enhancement. Normal dural venous sinuses. MR/MR head wo/w con [id number] IMPRESSION: 1. No evidence of restricted diffusion to suggest acute ischemia. 2. No suspicious intracranial signal abnormalities. 3. No hemosiderin on susceptibility-weighted images. 4. Normal posterior fossa. 5. No abnormal gadolinium enhancement.
[2025-05-02] MEDS: gadobenate dimeglumine 20 mL vial 17 ML IV (17:02)
== END 2025-05-02 15:07 | disposition home or self-care (01) ==
LOC: RAD 15:08
PROVIDERS: PCP Nurse Practitioner Family; Visit Provider Nurse Practitioner Family
DX: R51.9 Headache, unspecified (principal)
CPT/HCPCS: 70553; A9577

== ENCOUNTER 2025-07-04 16:36 | Outpatient (CLI) | payer MEDICAID, SELFPAY ==
--- NOTE | 2025-07-04 16:43 | US_ITS ---
WS: [id number] ULTRASOUND THYROID TECHNIQUE: Ultrasound of the thyroid. CLINICAL INFORMATION: THYROMEGALY COMPARISON: None. FINDINGS: Thyroid: Right and left thyroid lobes are normal in size and echotexture. No thyroid nodules are present. A few tiny incidental colloid cysts. Normal vascularity. Normal thyroid volume. Right thyroid lobe: 4.0 cm x 1.8 cm x 1.5 cm Left thyroid lobe: 4.1 cm x 1.5 cm x 1.4 cm. Isthmus: 0.3 cm. Cervical lymphadenopathy: None. US/US thyroid [id number] IMPRESSION: Normal thyroid ultrasound examination.
== END 2025-07-04 16:37 | disposition home or self-care (01) ==
PROVIDERS: PCP Nurse Practitioner Family; Visit Provider Nurse Practitioner Family
DX: E01.0 Iodine-deficiency related diffuse (endemic) goiter (principal)
CPT/HCPCS: 76536

== ENCOUNTER 2025-09-05 13:37 | Outpatient (CLI) | payer MEDICAID, SELFPAY ==
--- NOTE | 2025-09-05 13:44 | XRR_ITS ---
PROCEDURE INFORMATION: Exam: XR Abdomen Exam date and time: 09/05/2025 1:49 PM Age: 30 years old Clinical indication: Prior surgery; Surgery date: 6+ months; Surgery type: --abdominoplasty & lipo; Constipation & liquid bowel movements since abdominoplasty & lipo x 2 years ago. TECHNIQUE: Imaging protocol: Radiologic exam of the abdomen. Views: 2 Views. Upright and supine views. COMPARISON: CR XR KUB portable [id number] 02/21/2022 12:33 AM FINDINGS: Gastrointestinal tract: Normal. No bowel dilation. Intraperitoneal space: Normal. No free air. Organs: Postop changes of cholecystectomy is present. Bones/joints: Unremarkable for age. XR/XR acute abdomen series [id number] IMPRESSION: No acute abnormality identified.
== END 2025-09-05 13:38 | disposition home or self-care (01) ==
LOC: RAD 13:39
PROVIDERS: PCP Nurse Practitioner Family; Visit Provider Nurse Practitioner Family
DX: K59.00 Constipation, unspecified (principal); K91.89 Other postprocedural complications and disorders of digestive system; Z41.1 Encounter for cosmetic surgery
CPT/HCPCS: 74022